=== PATIENT | male | born 1945 | race Caucasian/White ===

== ENCOUNTER 2023-07-04 12:08 | Day surgery (SDC) | payer MEDICARE, SELFPAY ==
[2023-06-28 14:44] LABS: Anion Gap 1 (5-15); BUN 14 mg/dL (7-18); BUN/Creat Ratio 18.5 RATIO (10-20); Calcium,Total 8.9 mg/dL (8.5-10.1); Chloride 105 mmol/L (98-107); Creatinine, Serum 0.76 mg/dL (0.70-1.30); EST Glomerular Filtration Rate 107 mL/min (>60); Est Glom Filt Rate - Afr Amer 129 mL/min (>60); Glucose 122 mg/dL (74-106); Sodium Level 138 mmol/L (136-145)
[2023-07-04 12:43] VITALS: BP 150/70; PULSE 69; RESP 16; TEMP 36.1; O2SAT 95
--- NOTE | 2023-07-04 12:43 | HP.PCM_ITS ---
[facility] - General General Date of Service: 07/04/23 Chief Complaint: Bladder tumor HPI Narrative BRANDYN MCMULLEN, is a 77 M who presents resection of a bladder tumor [facility] Medical History (Updated 07/04/23 @ 12:[address] Tanmay Moon MD) Ambulates with cane Arthritis Former smoker High cholesterol History of edema History of irregular heartbeat Hypertension Injury of head and neck Kidney stones Syncope Wears contact lenses Wears glasses Home Medications amlodipine 10 mg tablet 10 mg PO DAILY 06/25/23 [History Last Taken 07/04/23] ascorbic acid 1,000 mg-bioflavonoids 100 mg tablet, extended release 1 tab PO BID 06/25/23 [History Last Taken Unknown] atorvastatin 20 mg tablet 20 mg PO QHS 06/25/23 [History Last Taken Unknown] diphenhydramine HCl 25 mg capsule (Aler-Cap) 25 mg PO QHS 06/25/23 [History Last Taken Unknown] hydrochlorothiazide 12.5 mg capsule 12.5 mg PO DAILY 06/25/23 [History Last Taken Unknown] latanoprost 0.005 % eye drops 1 drp ophthalmic (eye) QHS 06/25/23 [History Last Taken Unknown] omega 7-cih-kmv-fish oil 60 mg-90 mg-500 mg capsule (Fish Oil) 1 cap PO DAILY 06/25/23 [History Last Taken Unknown] timolol maleate 0.5 % eye drops 1 drp ophthalmic (eye) .QAM 06/25/23 [History Last Taken Unknown] Allergy/AdvReac Type Severity Reaction Status Date / Time No Known Allergies Allergy Verified 07/04/23 12:41 Surgical History (Updated 06/25/23 @ 15:31 by Lisa Winchester) History of dental surgery History of tonsillectomy and adenoidectomy Hx of surgical procedure Hx of surgical procedure Social History Smoking Status: Former smoker Physical Exam Const alert and oriented x3 General Appearance: cooperative HEENT normocephalic, head/scalp atraumatic, EAC's normal and TM's normal bilaterally Eyes PERRL and EOMs intact bilaterally Pupil: sluggish Neck no lymphadenopathy, supple and no JVD General: trachea midline Lymph Lymphatic: no lymphadenopathy noted, lymphedema and lymphadenopathy Resp normal respiratory effort, normal air movement and clear to auscultation bilaterally Cardio regular rate, regular rhythm and peripheral pulses 2+ throughout GI soft to palpation, non-tender and non-distended Extremity normal capillary refill and no clubbing, cyanosis or edema General Extremity: no tenderness to palpation of joints or extremities Skin no rashes or lesions noted General Skin Exam: turgor normal Lesions: no lesions Rashes: no rashes Neuro CN's II-XII intact bilaterally Speech: speech normal Motor Exam: strength 5/5 throughout; Negative for general weakness Psych thought process normal, cooperative and affect normal Appearance: appropriate Results Lab / Micro Data 06/28/23 13:36 Assessment & Plan Assessment/Plan (1) Bladder tumor: PLAN: Plan to proceed with resection of bladder tumor and Mitomycin-C
[2023-07-04] MEDS: Lactated Ringers 1,000 ML 15 ML IV ×2 (12:46→14:51)
[2023-07-04] MEDS: Cefazolin 2 GM in 0.9% Normal Saline (100mL Bag) 100 ML IV (13:11)
--- NOTE | 2023-07-04 13:12 | DCINST_ITS ---
Discharge Instructions Diet Discharge Diet: No restrictions Activity Discharge Activity: Return to Normal Activity and May Not Drive (while taking narcotic pain medications.) Dressing / Incision Call your doctor if you observe: Fever of 101 or Higher Follow Up Care Please Follow Up With: Tanmay Moon MD When: Call [phone] for an appointment Test Results: Test results from this visit will be discussed in further detail at your follow- up appointment, if applicable. Discharge Plan Admission Primary Reason for Your Visit: bladder tumor Attending Provider: Tanmay Moon Primary Care Provider: Shira Mora Discharge Orders/Prescriptions Prescriptions: New oxycodone 5 mg tablet 5 mg PO Q6H PRN (Reason: pain) 7 Days Qty: 14 0RF ciprofloxacin HCl 500 mg tablet 500 mg PO BID Qty: 10 0RF Continued latanoprost 0.005 % drops 1 drp ophthalmic (eye) QHS Patient Comments: INSTILL ONE DROP IN EACH EYE AT BEDTIME timolol maleate 0.5 % drops 1 drp ophthalmic (eye) .QAM Patient Comments: INSTILL ONE DROP IN EACH EYE ONCE DAILY amlodipine 10 mg tablet 10 mg PO DAILY Patient Comments: TAKE 1 TABLET BY MOUTH EVERY DAY hydrochlorothiazide 12.5 mg capsule 12.5 mg PO DAILY Patient Comments: TAKE ONE CAPSULE BY MOUTH EVERY DAY atorvastatin 20 mg tablet 20 mg PO QHS Patient Comments: TAKE ONE TABLET BY MOUTH EVERY DAY AT BEDTIME diphenhydramine HCl [Aler-Cap] 25 mg capsule 25 mg PO QHS ascorbic acid-bioflavonoids 1,000-100 mg tablet extended release 1 tab PO BID omega 3-bez-rjv-fish oil [Fish Oil] 60-90-500 mg capsule 1 cap PO DAILY Referrals / Follow Up: Tanmay Moon MD [Med Staff - Active Staff] - Shira Mora MD [Primary Care Provider] - Disposition Disposition (needs filled in before D/C Order can be placed): Home, Self Care
[2023-07-04] MEDS: MitoMYcin 40 MG in Syringe 1 EACH 2400 MG INSTILLAT (13:49)
--- NOTE | 2023-07-04 13:50 | PCM.OPRPT ---
Report of Operation Date of Procedure: 07/04/23 Pre-Operative Diagnosis: Bladder tumor Post-Operative Diagnosis: Transurethral resection of bladder tumor, the tumor measured 4 cm x 4 cm x 2 cm Surgery/Procedure Performed:: Transurethral action of bladder tumor and instillation of Idamycin C and placement of a right stent Description of Surgical Findings:: Patient presented to the hospital for treatment of a tumor that was found in the bladder with a very large bladder tumor. Patient understands is possible it may not be able to resect the entire tumor. Patient also understands is possible that the patient may need multiple procedures or more invasive procedures to cure him of this cancer. Patient was taken back to the operating room after smooth induction of anesthesia the patient was placed supine on the table. The patient was placed in dorsolithotomy position. The urethra and genitals prepped and draped in usual sterile fashion. I went into the bladder with a 30 degree lens and a cystoscope was performed and identified the tumor the tumors which was about 4 cm x 4 cm x 2 cm in size and occupying mostly the right trigone area of the bladder. I then switched over to the 70 degree lens and inspected the rest of the bladder with a 70 degree lens to make sure there is no other tumors in the bladder and to identify all the tumor locations. The right and left ureteral orifice were identified. The tumor was involved in the Right ureteral orifice. I then placed the Olympus bipolar resectoscope with a large loop into the bladder. I then started resected the tumor and started superficially shaving small little pieces working my way to the base of the tumor. As I went along I then cauterize any bleeders that were encountered during the resection. The tumor pieces were then flushed out of the bladder and continued resecting the tumor until finally I got down to the base of the tumor and the muscle of the bladder was then identified a small little bit of muscle was taken with the resection. The Ellik was used then to evacuate all the tumor pieces out of the bladder. I then cauterized extensively the tumor base and also circumferentially around where the tumor was. Again we made sure to evacuate all the pieces out the bladder. I made sure there was no more bleeding from the base of the bladder and then over the tumor pieces were then evacuated out and sent off as a specimen. I then place a sent on the right side because in order to resect the tumor completely at the resected ureteral orifice so stent was placed on the right side to make sure this orifice healed up properly. All the tissue was sent off for specimen. Matthews catheter was placed. After the resection of the entire tumor was completed then treatment with Mitomycin-C was performed. We then placed the catheter in the bladder and the patient was taken back to the PACU in stable condition. Surgeon: Tanmay Moon Type of Anesthesia: General Specimen's removed: bladder tumor Estimated Blood Loss (mL): 25 Admit VTE Documentation VTE Present on Admission: No VTE Mechan Device Prophylaxis: SCD's VTE Pharm Prophylaxis ordered?: No
[2023-07-04 14:06] VITALS: BP 129/68; BP 150/70; PULSE 65; RESP 16; TEMP 36.4; O2SAT 99
--- NOTE | 2023-07-04 14:10 | BLB_PTH ---
PATHOLOGY RESULTS PATIENT: BRANDYN MCMULLEN LOC: [facility] U#:[id number] AGE/SX: 77/M ROOM: RE07/04/[address]: Dr. Tanmay Moon MD : [id number] BED: DIS: 07/04/2023 SPEC #: [id number] RECD: 07/04/23 14:47 STATUS: GIANNI GALO #: [id number] AUDREY: 07/04/23 14:[address]: Tanmay Moon DEPT: SURGICAL PATHOLOGY RECD BY: Windy England ENTERED: 07/05/23 10:45 SP TYPE: TURB OTHR DR: Dr. Shira Mora MD Tissues: Urinary bladder, NOS Procedures: Surgery Specimen Level V HEADER OPERATION: Transurethral resection of bladder tumor PRE-OP DIAGNOSIS: Bladder tumor TISSUE SUBMITTED: Bladder tumor MICROSCOPIC DIAGNOSIS Bladder tumor, transurethral resection: Papillary urothelial carcinoma, noninvasive. See cancer summary in the comment section. FERNANDA:rg 07/06/2023 COMMENT BLADDER CANCER (TUR) SUMMARY Procedure: Transurethral resection of bladder tumor (TURBT) Tumor site: Not specified Histologic type: Papillary urothelial carcinoma, noninvasive Associated epithelial lesions: None identified Histologic grade: Low grade 1/3 Tumor configuration: Papillary with extensive endophytic pattern Muscularis propria presence: Muscularis propria (detrusor muscle) is present and free of tumor. Lymphvascular invasion: Not identified Tumor extension: Noninvasive papillary carcinoma. Additional pathologic findings: Chronic inflammation. The above summary is in compliance with [employer] (CAP) Cancer Protocols Checklist and [employer] Joint Committee on Cancer (AJCC), Staging Manual, 8th Ed. Case has been reviewed in consultation with Dr. Yung who concurs with the above diagnosis. IDC:AM MICROSCOPIC DESCRIPTION Slides are reviewed. GROSS DESCRIPTION Received in fixative is one container labeled with the patient's name and designated bladder tumor. The specimen consists of multiple irregular fragments of brownish soft tissue that in aggregate measure 4.0 x 2.0 x 0.3 cm. The specimen is totally submitted in two cassettes. / Jennifer 07/05/2023 TC:0 CPT: 26617
[2023-07-04 14:15] VITALS: BP 128/70; BP 150/70; PULSE 63; RESP 16; O2SAT 98
[2023-07-04 14:30] VITALS: BP 124/61; BP 150/70; PULSE 65; RESP 16; O2SAT 97
[2023-07-04 14:45] VITALS: BP 133/74; BP 150/70; PULSE 65; RESP 16; TEMP 36.4; O2SAT 96
--- NOTE | 2023-07-04 14:45 | SUR.PHASEI ---
MITOMYCIN DRAINED FROM BLADDER AND CATHETER REMOVED.
[2023-07-04 15:50] VITALS: BP 121/69; BP 150/70; PULSE 68; RESP 16; TEMP 35.8; O2SAT 92
--- OUTSIDE RECORDS SUMMARY | 2023-07-05 03:39 | XMS RPT_ITS ---
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 Name Role Phone MERRITT POST MD Attending Unavailable MERRITT POST MD Admitting Unavailable MERRITT POST MD Primary Care Unavailable TERESA DOWNEY Consulting Unavailable PROVIDER, UNKNOWN Consulting Unavailable PROVIDER, UNKNOWN Consulting Unavailable PROVIDER, UNKNOWN Consulting Unavailable MERRITT POST MD Primary Care Unavailable MERRITT POST MD Attending Unavailable MERRITT POST MD Admitting Unavailable TERESA DOWNEY Consulting Unavailable PROVIDER, UNKNOWN Consulting Unavailable PROVIDER, UNKNOWN Consulting Unavailable PROVIDER, UNKNOWN Consulting Unavailable MERRITT POST MD Primary Care Unavailable MERRITT POST MD Attending Unavailable MERRITT POST MD Admitting Unavailable TERESA DOWNEY Consulting Unavailable PROVIDER, UNKNOWN Consulting Unavailable PROVIDER, UNKNOWN Consulting Unavailable PROVIDER, UNKNOWN Consulting Unavailable MERRITT POST MD Attending Unavailable MERRITT POST MD Admitting Unavailable MERRITT POST MD Primary Care Unavailable MERRITT POST MD Primary Care Unavailable MERRITT POST MD Attending Unavailable MERRITT POST MD Admitting Unavailable TERESA DOWNEY Consulting Unavailable PROVIDER, UNKNOWN Consulting Unavailable PROVIDER, UNKNOWN Consulting Unavailable PROVIDER, UNKNOWN Consulting Unavailable PROBLEMS DATE TYPE CONDITION / CODE ATTENDING STATUS [facility] 04/11/2023 Principle Diagnosis Gross hematuria / R310(ICD-10) MERRITT POST MD Active [facility] 04/11/2023 Secondary Diagnosis Elevated prostate specific antigen [PSA] / R9720(ICD-10) MERRITT POST MD Active [facility] 04/11/2023 Principle Diagnosis Elevated prostate specific antigen [PSA] / R9720(ICD-10) MERRITT POST MD Active [facility] 01/15/2023 Admitting Diagnosis Essential (primary) hypertension / I10(ICD-10) MERRITT POST MD Active [facility] 01/15/2023 Principle Diagnosis Essential (primary) hypertension / I10(ICD-10) MERRITT POST MD Active [facility] 01/15/2023 Secondary Diagnosis Hyperlipidemia, unspecified / E785(ICD-10) MERRITT POST MD Active [facility] 01/15/2023 Secondary Diagnosis Encounter for screening for malignant neoplasm of prostate / Z125(ICD-10) MERRITT POST MD Active [facility] 07/19/2022 Principle Diagnosis Hyperlipidemia, unspecified / E785(ICD-10) MERRITT POST MD Active [facility] PROCEDURES No Procedure Records Found RESULTS CT ABDOMEN/PELVIS WO Observed: 3 2:12 PM Status: F Source: [place] [id number] Patient: BRANDYN MCMULLEN Phone#: : 1945 Age: 77 Gender: M Pt. Type: Out Account: [id number] Location: Ordering: MERRITT POST Exam Date: 04/19/2023/14:05 Family Phys: Charge Code: 658002 Physician: Rich Order #: [id number] Dose#: 12.0 mGy PROCEDURE: CT ABDOMEN/PELVIS WITHOUT CONTRAST COMPARISON: None. INDICATIONS: Gross hematuria. TECHNIQUE: CT images were created without intravenous contrast. All CT scans at this facility use dose modulation, iterative reconstruction, and/or weight based dosing when appropriate to reduce radiation dose to as low as reasonably achievable. IV CONTRAST: No IV contrast used,0ml TOTAL DOSE: 12.0 CTDIvol(mGy) FINDINGS: LIVER: Normal. No enlargement, atrophy, abnormal density, or significant focal lesion. BILIARY: Normal. No visible dilatation or calcification. PANCREAS: Normal. No lesion, fluid collection, ductal dilatation, or atrophy. SPLEEN: Normal. No enlargement or focal lesion. KIDNEYS: Bilateral renal cysts are present. The largest on the left is 9.5 centimeters. Bilateral nonobstructing renal calculi are present. ADRENALS: Normal. No mass or enlargement. AORTA/VASCULAR: Calcification is present. No aneurysm. RETROPERITONEUM: Normal. No mass or adenopathy. BOWEL/MESENTERY: Normal. No visible mass, obstruction, or bowel wall thickening. ABDOMINAL WALL: Normal. No mass or hernia. URINARY BLADDER: Normal. No visible focal wall thickening, lesion, or calculus. PELVIC NODES: Normal. No adenopathy. PELVIC ORGANS: The prostate impresses on the base of bladder and measures 4.9 x 5.7 x 4.9 centimeters. BONES: Degenerative changes of the spine are present. There is minimal anterolisthesis at the L4-5 level. L4-5 and L5-S1 interspaces are narrowed. LUNG BASES: Normal. No visible pulmonary or pleural disease. OTHER: Negative. Continued Report - Page 2 of 2 Patient: BRANDYN MCMULLEN Phone#: : 1945 Age: 77 Gender: M Pt. Type: Out Account: [id number] Location: Ordering: MERRITT BRANDEE Exam Date: 04/19/2023/14:05 Family Phys: Charge Code: [id number] Physician: Rich Order #: [id number] Dose#: 12.0 mGy CONCLUSION: 1. Bilateral renal cysts are present. 2. Bilateral nonobstructing renal calculi are present. 3. There is no evidence of ureteral calculus. Dictated by: Tiny Urban MD on 04/19/2023 at 15:46 Approved by: Tiny Urban MD on 04/19/2023 at 15:54 CBC + DIFF Collected: 3 3:05 PM Status: F Source: [facility] REPOSITORY TYPE CODE TESTS RESULT OUT OF RANGE REFERENCE UNITS LAB CBC + DIFF(LOINC) CBC + DIFF Result Comment: CBC-COMPLETE BLOOD COUNT LAB WBC(LOINC) WBC 5.9 4.5 - 10.8 x 10EE3/UL LAB RBC(LOINC) RBC 5.15 4.50 - 6.00 x 10EE6/UL LAB HEMOGLOBIN(JENNIFER NC) HEMOGLOBIN 15.8 13.0 - 17.5 g/dl LAB HEMATOCRIT(JENNIFER NC) HEMATOCRIT 48.0 40.0 - 52.0 % LAB MCV(LOINC) MCV 93 81 - 98 fl LAB MCH(LOINC) MCH 31 27 - 33 pg LAB MCHC(LOINC) MCHC 33 32 - 36 X10 3 LAB RDW/CV(LOINC) RDW/CV 14.5 12.0 - 15.6 % LAB PLATELET(LOINC ) PLATELET 250 150 - 450 x10EE3/U L LAB MPV(LOINC) MPV 8.2 6.4 - 10.5 fl Result Comment: AUTOMATED DI FFERENTIAL LAB NEUT %(LOINC) NEUT % 65.2 46.0 - 76.0 % LAB LYMPH %(LOINC) LYMPH % 22.0 20.0 - 45.0 % LAB MONOS %(LOINC) MONOS % 8.3 0.0 - 10.0 % LAB EO %(LOINC) EO % 3.9 0.0 - 7.0 % LAB BASO %(LOINC) BASO % 0.6 0.0 - 2.0 % LAB Lymph #(LOINC) Lymph # 1.30 0.80 - 2.80 x10EE 3/U L LAB Neut #(LOINC) Neut # 3.80 1.50 - 7.10 x10EE3 /U L LAB [place]ter[place] #(LOINC) Otero # 0.50 0.20 - 1.00 x10EE3 /U L LAB EO #(LOINC) EO # 0.20 0.00 - 0.50 x10EE3/U L LAB Baso #(LOINC) Baso # 0.00 0.00 - 0.10 x10EE3 /U L LAB MANUAL DIFF(LOINC) MANUAL DIFF N/A LAB MORPHOLOGY(JENNIFER NC) MORPHOLOGY N/A Performed By: #### [id number] ## ## [facility],[address] [place], [place] [id number] BMP WITH EGFR Collected: 3 3:05 PM Status: F Source: [facility] REPOSITORY TYPE CODE TESTS RESULT OUT OF RANGE REFERENCE UNITS LAB BMP with eGFR(LOINC) BMP with eGFR Result Comment: BASIC METABO LIC PANEL LAB SODIUM(LOINC) SODIUM 142 136 - 145 mmol/l LAB POTASSIUM(LOIN C) POTASSIUM 3.8 3.5 - 5.1 mmol/L LAB CHLORIDE(LOINC ) CHLORIDE 105 98 - 107 mmol/L LAB CO2(LOINC) CO2 25.9 21.0 - 32.0 mmol/L LAB GLUCOSE(LOINC) GLUCOSE 109 High 74 - 106 mg/dl LAB BUN(LOINC) BUN 14 7 - 18 mg/dl LAB CREATININE(JENNIFER NC) CREATININE 0.80 0.70 - 1.30 mg/dl LAB CALCIUM(LOINC) CALCIUM 8.7 8.5 - 10.1 mg/dl LAB ANION GAP(LOINC) ANION GAP 15 10 - 20 mmol/L LAB AGE(LOINC) AGE 77 years LAB eGFR(LOINC) eGFR >60 60 - 999 ML/MINUTE LAB eGFR(AA)(LOINC ) eGFR(AA) >60 60 - 999 ML/MINUTE Result Comment: ACCORDING TO THE NATIONAL KIDNEY DISEASE EDUCATION PROGRAM(NKDE), A NORMAL eGFR IS A VALUE GREATER THAN OR EQUAL TO 60 ML/MIN/1.73 SQ METERS. CHRONIC KIDNEY DISEASE: <60mL/MIN/1.73 SQ METERS KIDNEY FAILURE: <15mL/MIN/1.73 SQ METERS THIS TEST SHOULD ONLY BE USED FOR PATIENTS 18 YEARS OF AGE AND OLDER. Performed By: #### [id number] ## ## [place] [id number] PSA CANCER SCREENING (G0103) Collected: 04/11/2023 3:05 PM Status: F Source: [facility] REPOSITORY TYPE CODE TESTS RESULT OUT OF RANGE REFERENCE UNITS LAB PSA(INC) PSA 4.69 High 0.00 - 4.00 ng/ml Performed By: #### [id number] ## ## [place] [id number] URINALYSIS Collected: 3:05 PM Status: F Source: [facility] REPOSITORY TYPE CODE TESTS RESULT OUT OF RANGE REFERENCE UNITS LAB URINALYSIS(JENNIFER NC) URINALYSIS Result Comment: URINALYSIS LAB Specimen Type(LOINC) Specimen Type R LAB Color(LOINC) Color red NORMAL: YELLOW LAB Clarity(LOINC) Clarity bloody IVAN L: CLEAR LAB ph(LOINC) ph 6.5 NORMAL: 5.0-8.0 LAB Protein(LOINC) Protein 100 Abnormal IVAN L: NEGATIVE LAB Glucose(LOINC) Glucose NORM IVAN L: NORMAL LAB Ketone(LOINC) Ketone 5 Abnormal NORMAL : NEGATIVE LAB Bilirubin(LOIN C) Bilirubin NEG NORMAL: NEGATIVE LAB Blood(LOINC) Blood 250 Abnormal NORMAL: NEGATIVE LAB Urobilinog(JENNIFER NC) Urobilinog NORM NORMAL: NORMAL LAB Sp [place](LOINC) Sp [place] 1.010 NORMAL: 1.010-1.030 LAB Nitrite(LOINC) Nitrite NEG IVAN L: NEGATIVE LAB Leukocytes(JENNIFER NC) Leukocytes 25 Abnormal NORMAL: NEGATIVE LAB Microscopic(LO INC) Microscopic SEE BELOW Result Comment: MICROSCOPIC LAB Wbc(LOINC) Wbc 1-5 0-5/hpf LAB Rbc(LOINC) Rbc TNTC 0-3/hpf LAB Casts(LOINC) Casts NONE LAB Crystals(LOINC ) Crystals NONE LAB Amorphous(LOIN C) Amorphous NONE LAB Bacteria(LOINC ) Bacteria NONE LAB Epi Cells(LOINC) Epi Cells OCC LAB Mucous(LOINC) Mucous NONE LAB Yeast(LOINC) Yeast NONE Performed By: #### [id number] ## ## [place] [id number] PSA CANCER SCREENING ([id number]) Collected: 01/15/2023 11:18 AM Status: F Source: [facility] REPOSITORY TYPE CODE TESTS RESULT OUT OF RANGE REFERENCE UNITS LAB PSA(LOINC) PSA 4.41 High 0.00 - 4.00 ng/ml Performed By: #### [id number] ## ## [facility],[address] [place] [address] LIPID PROFILE Collected: 11:18 AM Status: F Source: [facility] REPOSITORY TYPE CODE TESTS RESULT OUT OF RANGE REFERENCE UNITS LAB LIPID PROFILE(LOINC) LIPID PROFILE Result Comment: LIPID PROFIL E LAB TRIGLYCERIDE(LO INC) TRIGLYCERIDE 66 0 - 150 mg/dl LAB CHOLESTEROL(JENNIFER NC) CHOLESTEROL 133 0 - 240 mg/dl LAB HDL(LOINC) HDL 58 40 - 60 mg/dl LAB CHOL/HDL(LOINC) CHOL/HDL 2.3 0.0 - 5.0 LAB LDL(LOINC) LDL 62 0 - 129 mg/dl Performed By: #### [id number] ## ## [facility],[address] [place] [address] CMP WITH EGFR Collected: 3 11:18 AM Status: F Source: [facility] REPOSITORY TYPE CODE TESTS RESULT OUT OF RANGE REFERENCE UNITS LAB CMP with eGFR(LOINC) CMP with eGFR Result Comment: COMPREHENSIV E METABOLIC PANEL LAB SODIUM(LOINC) SODIUM 142 136 - 145 mmol/l LAB POTASSIUM(LOIN C) POTASSIUM 3.6 3.5 - 5.1 mmol/L LAB CHLORIDE(LOINC ) CHLORIDE 103 98 - 107 mmol/L LAB CO2(LOINC) CO2 28.9 21.0 - 32.0 mmol/L LAB GLUCOSE(LOINC) GLUCOSE 98 74 - 106 mg/dl LAB BUN(LOINC) BUN 11 7 - 18 mg/dl LAB CREATININE(JENNIFER NC) CREATININE 0.78 0.70 - 1.30 mg/dl LAB AST/SGOT(LOINC ) AST/SGOT 18 15 - 37 U/L LAB ALK PHOS(LOINC) ALK PHOS 94 46 - 116 U/L LAB CALCIUM(LOINC) CALCIUM 9.0 8.5 - 10.1 mg/dl LAB TOTAL PROTEIN(LOINC) TOTAL PROTEIN 6.9 6.4 - 8.2 g/dl LAB ALBUMIN(LOINC) ALBUMIN 3.7 3.4 - 5.0 g/dL LAB GLOBULIN(LOINC ) GLOBULIN 3.2 1.5 - 3.8 G/DL LAB A/G RATIO(LOINC) A/G RATIO 1.2 0.9 - 1.6 LAB TOTAL BILI(LOINC) TOTAL BILI 0.7 0.2 - 1.0 mg/dl LAB B/C RATIO(LOINC) B/C RATIO 14 0 - 30 ratio LAB ALT/SGPT(LOINC ) ALT/SGPT 25 16 - 63 U/L LAB ANION GAP(LOINC) ANION GAP 14 10 - 20 mmol/L LAB AGE(LOINC) AGE 77 years LAB eGFR(LOINC) eGFR >60 60 - 999 ML/MINUT E LAB eGFR(AA)(LOINC ) eGFR(AA) >60 60 - 999 ML/MINUT E Result Comment: ACCORDING TO THE NATIONAL KIDNEY DISEASE EDUCATION PROGRAM(NKDE), A NORMAL eGFR IS A VALUE GREATER THAN OR EQUAL TO 60 ML/MIN/1.73 SQ METERS. CHRONIC KIDNEY DISEASE: <60mL/MIN/1.73 SQ METERS KIDNEY FAILURE: <15mL/MIN/1.73 SQ METERS THIS TEST SHOULD ONLY BE USED FOR PATIENTS 18 YEARS OF AGE AND OLDER. Performed By: #### [id number] ## ## [facility],[address] [place] [address] CBC + DIFF Collected: 3 11:18 AM Status: F Source: [facility] REPOSITORY TYPE CODE TESTS RESULT OUT OF RANGE REFERENCE UNITS LAB CBC + DIFF(LOINC) CBC + DIFF Result Comment: CBC-COMPLETE BLOOD COUNT LAB WBC(LOINC) WBC 7.0 4.5 - 10.8 x 10EE3/UL LAB RBC(LOINC) RBC 5.33 4.50 - 6.00 x 10EE6/UL LAB HEMOGLOBIN(JENNIFER NC) HEMOGLOBIN 16.5 13.0 - 17.5 g/dl LAB HEMATOCRIT(JENNIFER NC) HEMATOCRIT 48.3 40.0 - 52.0 % LAB MCV(LOINC) MCV 91 81 - 98 fl LAB MCH(LOINC) MCH 31 27 - 33 pg LAB MCHC(LOINC) MCHC 34 32 - 36 X10 3 LAB RDW/CV(LOINC) RDW/CV 14.0 12.0 - 15.6 % LAB PLATELET(LOINC ) PLATELET 227 150 - 450 x10EE3/U L LAB MPV(LOINC) MPV 8.4 6.4 - 10.5 fl Result Comment: AUTOMATED DI FFERENTIAL LAB NEUT %(LOINC) NEUT % 57.2 46.0 - 76.0 % LAB LYMPH %(LOINC) LYMPH % 26.9 20.0 - 45.0 % LAB MONOS %(LOINC) MONOS % 8.5 0.0 - 10.0 % LAB EO %(LOINC) EO % 7.2 High 0.0 - 7.0 % LAB BASO %(LOINC) BASO % 0.2 0.0 - 2.0 % LAB Lymph #(LOINC) Lymph # 1.90 0.80 - 2.80 x10EE 3/U L LAB Neut #(LOINC) Neut # 4.00 1.50 - 7.10 x10EE3 /U L LAB Otero #(LOINC) Otero # 0.60 0.20 - 1.00 x10EE3 /U L LAB EO #(LOINC) EO # 0.50 0.00 - 0.50 x10EE3/U L LAB Baso #(LOINC) Baso # 0.00 0.00 - 0.10 x10EE3 /U L LAB MANUAL DIFF(LOINC) MANUAL DIFF SEE BELOW LAB SEGS(LOINC) SEGS 57 50 - 70 % LAB LYMPH(LOINC) LYMPH 28 20 - 40 % LAB MONOS(LOINC) MONOS 8 0 - 8 % LAB EO(LOINC) EO 6.0 High 0.0 - 4.0 % LAB BASO(LOINC) BASO 1.0 0.0 - 2.0 % LAB CELL COUNT(LOINC) CELL COUNT 100 LAB MORPHOLOGY(JENNIFER NC) MORPHOLOGY REVIEWED Performed By: #### [id number] ## ## [place] [id number] LIPID PROFILE Collected: 07/19/2022 1:33 PM Status: F Source: [facility] REPOSITORY TYPE CODE TESTS RESULT OUT OF RANGE REFERENCE UNITS LAB LIPID PROFILE(LOINC) LIPID PROFILE Result Comment: LIPID PROFIL E LAB TRIGLYCERIDE(LO INC) TRIGLYCERIDE 79 0 - 150 mg/dl LAB CHOLESTEROL(JENNIFER NC) CHOLESTEROL 138 0 - 240 mg/dl LAB HDL(LOINC) HDL 57 40 - 60 mg/dl LAB CHOL/HDL(LOINC) CHOL/HDL 2.4 0.0 - 5.0 LAB LDL(LOINC) LDL 65 0 - 129 mg/dl Performed By: #### [id number] ## ## [place] [id number] HEPATIC FUNCTION PANEL Collected: 07/19/2022 1:33 PM Status: F Source: [facility] REPOSITORY TYPE CODE TESTS RESULT OUT OF RANGE REFERENCE UNITS LAB HEPATIC FUNCTION PANEL(LOINC) HEPATIC FUNCTION PANEL Result Comment: HEPATIC FUNC TION PROFILE LAB ALBUMIN(LOINC) ALBUMIN 3.5 3.4 - 5.0 g/dL LAB ALK PHOS(LOINC) ALK PHOS 110 46 - 116 U/L LAB AST/SGOT(LOINC) AST/SGOT 16 15 - 37 U/L LAB ALT/SGPT(LOINC) ALT/SGPT 22 16 - 63 U/L LAB TOTAL BILI(LOINC) TOTAL BILI 0.6 0.2 - 1.0 mg/dl LAB DIRECT BILI(LOINC) DIRECT BILI 0.1 0.0 - 0.2 mg/dl LAB TOTAL PROTEIN(LOINC) TOTAL PROTEIN 7.0 6.4 - 8.2 g/dl Performed By: #### [id number] ## ## [facility],[address] [place] [address] ALLERGIES No Allergies Records Found ENCOUNTERS ADMIT/DISCHARGE ACCOUNT NUMBER ADMITTING ENCOUNTER CLASS LOCATION SOURCE 04/19/2023/ 3 [id number] MERRITT POST MD Ambulatory Building:[facility] 04/11/2023/ 3 [id number] MERRITT POST MD Ambulatory Building:[facility] 04/11/2023 [id number] MERRITT POST MD Ambulatory Building:[facility] 01/15/2023/ 3 [id number] MERRITT POST MD Ambulatory Building:[facility] 07/19/2022/ 2 [id number] MERRITT POST MD Ambulatory Building:[facility] PAYERS ENCOUNTER GUARANTOR PAYER SUBSCRIBER SOURCE 04/19/2023 BRANDYN Saenz [place]: [id number] [address] [address]Wsc: () Primary Insurance:[employer] MEDICARE ADVANTAGE OUTPATIENTPolicy Number: [id number] Date:Plan Name: BRANDYN Saenz [place]: [id number] [address] [address] [facility] 04/19/2023 Secondary Insurance:MEDICAREPolicy Number: [id number] Date: BRANDYN Saenz [place]: [id number] [address] [address] [facility] 04/11/2023 BRANDYN MCMULLENDOB: [address] [address]Azq: (HP) Primary Insurance:HUMANAPolicy Number: [id number] Date:Plan Name:NAVI MCMULLENDOB: [id number] [address] [address] [facility] 04/11/2023 Secondary Insurance:MEDICAREPolicy Number: [id number] Date:Plan Name:NAVI MCMULLENDOB: [id number] [address] [address] [facility] 04/11/2023 BRANDYN MCMULLENDOB: [id number] [address] [address]Htz: (HP) Primary Insurance:HUMANAPolicy Number: [id number] Date:Plan Name:NAVI MCMULLENDOB: [id number] [address] [address] [facility] 04/11/2023 Secondary Insurance:MEDICAREPolicy Number: [id number] Date: BRANDYN ORDOÑEZB: [id number] [address] [address] [facility] 01/15/2023 BRANDYN MCMULLENDOB: [address] [address]Qzs: (HP) Primary Insurance:HUMA[employer] MEDICARE ADVANTAGE OUTPATIENTPolicy Number: [id number] Date:Plan Name:OBIE ORDOÑEZB: [id number] [address] [address] [facility] 07/19/2022 BRANDYN MCMULLENDOB: [id number] [address] [address]Jad: (HP) [facility] Insurance:[facility]icy Number: [id number] Date:Plan Name:NAVI HEATON: [id number] [address] [address] [facility] 07/19/2022 Secondary Insurance:MEDICAREPolicy Number: [id number] Date:Plan Name:MALATHI HEATON: [id number] [address] [address] [facility]
== END 2023-07-04 15:59 | disposition home or self-care (01) ==
LOC: SDC 12:09 → AC 12:09
PROVIDERS: Anesthesiology; PCP Student in an Organized Health Care Education/Training Program; Referring Provider Urology; Visit Provider Urology
PROC: 0TBB8ZZ Excision of Bladder, Via Natural or Artificial Opening Endoscopic (ICD-10-PCS; CPT 52235; principal; 2023-07-04 14:00)
DX: C67.9 Malignant neoplasm of bladder, unspecified (principal); I10 Essential (primary) hypertension; E78.00 Pure hypercholesterolemia, unspecified; Z87.891 Personal history of nicotine dependence; Z79.899 Other long term (current) drug therapy
CPT/HCPCS: 52235; 00912; 36415; 80048; 88307; 93005; J7120; J9280; C1769; C2617; J2405

== ENCOUNTER 2024-05-16 09:26 | Day surgery (SDC) | payer MEDICARE, SELFPAY ==
[2024-05-16] VITALS (9 sets, daily range): BP systolic 90–140; BP diastolic 56–82; PULSE 55–70; RESP 16; TEMP 36.1–36.3; O2SAT 92–100; BMI 25.4
--- NOTE | 2024-05-16 | URE_PTH ---
PATIENT: BRANDYN MCMULLEN [place] [facility] [place][id number] AGE/SX: 78/M ROOM: RE05/16/[address]: Dr. Tanmay Moon MD : 1945 BED: DIS: 05/16/2024 SPEC #: [id number] RECD: 05/16/24 11:07 STATUS: GIANNI GALO #: [id number] AUDREY: 05/16/24 00:[address]: Tanmay Moon DEPT: SURGICAL PATHOLOGY RECD BY: Windy England ENTERED: 05/16/24 13:21 SP TYPE: URETER BX OTHR DR: Dr. Shira Mora MD Tissues: A - Ureter, NOS B - Ureter, NOS Procedures: Surgery Specimen Level IV HEADER OPERATION: Transurethral resection bladder, right ureteroscopy PRE-OP DIAGNOSIS: Malignant neoplasm of trigone of bladder, hydromephrosis with ureteral stricture TISSUE SUBMITTED: A- Biopsy of ureteral mass #1, B- Biopsy of ureteral mass #2 MICROSCOPIC DIAGNOSIS A. Ureteral mass #1, biopsy: Fragments of stone. See comment. B. Ureteral mass #2, biopsy: A fragment of urothelial mucosa with minimal chronic inflammation and foreign body giant cell reaction. Negative for malignancy. FERNANDA/ 05/19/2024 COMMENT A. No urothelial tissue is identified in the specimen. Correlation with clinical, cystoscopy findings and appropriate follow up are necessary. MICROSCOPIC DESCRIPTION Slides are reviewed. GROSS DESCRIPTION A. Received in fixative is one container labeled with the patient's name and designated Biopsy of ureteral mass #1. The specimen consists of three fragments of burris-brown indurate tissue/?stones measuring in aggregate 0.4 x 0.1 x 0.1cm. The entire specimen is submitted in one cassette. B. Received in fixative is one container labeled with the patient's name and designated Biopsy of ureteral mass #2. The specimen consists of one irregular fragment of light burris soft tissue that measures 0.2 x 0.2 x 0.1 cm. The specimen is totally submitted in one cassette. FERNANDA/ 05/16/2024 TC:3 CPT:[id number]
[2024-05-16] MEDS: Lactated Ringers 1,000 ML 15 ML IV (10:05)
--- NOTE | 2024-05-16 10:15 | PCM.PRE.AN2 ---
ASA Classification* ASA Classification ASA Classification: 2 Assessment & Plan Anesthesia* Anesthesia Assessment Anesthesia Assessment: Discussed sedation and/or anesthesia options, risks, benefits, and alternatives with patient/parents/legal guardian/POA. Questions invited. The patient/parents/legal guardian/POA seems to understand and agrees to proceed with anesthesia plan. Reviewed the physical assessment, medical history, allergy history and patient home medications list prior to surgery/procedure/anesthetic and documented any changes. Performed airway and anesthesia risk assessments. Anesthesia Type Anesthesia Type: General Anesthesia Focused Assessment* Temperature: 97.2 F Pulse Rate: 70 Blood Pressure: 140/82 Respiratory Rate: 16 Pulse Ox: 95 Airway Assessment Mouth opens: >3 cm Mallampati Score: II Focused Labs Anesthesia Preop lab: CBC CHEMISTRY Potassium 4.0 mmol/L (3.5-5.1) 06/28/23 13:36 Sodium 138 mmol/L (136-145) 06/28/23 13:36 BUN 14 mg/dL (7-18) 06/28/23 13:36 Creatinine 0.76 mg/dL (0.70-1.30) 06/28/23 13:36 Glucose 122 mg/dL (74-106) H 06/28/23 13:36 COAG Pre-Assessment Diagnosis/Proposed Procedure Planned Operative Procedure(s): RIGHT TUR OF URETERAL ORIFICE AND RIGHT URETEROSCOPY LASER STONE RIGHT STENT Anesthesia History 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 When Was Last Pacemaker Check QUESTION #4 FULL TEXT: You/Your Family Experience fever (hyperthermia) with Anesthesia Last Oral Intake Last Oral intake: Last Oral Intake NPO since 07:00 05/16/24 10:00 Meds taken in AM with sips of Yes 05/16/24 10:00 water? Meds patient instructed to amlodipine 05/16/24 10:00 take am of surgery PONV PONV - electrician journeyman wireman: PONV - electrician journeyman wireman Female Yes 05/14/24 13:08 HX of Motion Sickness No 05/14/24 13:08 HX of N/V After Surgery No 05/14/24 13:08 Non-Smoker No 05/14/24 13:08 Duration of Surgery greater Yes 05/14/24 13:08 than 60 minutes Number of Risk Factors 2 05/14/24 13:08 PONV Score Moderate Risk 05/14/24 13:08 Height & Weight Height & Weight: Anesthesia: Height & Weight Height 6 ft 1 in 05/16/24 10:00 Weight: 87.6 kg 05/16/24 10:00 Body Mass Index (BMI) 25.4 05/16/24 10:00 Respiratory Assessment Respiratory Assessment - electrician journeyman wireman: Respiratory Tract Infection Hx - electrician journeyman wireman Hx Respiratory Tract Infection No 05/14/24 13:08 STOP Sleep Apnea STOP Sleep Apnea - electrician journeyman wireman: STOP Sleep Apnea - electrician journeyman wireman Hx Hypertension Yes: CONTROLLED WITH MED 05/14/24 13:08 Hx Sleep Apnea No 05/14/24 13:08 CPAP BIPAP Do you snore loudly (louder No 05/14/24 13:08 than talking or can be heard Do you often feel tired/ No 05/14/24 13:08 fatigued/ sleepy during daytime? Has anyone observed you stop No 05/14/24 13:08 breathing during sleep? STOP Results Negative 05/14/24 13:08 QUESTION #5 FULL TEXT : Do you snore loudly (louder than talking or can be heard through closed doors)? 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 Specify any problems Hx of Preganancy in last 3 N/A 05/14/24 13:08 Months Nurse Filling Out Transfusion DSCHRIBER 05/14/24 13:08 & Questions: Date: 05/14/24 05/14/24 13:08 Time: 13:10 05/14/24 13:08 Patient unable to answer at this time (ie. confused, unrespo /Reproduction History /Reproductive History - electrician journeyman wireman: /Reproductive Hx- electrician journeyman wireman Hx Now No 05/14/24 13:08 Gestational Age (in weeks): EDC: Hx Hx Para Hx Section SAB Active Medications Active Medications: Current Medications Generic Name Dose Route Start Last Admin Trade Name Freq PRN Reason Stop Dose Admin Cefazolin Sodium 2 gm/ Sodium 110 mls @ 150 mls/hr 05/16/24 11:50 Chloride IV 05/16/24 12:33 PREOP ONE Lactated Ringer's 1,000 mls @ 15 mls/hr 05/16/24 09:45 05/16/24 10:05 IV 15 mls/hr .Q48H CASI Administration PFSH Medical History Loss of hearing Cancer Shortness of breath on exertion Smoker Wears glasses Wears contact lenses Ambulates with cane Arthritis High cholesterol Injury of head and neck Syncope History of edema Hypertension History of irregular heartbeat Home Medications ?Medication ?Instructions ?Recorded ?Last Taken ?Type amlodipine 10 mg tablet 10 mg PO DAILY 06/25/23 05/16/24 History atorvastatin 20 mg tablet 20 mg PO QHS 06/25/23 Unknown History hydrochlorothiazide 12.5 mg capsule 12.5 mg PO DAILY 06/25/23 Unknown History latanoprost 0.005 % eye drops 1 drp ophthalmic (eye) QHS 06/25/23 Unknown History timolol maleate 0.5 % eye drops 1 drp ophthalmic (eye) .QAM 06/25/23 Unknown History Allergy/AdvReac Type Severity Reaction Status Date / Time No Known Allergies Allergy Verified 05/16/24 09:55 Surgical History History of transurethral resection of bladder tumor (TURBT) History of dental surgery Hx of surgical procedure Hx of surgical procedure History of tonsillectomy and adenoidectomy Social History Smoking Status: Current every day smoker tobacco type: cigarettes Review of Systems (Anesthesia) ROS Narrative System reviewed and no additional complaints, except as documented.
[2024-05-16] MEDS: Cefazolin 2 GM in 0.9% Normal Saline (100mL Bag) 100 ML IV (10:29)
--- NOTE | 2024-05-16 12:17 | PCM.HP.STD ---
HPI - General General Date of Service: 05/16/24 Chief Complaint: Obstructed right ureter history of bladder cancer and also kidney stones HPI Narrative BRANDYN MCMULLEN, is a 78 M who presents to resect open the right ureter lasered some stones placed a stent on the right side has a history of bladder cancer PFSH Medical History Loss of hearing Cancer Shortness of breath on exertion Smoker Wears glasses Wears contact lenses Ambulates with cane Arthritis High cholesterol Injury of head and neck Syncope History of edema Hypertension History of irregular heartbeat Home Medications ?Medication ?Instructions ?Recorded ?Last Taken ?Type amlodipine 10 mg tablet 10 mg PO DAILY 06/25/23 05/16/24 History atorvastatin 20 mg tablet 20 mg PO QHS 06/25/23 Unknown History hydrochlorothiazide 12.5 mg capsule 12.5 mg PO DAILY 06/25/23 Unknown History latanoprost 0.005 % eye drops 1 drp ophthalmic (eye) QHS 06/25/23 Unknown History timolol maleate 0.5 % eye drops 1 drp ophthalmic (eye) .QAM 06/25/23 Unknown History ibuprofen 600 mg tablet 600 mg PO Q6H PRN fever or pain 3 05/16/24 Unknown Rx days #20 tabs Allergy/AdvReac Type Severity Reaction Status Date / Time No Known Allergies Allergy Verified 05/16/24 09:55 Surgical History History of transurethral resection of bladder tumor (TURBT) History of dental surgery Hx of surgical procedure Hx of surgical procedure History of tonsillectomy and adenoidectomy Social History Smoking Status: Current every day smoker tobacco type: cigarettes Vital Signs Vital Signs Vital Signs: 05/16/24 10:00 05/16/24 10:00 05/16/24 10:15 Temperature 97.2 F L 97.2 F L Temperature Source Temporal Pulse Rate 70 70 Respiratory Rate 16 16 Respiratory Pattern Normal Blood Pressure 140/82 H 140/82 H Blood Pressure Mean 101 Blood Pressure Source Monitor Blood Pressure Position Sitting Blood Pressure Location Right Arm Pulse Ox 95 95 Oxygen Delivery Method Room Air Weight Weight: 87.6 kg Body Mass Index (BMI) 25.4
--- NOTE | 2024-05-16 12:18 | OP.PCM_ITS ---
Report of Operation Date of Procedure: 05/16/24 Pre-Operative Diagnosis: History of bladder cancer, right ureteral stones, kidn ey stones, ureteral tumor Post-Operative Diagnosis: Ureteral tumor Surgery/Procedure Performed:: Cystoscopy and transurethral resection of the right ureteral orifice, right ureteroscopy laser lithotripsy of stones and basket of fragments, right ureteroscopy biopsy of ureteral mass and fulguration of mass with laser, right ureteroscopy laser lithotripsy of multiple large fragments in the right kidney and stent placement Description of Surgical Findings:: The gentleman that I been following for bladder cancer on cystoscopy is found to have obstructed ureteral orifice on the right side and severe hydronephrosis by ultrasound has a history of known kidney stones in the right side so today and taken the surgery to unblock the right kidney go up with the ureteroscope and inspect the right kidney Patient was taken back to the operating room after smooth induction of anesthesia he was placed in dorsolithotomy position. 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 The scope was able to get to the stricture was quite tight and the urethra. I then used the resectoscope and resected the right side of the bladder and resected the right ureteral orifice and then I could see the ureteral orifice open. I then put a wire up the right ureteral orifice and left the wire in place. I then went up the ureter with a semirigid ureteroscope and immediately encountered a stone in the distal ureter. I used a 265 ?m laser fiber laser the stone little tiny pieces and the basket the fragments out with a tipless nitinol basket. I then went up the ureter further with the ureteroscope and encountered what appeared to be a ureteral tumor or polyp. A biopsy of this was done with the basket and then I used the laser to laser and ablate the tumor in the mid ureter with the laser once the tumor was completely ablated then I backed out from the ureter I went back in the ureter with the flexible ureteroscope and the stone I worked my way into the ureter on fluoroscopy I could identify that there was a large stone in the mid ureter I first wire was given a hard time getting past the stone and then I was able to manipulate the wire past the stone and then put a second wire past the stone and I went over the second wire with the flexible ureteroscope and was able to get into the kidney then on fluoroscopy identified that there was 2 very large stone fragments midpole and lower pole the kidney I then proceeded with laser lithotripsy of both the stone fragments took a really long time and had to increase the power on the thulium laser up to 0.4, and then 0.6 J and 100 Hz and was set at 60 W and I lasered both the stones until tiny little pieces after successfully lasering lasering these huge stones in the midpole in the lower pole the kidney is quite difficult to reach both the stones but at the end I was satisfied and I lasered both the stones completely. Then we left the safety wire in place I worked on way down the ureter I did not see any other tumors in the kidney or in the long the ureter only the one tumor was identified this was biopsied and fulgurated as described above. I then backed out of the ureter and then we went back in and backloaded over the safety wire with the cystoscope and then we placed a stent on the right side. I will see the patient for checkup in 2 weeks to review the biopsy results will leave the stent in for a total of 6 weeks to let the ureter heal up and lateral of fragments passed that were lasered from the right kidney. Patient anesthetic was reversed and is taken back to the PACU in good condition surgery time was quite long since we have the do multiple procedures. Surgeon: Tanmay Moon Type of Anesthesia: General Drains: stent Estimated Blood Loss (mL): 0 Admit VTE Documentation VTE Present on Admission: No VTE Mechan Device Prophylaxis: SCD's VTE Pharm Prophylaxis ordered?: No
--- NOTE | 2024-05-16 12:18 | PCM.DC ---
Discharge Instructions Diet Discharge Diet: No restrictions Activity Discharge Activity: Return to Normal Activity and May Not Drive (while taking narcotic pain medications.) Dressing / Incision Call your doctor if you observe: Fever of 101 or Higher Follow Up Care Please Follow Up With: Tanmay Moon MD When: Call [phone] for an appointment Test Results: Test results from this visit will be discussed in further detail at your follow-up appointment, if applicable. Discharge Plan Admission Primary Reason for Your Visit: laser stone and stent Attending Provider: Tanmay Moon Primary Care Provider: Shira Mora Instructions Patient Instructions: Kidney Stone (Urine), Having a Ureteral Stent, Kidney Stone Ureteroscopy Print Language: Armenian Discharge Orders/Prescriptions Prescriptions: New ibuprofen 600 mg tablet 600 mg PO Q6H PRN (Reason: fever or pain) 3 Days Qty: 20 0RF Continued latanoprost 0.005 % drops 1 drp ophthalmic (eye) QHS Patient Comments: INSTILL ONE DROP IN EACH EYE AT BEDTIME timolol maleate 0.5 % drops 1 drp ophthalmic (eye) .QAM Patient Comments: INSTILL ONE DROP IN EACH EYE ONCE DAILY amlodipine 10 mg tablet 10 mg PO DAILY Patient Comments: TAKE 1 TABLET BY MOUTH EVERY DAY hydrochlorothiazide 12.5 mg capsule 12.5 mg PO DAILY Patient Comments: TAKE ONE CAPSULE BY MOUTH EVERY DAY atorvastatin 20 mg tablet 20 mg PO QHS Patient Comments: TAKE ONE TABLET BY MOUTH EVERY DAY AT BEDTIME Referrals / Follow Up: Tanmay Moon MD [Med Staff - Active Staff] - Shira Mora MD [Primary Care Provider] - Disposition Disposition (needs filled in before D/C Order can be placed): Home, Self Care
--- NOTE | 2024-05-16 13:16 | PCM.POST.ANE ---
Anesthesia: Postop Eval I Current Vital Signs Temperature: 97 F Pulse Rate: 64 Blood Pressure: 123/66 Respiratory Rate: 16 Pulse Ox: 100 Oxygen Delivery Method: Room Air Assessment Airway patent: Yes Spontaneous unlabored respirations: Yes Mental status: Awake and Calm nausea: No Vomiting: No Anesthesia Complication: No Fluid Hydration Crystalloid volume administer (ml): 1,000 Total IV fluid infused: 1,000 Progress Note Anesthesia document: Postop Eval 1 completed: Yes
--- NOTE | 2024-05-16 13:47 | POSTOPAN2_ITS ---
Anesthesia Postop Eval I Sum Postop Eval Completion status Anesthesia document: Postop Eval 1 completed: Yes Anesthesia Postop Eval I Summary Anesthesia Postop Eval I Summary: Anesthesia Postop Eval I: Assessment Summary Airway patent Yes 05/16/24 13:17 TRANSFER MACHINE OPERATOR.MDOT Spontaneous unlabored Yes 05/16/24 13:17 TRANSFER MACHINE OPERATOR.MDOT respirations Mental status Awake,Calm 05/16/24 13:17 TRANSFER MACHINE OPERATOR.MDOT nausea No 05/16/24 13:17 TRANSFER MACHINE OPERATOR.MDOT Vomiting No 05/16/24 13:17 TRANSFER MACHINE OPERATOR.MDOT Anesthesia Postop Eval I: Fluid Summary Crystalloid volume administer 1,000 05/16/24 13:17 TRANSFER MACHINE OPERATOR.MDOT (ml) Colloids volume administered ( ml) Blood Product volume administered (ml) Total IV fluid infused 1,000 05/16/24 13:17 TRANSFER MACHINE OPERATOR.MDOT Anesthesia Postop Eval I: Summary Notes Anesthesia Complication No 05/16/24 13:17 TRANSFER MACHINE OPERATOR.MDOT Anesthesia Complication Comment: Post-operative progress note Anesthesia: Postop Eval II Evaluation Mental status: Awake Pain Level: 0 nausea: No Vomiting: No
--- NOTE | 2024-05-16 13:47 | PCM.POSTANE2 ---
Anesthesia Postop Eval I Sum Postop Eval Completion status Anesthesia document: Postop Eval 1 completed: Yes Anesthesia Postop Eval I Summary Anesthesia Postop Eval I Summary: Anesthesia Postop Eval I: Assessment Summary Airway patent Yes 05/16/24 13:17 DIELECTRIC TESTING MACHINE OPERATOR.MDOT Spontaneous unlabored Yes 05/16/24 13:17 DIELECTRIC TESTING MACHINE OPERATOR.MDOT respirations Mental status Awake,Calm 05/16/24 13:17 DIELECTRIC TESTING MACHINE OPERATOR.MDOT nausea No 05/16/24 13:17 DIELECTRIC TESTING MACHINE OPERATOR.MDOT Vomiting No 05/16/24 13:17 DIELECTRIC TESTING MACHINE OPERATOR.MDOT Anesthesia Postop Eval I: Fluid Summary Crystalloid volume administer 1,000 05/16/24 13:17 DIELECTRIC TESTING MACHINE OPERATOR.MDOT (ml) Colloids volume administered ( ml) Blood Product volume administered (ml) Total IV fluid infused 1,000 05/16/24 13:17 DIELECTRIC TESTING MACHINE OPERATOR.MDOT Anesthesia Postop Eval I: Summary Notes Anesthesia Complication No 05/16/24 13:17 DIELECTRIC TESTING MACHINE OPERATOR.MDOT Anesthesia Complication Comment: Post-operative progress note Anesthesia: Postop Eval II Evaluation Mental status: Awake Pain Level: 0 nausea: No Vomiting: No
== END 2024-05-16 14:51 | disposition home or self-care (01) ==
LOC: SDC 09:33 → AC 09:34
PROVIDERS: PCP Student in an Organized Health Care Education/Training Program; Referring Provider Urology; Visit Provider Urology
PROC: 0TBB8ZZ Excision of Bladder, Via Natural or Artificial Opening Endoscopic (ICD-10-PCS; CPT 52356; principal; 2024-05-16 11:40)
DX: N13.2 Hydronephrosis with renal and ureteral calculous obstruction (principal); C67.0 Malignant neoplasm of trigone of bladder; N13.1 Hydronephrosis with ureteral stricture, not elsewhere classified; D30.21 Benign neoplasm of right ureter; I10 Essential (primary) hypertension; E78.00 Pure hypercholesterolemia, unspecified; F17.210 Nicotine dependence, cigarettes, uncomplicated; Z79.899 Other long term (current) drug therapy
CPT/HCPCS: 52356; 52353; 52354; 52344; 00918; 76000; 82360; 88305; J7120; C1769; C2617; J2405

== ENCOUNTER 2024-08-29 15:31 | Inpatient (IN) | payer MEDICARE, SELFPAY ==
--- NOTE | 2024-08-19 13:14 | EKG12_ITS ---
Test Reason : PRE OP Blood Pressure : */* mmHG Vent. Rate : 71 BPM Atrial Rate : 71 BPM P-R Int : 190 ms QRS Dur : 80 ms QT Int : 392 ms P-R-T Axes : 71 -68 74 degrees QTcB Int : 425 ms Normal sinus rhythm Left axis deviation Septal infarct , age undetermined Abnormal ECG Confirmed by JOSHUA PORTILLO, ABBY ([id number]), editor sound LENI CAAL ([id number]) on 08/20/2024 8:24:42 AM Referred By: Tanmay Moon Confirmed By: ABBY LEWIS MD
[2024-08-19 13:34] LABS: Hematocrit 46.8 % (40-54); Hemoglobin 14.8 g/dL (13.0-16.5); Mean Corp Hgb Conc 31.6 g/dL (32-36); Mean Corpuscular Hgb 28.6 pg (27.0-32.0); Mean Corpuscular Volume 90.5 fL (80-94); Mean Platelet Vol. 9.1 fl (6.2-12.0); Platelet Count 245 K/mm3 (150-450); RBC Distribution Width CV 14.1 % (11.6-14.6); Red Blood Count 5.17 M/mm3 (4.6-6.2); White Blood Count 8.3 K/mm3 (4.4-11.0)
[2024-08-19 13:58] LABS: Anion Gap 3 (5-15); BUN 19 mg/dL (7-18); BUN/Creat Ratio 14.4 RATIO (10-20); Calcium,Total 9.1 mg/dL (8.5-10.1); Chloride 105 mmol/L (98-107); Creatinine, Serum 1.32 mg/dL (0.70-1.30); EST Glomerular Filtration Rate 56 mL/min (>60); Est Glom Filt Rate - Afr Amer 68 mL/min (>60); Glucose 111 mg/dL (74-106); Sodium Level 140 mmol/L (136-145)
[2024-08-29] VITALS (17 sets, daily range): BP systolic 93–145; BP diastolic 41–71; PULSE 58–87; RESP 14–18; TEMP 36.1–37; O2SAT 89–99; BMI 26.2
--- NOTE | 2024-08-29 10:17 | PRE.ANES_ITS ---
ASA Classification* ASA Classification ASA Classification: 2 Assessment & Plan Anesthesia* Anesthesia Assessment Anesthesia Assessment: Discussed sedation and/or anesthesia options, risks, benefits, and alternatives with patient/parents/legal guardian/POA. Questions invited. The patient/parents/legal guardian/POA seems to understand and agrees to proceed with anesthesia plan. Reviewed the physical assessment, medical history, allergy history and patient home medications list prior to surgery/procedure/anesthetic and documented any changes. Performed airway and anesthesia risk assessments. Anesthesia Type Anesthesia Type: General Anesthesia Focused Assessment* Temperature: 98.6 F Pulse Rate: 87 Blood Pressure: 145/71 Respiratory Rate: 17 Pulse Ox: 95 Airway Assessment Mouth opens: >3 cm Mallampati Score: II Focused Labs Anesthesia Preop lab: CBC WBC 8.3 K/mm3 (4.4-11.0) 08/19/24 13:07 RBC 5.17 M/mm3 (4.6-6.2) 08/19/24 13:07 Hgb 14.8 g/dL (13.0-16.5) 08/19/24 13:07 Hct 46.8 % (40-54) 08/19/24 13:07 Plt Count 245 K/mm3 (150-450) 08/19/24 13:07 CHEMISTRY Potassium 4.0 mmol/L (3.5-5.1) 08/19/24 13:07 Sodium 140 mmol/L (136-145) 08/19/24 13:07 BUN 19 mg/dL (7-18) H 08/19/24 13:07 Creatinine 1.32 mg/dL (0.70-1.30) H 08/19/24 13:07 Glucose 111 mg/dL (74-106) H 08/19/24 13:07 COAG Pre-Assessment Diagnosis/Proposed Procedure Planned Operative Procedure(s): LAP ROBOTIC URETERAL IMPLANTATION RIGHT Anesthesia History 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 When Was Last Pacemaker Check QUESTION #4 FULL TEXT: You/Your Family Experience fever (hyperthermia) with Anesthesia Last Oral Intake Last Oral intake: Last Oral Intake NPO since 06:30 08/29/24 10:07 Meds taken in AM with sips of Yes 08/29/24 10:07 water? Meds patient instructed to AMLODIPINE 08/29/24 10:07 take am of surgery PONV PONV - coke crane operator: PONV - coke crane operator Female No 08/15/24 09:02 HX of Motion Sickness Yes 08/15/24 09:02 HX of N/V After Surgery No 08/15/24 09:02 Non-Smoker No 08/15/24 09:02 Duration of Surgery greater Yes 08/15/24 09:02 than 60 minutes Number of Risk Factors 2 08/15/24 09:02 PONV Score Moderate Risk 08/15/24 09:02 Height & Weight Height & Weight: Anesthesia: Height & Weight Height 6 ft 1 in 08/29/24 10:07 Weight: 90 kg 08/29/24 10:07 Body Mass Index (BMI) 26.2 08/29/24 10:07 Respiratory Assessment Respiratory Assessment - coke crane operator: Respiratory Tract Infection Hx - coke crane operator Hx Respiratory Tract Infection No 08/15/24 09:02 STOP Sleep Apnea STOP Sleep Apnea - coke crane operator: STOP Sleep Apnea - coke crane operator Hx Hypertension Yes: CONTROLLED WITH MED 08/15/24 09:02 Hx Sleep Apnea No 08/15/24 09:02 CPAP BIPAP Do you snore loudly (louder No 08/15/24 09:02 than talking or can be heard Do you often feel tired/ No 08/15/24 09:02 fatigued/ sleepy during daytime? Has anyone observed you stop No 08/15/24 09:02 breathing during sleep? STOP Results Negative 08/15/24 09:02 QUESTION #5 FULL TEXT : Do you snore loudly (louder than talking or can be heard through closed doors)? 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 Specify any problems Hx of Preganancy in last 3 N/A 08/15/24 09:02 Months Nurse Filling Out Transfusion DSCHRIBER 08/15/24 09:02 & Questions: Date: 08/15/24 08/15/24 09:02 Time: 09:03 08/15/24 09:02 Patient unable to answer at this time (ie. confused, unrespo /Reproduction History /Reproductive History - coke crane operator: /Reproductive Hx- coke crane operator Hx Now No 08/15/24 09:02 Gestational Age (in weeks): EDC: Hx Hx Para Hx Section SAB No 08/15/24 09:02 Active Medications Active Medications: Current Medications Generic Name Dose Route Start Last Admin Trade Name Freq PRN Reason Stop Dose Admin Cefazolin Sodium 2 gm/ N/A 20 mls @ 400 mls/hr 08/29/24 10:45 IV 08/29/24 10:47 PREOP ONE Lactated Ringer's 1,000 mls @ 15 mls/hr 08/29/24 10:00 IV 09/03/24 23:19 .Q48H CASI Protocol Sodium Chloride 500 mls @ 15 mls/hr 08/29/24 10:15 IV 08/30/24 19:34 .[id number] CASI KVO PFSH Medical History Loss of hearing Cancer Shortness of breath on exertion Smoker Wears glasses Wears contact lenses Ambulates with cane Arthritis High cholesterol Injury of head and neck Syncope History of edema Hypertension History of irregular heartbeat Home Medications ?Medication ?Instructions ?Recorded ?Last Taken ?Type amlodipine 10 mg tablet 10 mg PO DAILY bp 06/25/23 08/29/24 History atorvastatin 20 mg tablet 20 mg PO QHS cholesterol 06/25/23 08/28/24 History hydrochlorothiazide 12.5 mg capsule 12.5 mg PO DAILY edema 06/25/23 08/28/24 History latanoprost 0.005 % eye drops 1 drp ophthalmic (eye) QHS glaucoma 06/25/23 08/29/24 History timolol maleate 0.5 % eye drops 1 drp ophthalmic (eye) .QAM 06/25/23 08/29/24 History glaucoma ibuprofen 600 mg tablet 600 mg PO Q6H PRN fever or pain 3 05/16/24 Unknown Rx days #20 tabs Allergy/AdvReac Type Severity Reaction Status Date / Time No Known Allergies Allergy Verified 08/29/24 10:05 Surgical History Hx of cystoscopy History of transurethral resection of bladder tumor (TURBT) History of dental surgery Hx of surgical procedure Hx of surgical procedure History of tonsillectomy and adenoidectomy Social History Smoking Status: Current every day smoker tobacco type: cigarettes Review of Systems (Anesthesia) ROS Narrative System reviewed and no additional complaints, except as documented.
[2024-08-29] MEDS: Lactated Ringers 1,000 ML 15 ML IV ×2 (10:30→14:30)
--- NOTE | 2024-08-29 10:45 | URE_PTH ---
PATIENT: BRANDYN MCMULLEN LOC: ICU U#:[id number] AGE/SX: 79/M ROOM: [place] [address] RE08/30/[address]: Dr. Tanmay Moon MD : 1945 BED: 1 DIS: 09/05/2024 SPEC #: [id number] RECD: 08/29/24 16:30 STATUS: GIANNI GALO #: [id number] AUDREY: 08/29/24 10:[address]: Tanmay Moon DEPT: SURGICAL PATHOLOGY RECD BY: Windy England ENTERED: 09/01/24 06:58 SP TYPE: URETER BX OTHR DR: Dr. Shira Mora MD Tissues: Ureter, NOS Procedures: Surgery Specimen Level IV HEADER OPERATION: Laparoscopic robotic ureteral implantation PRE-OP DIAGNOSIS: Right ureteral stricture TISSUE SUBMITTED: Right distal ureter MICROSCOPIC DIAGNOSIS Right distal ureter, biopsy: Minimal chronic inflammation. Ureter wall with polarizable material and associated foreign-body giant cells/histiocytes. No evidence of malignancy. AM. 09/02/2024 MICROSCOPIC DESCRIPTION Slides are reviewed. GROSS DESCRIPTION Received in fixative is one container labeled with the patient's name and designated Right distal ureter. The specimen consists of an elongated fragment of burris tissue measuring 1.5cm in length and 0.8cm in diameter. The specimen is inked, serially sectioned and totally submitted in one cassette. AM. 09/01/2024 TC:3 CPT:22089
--- NOTE | 2024-08-29 12:37 | PCM.HP.STD ---
HPI - General General Date of Admission: 08/29/24 Date of Service: 08/29/24 Chief Complaint: Ureteral stricture HPI Narrative BRANDYN MCMULLEN, is a 79 M who presents for a robotic right reimplantation of the ureter he had prior resection of a large tumor overlying the ureteral orifice after this happened then the ureter scarred down so I balloon dilated found the stone in the distal ureter. Then on cystoscopy is found to have stricture again closed off complete ureter could not get into the ureter so we will plan to do a resection of the entire ureter and then reimplantation of the right ureter into the bladder and a stent. [facility] Medical History Loss of hearing Cancer Shortness of breath on exertion Smoker Wears glasses Wears contact lenses Ambulates with cane Arthritis High cholesterol Injury of head and neck Syncope History of edema Hypertension History of irregular heartbeat Home Medications ?Medication ?Instructions ?Recorded ?Last Taken ?Type amlodipine 10 mg tablet 10 mg PO DAILY bp 06/25/23 08/29/24 History atorvastatin 20 mg tablet 20 mg PO QHS cholesterol 06/25/23 08/28/24 History hydrochlorothiazide 12.5 mg capsule 12.5 mg PO DAILY edema 06/25/23 08/28/24 History latanoprost 0.005 % eye drops 1 drp ophthalmic (eye) QHS glaucoma 06/25/23 08/29/24 History timolol maleate 0.5 % eye drops 1 drp ophthalmic (eye) .QAM 06/25/23 08/29/24 History glaucoma ibuprofen 600 mg tablet 600 mg PO Q6H PRN fever or pain 3 05/16/24 Unknown Rx days #20 tabs Allergy/AdvReac Type Severity Reaction Status Date / Time No Known Allergies Allergy Verified 08/29/24 10:05 Surgical History Hx of cystoscopy History of transurethral resection of bladder tumor (TURBT) History of dental surgery Hx of surgical procedure Hx of surgical procedure History of tonsillectomy and adenoidectomy Social History Smoking Status: Current every day smoker tobacco type: cigarettes Vital Signs Vital Signs Vital Signs: 08/29/24 10:07 08/29/24 10:07 08/29/24 10:17 Temperature 98.6 F 98.6 F Temperature Source Temporal Pulse Rate 87 87 Respiratory Rate 17 17 Respiratory Pattern Normal Blood Pressure 145/71 H 145/71 H Blood Pressure Mean 95 Blood Pressure Source Monitor Blood Pressure Position Semi-Fowlers Blood Pressure Location Left Arm Pulse Ox 95 95 Oxygen Delivery Method Room Air Weight Weight: 90 kg Body Mass Index (BMI) 26.2 Results Lab / Micro Data 08/19/24 13:07 08/19/24 13:07
[2024-08-29] MEDS: Cefazolin 2 GM in Syringe IV (13:15)
[2024-08-29] MEDS: Bupivacaine Mpf 0.5% 30 ML VIAL (15:00)
--- NOTE | 2024-08-29 15:33 | DCINST_ITS ---
Discharge Instructions Diet Discharge Diet: No restrictions DC O2, CPAP, BIPAP needs Additional Home O2 Discharge instructions: No Dressing / Incision Discharge Activity: Return to Normal Activity and May Not Drive (while taking narcotic pain medications.) May shower in (days): 1 Dressing / Incision Call your doctor if you observe: Fever of 101 or Higher Catheter: Matthews to leg bag and Mattehws to large bag Drain: [place] Follow Up Care Please Follow Up With: Tanmay Moon MD When: Call [phone] for an appointment Test Results: Test results from this visit will be discussed in further detail at your follow- up appointment, if applicable. Discharge Plan Admission Admit Date/Time: 08/29/24 09:53 Primary Reason for Your Visit: reimplant right ureter. Attending Provider: Tanmay Moon Primary Care Provider: Shira Mora Discharge Orders/Prescriptions Prescriptions: New oxycodone 5 mg tablet 5 mg PO Q6H PRN (Reason: pain) 3 Days Qty: 14 0RF ciprofloxacin HCl 500 mg tablet 500 mg PO BID Qty: 14 0RF docusate sodium [Colace] 100 mg capsule 100 mg PO BID Qty: 20 0RF Continued latanoprost 0.005 % drops 1 drp ophthalmic (eye) QHS Patient Comments: INSTILL ONE DROP IN EACH EYE AT BEDTIME timolol maleate 0.5 % drops 1 drp ophthalmic (eye) .QAM Patient Comments: INSTILL ONE DROP IN EACH EYE ONCE DAILY amlodipine 10 mg tablet 10 mg PO DAILY Patient Comments: TAKE 1 TABLET BY MOUTH EVERY DAY hydrochlorothiazide 12.5 mg capsule 12.5 mg PO DAILY Patient Comments: TAKE ONE CAPSULE BY MOUTH EVERY DAY atorvastatin 20 mg tablet 20 mg PO QHS Patient Comments: TAKE ONE TABLET BY MOUTH EVERY DAY AT BEDTIME ibuprofen 600 mg tablet 600 mg PO Q6H PRN (Reason: fever or pain) 3 Days Qty: 20 0RF Referrals / Follow Up: Tanmay Moon MD [Med Staff - Active Staff] - Shira Mora MD [Primary Care Provider] - Disposition Disposition (needs filled in before D/C Order can be placed): Home, Self Care
--- NOTE | 2024-08-29 15:34 | PCM.OPRPT ---
Operative Report (Standard) Operative Information Surgery/Procedure Performed: Robotic right ureteral neocystostomy, right ureter implant into the bladder Surgeon: Tanmay Moon Date of Procedure: 08/29/24 Procedure Start Time: 13:32 Procedure Stop Time: 15:34 Pre-Operative Diagnosis: Distal right ureteral stricture status post resection for bladder cancer Post-Operative Diagnosis: The same Select all DRAINS/GRAFTS/IMPLANTS that apply: Drains Drain details: 6 Finnish by 26 right stent, Matthews catheter Type of Anesthesia: General Estimated Blood Loss: 10 cc Specimen collected: Yes Description of specimen(s) removed: Distal right ureter Description of surgery: This is a 79-year-old male was found to have a large bladder tumor over the right ureteral orifice he underwent resection of this tumor was quite a deep tumor at the resected orifice but a stent in left the stent in for about a month remove the stent afterwards and follow-up was found to have a stricture forming the distal ureter I then took the surgery dilated the ureter lasered out a stone that was in the ureter left the stent in for 6 weeks pulled the stent out but then after this I looked back in and a restructure down the ureter so at this point I did not feel like another balloon dilation and restenting would be useful so I recommended we do a reimplantation of the ureter and cut out the diseased segment. Of note the tumor look like it was right over the right ureteral orifice originally resected last cystoscopy showed no tumors and the bladder was clear. Taken back to the operating room after smooth induction of anesthesia he was placed in dorsolithotomy position the urethra penis and scrotum and abdomen was shaved prepped and draped in usual fashion, I then made an incision in the above the umbilicus put a trocar into the abdomen insufflated the apnea with CO2 gas and then docked put on my trocars air seal port and then we docked the robot patient was put in steep Trendelenburg I then reflected the colon off the lateral wall and then I was able to retract the colon and the small intestine out of the pelvis. I then identified the ureter below the peritoneum on the right side opened up the peritoneum of the ureter and then traced the ureter all the way to the bladder it was a dilated ureter when I got to the to the bladder and ureter junction we could see that the ureter narrow down I then cut above the ureter opening up into the bladder and then cut the ureter off the bladder and then he had open Inside to the bladder I put a stay stitch on the top of the bladder and held this with retraction of maintain the opening into the bladder so I could see it I then cut out the distal part of the ureter that was diseased and scarred down we sent this off for tissue I then spatulated the end of the ureter. I then placed 2 stay stitches between the spatulated end of the ureter and the bladder. And then once that was in then put a wire through the ureter and then over the wire put a stent it was a 6 Finnish by 26 cm stent and then pulled the wire and the stent coiled and then I put the coil into the end of the bladder I then went around and anastomosed the edges of the ureter to the bladder circumferentially using 4-0 V-Loc stitch to complete the reimplantation of the ureter into the bladder basically ureter reimplanted the ureter right next to the original orifice of the bladder. Once this was done then I closed the peritoneum over the ureter and then we left a drain and underneath the peritoneum to make sure there is no urine leak. We then removed undocked the robot we used 08 mm trocar send no fascia need to be closed desufflated the abdomen but the drain to suction flushed the catheter the catheter was draining well patient's anesthetic was reversed and we can successfully reimplanted the right ureter into the bladder with a stent in place he will go home with a Matthews catheter he will stay in the hospital overnight for observation and then tomorrow go home with a catheter for 2 weeks to let the new anastomosis heal then to have the catheter removed and then 6 weeks later to have the stent removed. Surgical Findings: Atretic segment of distal right ureter cut open resected and new ureter implanted into the bladder base Card Seller grinder needle tip: Yes Endband Sizer: Hugo Byrd Tasks completed by customer assistance representative: Opening, Closing, Opening & closing, Harvesting grafts, Dissecting tissue, Removing tissue, Implanting device, Altering tissue, Insert Trochanter, Hemostasis: Clamp, Hemostasis: Tie, Hemostasis: Electrocautery, Trocar, Retracting and Other Complications Complications: No Admit VTE Documentation VTE Present on Admission: Yes VTE Mechan Device Prophylaxis: SCD's
--- NOTE | 2024-08-29 16:06 | PCM.POST.ANE ---
Anesthesia: Postop Eval I Current Vital Signs Temperature: 97 F Pulse Rate: 65 Blood Pressure: 113/57 Respiratory Rate: 16 Pulse Ox: 89 Oxygen Delivery Method: Room Air Assessment Airway patent: Yes Spontaneous unlabored respirations: Yes Mental status: Awake and Apprehensive nausea: No Vomiting: No Anesthesia Complication: No Fluid Hydration Crystalloid volume administer (ml): 1,000 Total IV fluid infused: 1,000 Progress Note Anesthesia document: Postop Eval 1 completed: Yes
--- NOTE | 2024-08-29 16:08 | PCM.POSTANE2 ---
Anesthesia Postop Eval I Sum Postop Eval Completion status Anesthesia document: Postop Eval 1 completed: Yes Anesthesia Postop Eval I Summary Anesthesia Postop Eval I Summary: Anesthesia Postop Eval I: Assessment Summary Airway patent Yes 08/29/24 16:08 Spontaneous unlabored Yes 08/29/24 16:08 respirations Mental status Awake,Apprehensive 08/29/24 16:08 nausea No 08/29/24 16:08 Vomiting No 08/29/24 16:08 Anesthesia Postop Eval I: Fluid Summary Crystalloid volume administer 1,000 08/29/24 16:08 (ml) Colloids volume administered ( ml) Blood Product volume administered (ml) Total IV fluid infused 1,000 08/29/24 16:08 Anesthesia Postop Eval I: Summary Notes Anesthesia Complication No 08/29/24 16:08 Anesthesia Complication Comment: Post-operative progress note Anesthesia: Postop Eval II Evaluation Mental status: Awake and Apprehensive Pain Level: 3 nausea: No Vomiting: No
[2024-08-29] MEDS: Ibuprofen 600 MG Tablet PO (18:21)
[2024-08-29] MEDS: Atorvastatin Calcium 20 MG Tablet PO (20:29)
[2024-08-29] MEDS: Latanoprost 0.005% 1 Bottle 1 DRP OPHTHALMIC (20:29)
[2024-08-29] MEDS: Ciprofloxacin 500 MG Tablet PO (20:29)
[2024-08-30] MEDS: Ibuprofen 600 MG Tablet PO (00:49)
[2024-08-30 01:02] VITALS: BP 121/66; PULSE 62; RESP 15; TEMP 36.6; O2SAT 94
[2024-08-30 05:15] VITALS: BP 115/65; PULSE 60; RESP 14; TEMP 36.6; O2SAT 93
[2024-08-30 08:07] VITALS: O2SAT 94
--- NOTE | 2024-08-30 08:30 | PCM.PN.GU ---
Subjective Subjective s/p robotic reimplantation of right ureter joycelyn out minimal doing well probably home tomorrow with pinto likely will dc JOYCELYN before discharge Objective Data Objective Data Vital Signs: Vital Signs Temp Pulse Resp BP Pulse Ox O2 Del Method O2 Flow Rate 97.8 F 60 14 115/65 94 Nasal Cannula 2 08/30/24 05:15 08/30/24 05:15 08/30/24 05:15 08/30/24 05:15 08/30/24 08:07 08/30/24 08:07 08/30/24 08:07 Oxygen Flow Rate (L/min) 2 Oxygen Delivery Method Nasal Cannula Weight: 90 kg Body Mass Index (BMI) 26.2 Intake & Output: Intake and Output for Last 24 Hours 08/28/24 08/29/24 08/30/24 23:59 23:59 23:59 Intake Total 1020 / 1020 100 / 100 Output Total 350 / 350 200 / 200 Balance 670 / 670 -100 / -100 Lab / Micro Data 08/19/24 13:07 08/19/24 13:07
[2024-08-30 08:59] VITALS: BP 121/55; PULSE 61; RESP 16; RESP 18; TEMP 37.2; O2SAT 92
[2024-08-30] MEDS: Timolol 0.5% 5ML OPTH.BTL 1 DRP EACH EYE (09:14)
[2024-08-30] MEDS: amLODIPine 10 MG Tablet PO (09:16)
[2024-08-30] MEDS: hydroCHLOROthiazide 12.5mg 12.5 MG PO (09:16)
[2024-08-30] MEDS: Ciprofloxacin 500 MG Tablet PO ×2 (09:16→21:09)
--- NOTE | 2024-08-30 09:48 | CASEMGMT ---
SHANTELLE CM to pt room at this time to discuss DC planning. Pt states that he lives with his and that he is independent. Pt states that he uses a cane to assist ambulation. Pt states that he wishes to return home with his at time of DC and refuses the need for HH or OP Tx. Pt plans to go home with a Matthews and f/u with urology x2 weeks for removal. Pt reassured that nursing will provide education on how to care for this at home prior to DC. Pt is also requiring additional oxygen and may qualify for home oxygen. A verbal list of local in-network DME companies provided to the pt at this time. Prefers [employer]. Pt denies further needs at this time.
--- NOTE | 2024-08-30 11:49 | CASEMGMT ---
Met with pt to complete SIFUENTES form. SIFUENTES form explained to pt at this time who voiced understanding and signed form. Original form placed in pt?s chart and copy provided to the pt. Herson Delatorre RN CM
[2024-08-30 14:58] VITALS: BP 105/55; PULSE 58; RESP 18; TEMP 37.2; O2SAT 92
[2024-08-30 20:52] VITALS: BP 136/59; PULSE 65; RESP 18; TEMP 36.5; O2SAT 92
[2024-08-31 03:16] VITALS: BP 125/68; PULSE 61; RESP 18; TEMP 36.5; O2SAT 92
[2024-08-31] MEDS: Ondansetron 4 MG/2 ML Vial IV (03:26)
[2024-08-31] MEDS: 0.9% Saline Lock 10 ML Syringe IV (03:26)
[2024-08-31 08:00] VITALS: O2SAT 92
[2024-08-31 08:44] VITALS: BP 124/68; PULSE 79; RESP 18; TEMP 37.4; O2SAT 92
[2024-08-31] MEDS: Timolol 0.5% 5ML OPTH.BTL 1 DRP EACH EYE (08:57)
[2024-08-31] MEDS: hydroCHLOROthiazide 12.5mg 12.5 MG PO (08:58)
[2024-08-31] MEDS: amLODIPine 10 MG Tablet PO (08:58)
[2024-08-31] MEDS: Ciprofloxacin 500 MG Tablet PO (08:58)
--- NOTE | 2024-08-31 09:42 | PCM.PN.GU ---
Subjective Subjective Postop day #2 status post robotic reimplantation of ureter to the bladder, Still not ready to go home yet abdomen is more distended has not had any gas or bowel movements will give him a Dulcolax suppository to stimulate the bowels, he needs to be out of bed need to try to ambulate. Will get a chest x-ray to rule out pneumonia he has a low-grade fever of 99.3, will check a CBC and a BMP. YOHAN output has increased this may or may not be a leak we will check a urine creatinine on the YOHAN output. Diet as tolerated ambulate as tolerated switch Cipro to Levaquin chest x-ray today. Objective Data Objective Data Vital Signs: Vital Signs Temp Pulse Resp BP Pulse Ox O2 Del Method O2 Flow Rate 99.3 F H 79 18 124/68 H 92 Nasal Cannula 3 08/31/24 08:44 08/31/24 08:44 08/31/24 08:44 08/31/24 08:44 08/31/24 08:44 08/31/24 08:44 08/31/24 08:44 Oxygen Flow Rate (L/min) 3 Oxygen Delivery Method Nasal Cannula Weight: 90 kg Body Mass Index (BMI) 26.2 Intake & Output: Intake and Output for Last 24 Hours 08/29/24 08/30/24 08/31/24 23:59 23:59 23:59 Intake Total 1020 / 1020 300 / 300 1083.25 / 1083.25 Output Total 350 / 350 565 / 565 755 / 755 Balance 670 / 670 -265 / -265 328.25 / 328.25 Lab / Micro Data 08/19/24 13:07 08/19/24 13:07
--- NOTE | 2024-08-31 09:50 | RAD_ITS ---
EXAM: XR CHEST, 2 VIEWS CLINICAL INDICATION: cough on O2 TECHNIQUE: Frontal and lateral views of the chest. COMPARISON: No relevant prior studies available. FINDINGS: LUNGS AND PLEURAL SPACES: Small left pleural effusion with pneumonia or atelectasis of the left lower lobe. No pneumothorax. HEART: Normal heart size. MEDIASTINUM: No mediastinal or hilar mass. BONES/JOINTS: No acute abnormality. RAD/Chest PA and Lateral IMPRESSION: Small left pleural effusion with pneumonia or atelectasis of the left lower lobe. Electronically Signed: Kris Castillo MD at 10:58 EST ,
[2024-08-31 10:24] LABS: Hematocrit 46.1 % (40-54); Hemoglobin 15.3 g/dL (13.0-16.5); Mean Corp Hgb Conc 33.2 g/dL (32-36); Mean Corpuscular Hgb 29.7 pg (27.0-32.0); Mean Corpuscular Volume 89.3 fL (80-94); Mean Platelet Vol. 9.2 fl (6.2-12.0); Platelet Count 269 K/mm3 (150-450); RBC Distribution Width CV 14.4 % (11.6-14.6); RBC Distribution Width SD 46.8 fl (35.1-43.9); Red Blood Count 5.16 M/mm3 (4.6-6.2); White Blood Count 11.5 K/mm3 (4.4-11.0)
[2024-08-31 10:31] LABS: Anion Gap 8 (5-15); BUN 31 mg/dL (7-18); BUN/Creat Ratio 17.5 RATIO (10-20); Calcium,Total 8.9 mg/dL (8.5-10.1); Chloride 105 mmol/L (98-107); Creatinine, Serum 1.77 mg/dL (0.70-1.30); EST Glomerular Filtration Rate 40 mL/min (>60); Est Glom Filt Rate - Afr Amer 48 mL/min (>60); Glucose 141 mg/dL (74-106); Potassium 3.6 mmol/L (3.5-5.1); Sodium Level 138 mmol/L (136-145)
[2024-08-31] MEDS: Bisacodyl 10 MG Suppository RC (11:09)
[2024-08-31] MEDS: levoFLOXacin 500 MG Tablet PO (11:09)
[2024-08-31 11:56] LABS: Creatinine, Urine (random) < 13.00 mg/dL (NO RANGE EST.)
[2024-08-31 14:00] VITALS: BP 124/65; PULSE 69; RESP 18; TEMP 37.2; O2SAT 92
[2024-08-31 20:00] VITALS: BP 137/108; PULSE 67; RESP 18; TEMP 36.6; O2SAT 93
[2024-08-31] MEDS: Latanoprost 0.005% 1 Bottle 1 DRP OPHTHALMIC (21:24)
[2024-08-31] MEDS: Atorvastatin Calcium 20 MG Tablet PO (21:24)
[2024-09-01 03:23] VITALS: BP 131/58; PULSE 73; RESP 18; TEMP 36.6; O2SAT 92
[2024-09-01] MEDS: levoFLOXacin 500 MG Tablet PO (05:26)
[2024-09-01 07:41] VITALS: O2SAT 93
--- NOTE | 2024-09-01 07:46 | PCM.PN.GU ---
Subjective Subjective 79-year-old male status post reimplantation of the right ureter postop course was about a little bit britni he has a slight ileus starting to pass gas and have bowel movement this morning will give another Dulcolax suppository. He has required oxygen on x-ray it looks like he is getting a pneumonia in the left lower lung base he needs to do incentive spirometer be out of bed and ambulate. Will continue with Levaquin for the pneumonia. YOHAN output is high but it is just peritoneal fluid it was negative for urine creatinine was low. So he does not have a urine leak. Matthews catheter is in place good urine output. Not ready for discharge yet Objective Data Objective Data Vital Signs: Vital Signs Temp Pulse Resp BP Pulse Ox O2 Del Method O2 Flow Rate 97.9 F 73 18 131/58 H 93 Nasal Cannula 3 09/01/24 03:23 09/01/24 03:23 09/01/24 03:23 09/01/24 03:23 09/01/24 07:41 09/01/24 07:41 09/01/24 07:41 Oxygen Flow Rate (L/min) 3 Oxygen Delivery Method Nasal Cannula Weight: 90 kg Body Mass Index (BMI) 26.2 Intake & Output: Intake and Output for Last 24 Hours 08/30/24 08/31/24 09/01/24 23:59 23:59 23:59 Intake Total 300 / 300 1283.25 / 1283.25 600 / 600 Output Total 565 / 565 1530 / 1530 1030 / 1030 Balance -265 / -265 -246.75 / -246.75 -430 / -430 Lab / Micro Data 08/31/24 10:05 08/31/24 10:05 Labs: Laboratory Results - last 24 hr 08/31/24 09:45: Urine Creatinine < 13.00 08/31/24 10:05: WBC 11.5 H, RBC 5.16, Hgb 15.3, Hct 46.1, MCV 89.3, MCH 29.7, MCHC 33.2, RDW Std Deviation 46.8 H, RDW Coeff of [place] 14.4, Plt Count 269, MPV 9.2, Sodium 138, Potassium 3.6, Chloride 105, Carbon Dioxide 24.0, Anion Gap 8, BUN 31 H, Creatinine 1.77 H, Estim Creat Clear Calc 39.50, Est GFR (MDRD) Af Amer 48 L, Est GFR (MDRD) Non-Af 40 L, BUN/Creatinine Ratio 17.5, Glucose 141 H, Calcium 8.9 Radiography Diagnostic Testing: Radiology Impression Chest X-Ray 08/31/24 09:50 IMPRESSION: Small left pleural effusion with pneumonia or atelectasis of the left lower lobe. Electronically Signed: Kris Castillo MD at 10:58 EST ,
[2024-09-01 07:50] VITALS: BP 138/68; PULSE 72; RESP 18; TEMP 36.8; O2SAT 92
[2024-09-01] MEDS: hydroCHLOROthiazide 12.5mg 12.5 MG PO (07:55)
[2024-09-01] MEDS: amLODIPine 10 MG Tablet PO (07:55)
[2024-09-01] MEDS: Timolol 0.5% 5ML OPTH.BTL 1 DRP EACH EYE (07:55)
[2024-09-01] MEDS: Bisacodyl 10 MG Suppository RC (13:13)
[2024-09-01 14:40] VITALS: BP 146/74; PULSE 65; RESP 18; TEMP 36.9; O2SAT 93
[2024-09-01 22:01] VITALS: BP 139/82; PULSE 65; RESP 18; TEMP 36.5; O2SAT 96
[2024-09-01] MEDS: Latanoprost 0.005% 1 Bottle 1 DRP OPHTHALMIC (22:11)
[2024-09-01] MEDS: Atorvastatin Calcium 20 MG Tablet PO (22:12)
[2024-09-02] VITALS (10 sets, daily range): BP systolic 105–134; BP diastolic 54–68; PULSE 70–83; RESP 18–22; TEMP 36.6–36.9; O2SAT 87–95
[2024-09-02] MEDS: levoFLOXacin 500 MG Tablet PO (05:32)
--- NOTE | 2024-09-02 07:41 | PCM.PN.GU ---
Subjective Subjective s/p reimplant still need 02 to keep sats up can't discharge yet. will consult hospitalist for pneumonia Objective Data Objective Data Vital Signs: Vital Signs Temp Pulse Resp BP Pulse Ox O2 Del Method O2 Flow Rate 98 F 83 18 133/66 H 92 Nasal Cannula 3 09/02/24 05:25 09/02/24 05:25 09/02/24 05:25 09/02/24 05:25 09/02/24 05:25 09/02/24 05:30 09/02/24 05:30 Oxygen Flow Rate (L/min) 3 Oxygen Delivery Method Nasal Cannula Weight: 90 kg Body Mass Index (BMI) 26.2 Intake & Output: Intake and Output for Last 24 Hours 08/31/24 09/01/24 09/02/24 23:59 23:59 23:59 Intake Total 1283.25 / 1283.25 1000 / 1000 300 / 300 Output Total 1530 / 1530 1900 / 1900 380 / 380 Balance -246.75 / -246.75 -900 / -900 -80 / -80 Lab / Micro Data 08/31/24 10:05 08/31/24 10:05
[2024-09-02] MEDS: amLODIPine 10 MG Tablet PO (07:44)
[2024-09-02] MEDS: Timolol 0.5% 5ML OPTH.BTL 1 DRP EACH EYE (07:44)
[2024-09-02] MEDS: hydroCHLOROthiazide 12.5mg 12.5 MG PO (07:44)
--- NOTE | 2024-09-02 09:33 | RAD_ITS ---
EXAM: XR CHEST, 2 VIEWS CLINICAL INDICATION: atelectasis vs pneumonia TECHNIQUE: Frontal and lateral views of the chest. COMPARISON: XR Chest dated 08/31/2024 FINDINGS: LUNGS AND PLEURAL SPACES: Improving bibasilar atelectasis. Persistent small bilateral pleural effusions. HEART: Normal heart size. MEDIASTINUM: No mediastinal or hilar mass. BONES/JOINTS: No acute abnormality. RAD/Chest PA and Lateral IMPRESSION: 1. Improving bibasilar atelectasis. 2. Persistent small bilateral pleural effusions. Electronically Signed: Kris Castillo MD at 10:30 EST ,
[2024-09-02 10:29] LABS: Absolute Lymphocyte Count 1.29 X10^3/uL (0.83-4.51); Absolute Neutrophil Count 7.1 X10^3/uL (2.0-7.7); Basophil# 0.01 X10^3/uL; Basophil% 0.1 % (0-1); Eosinophil# 0.02 X10^3/uL; Eosinophils% 0.2 % (0-5); Hematocrit 48.1 % (40-54); Hemoglobin 15.7 g/dL (13.0-16.5); Lymphocyte # 1.29 X10^3/ul (0.83-4.51); Lymphocyte % 14.3 % (19-41); Mean Corp Hgb Conc 32.6 g/dL (32-36); Mean Corpuscular Hgb 28.6 pg (27.0-32.0); Mean Corpuscular Volume 87.8 fL (80-94); Mean Platelet Vol. 9.3 fl (6.2-12.0); Monocyte# 0.59 X10^3/uL; Monocyte% 6.5 % (0-10); NRBC Flagged by Analyzer 0 % (0-5); Neutrophil # 7.08 X10^3/uL (2.7-7.7); Neutrophil % 78.6 % (47-70); Platelet Count 278 K/mm3 (150-450); RBC Distribution Width CV 14.4 % (11.6-14.6); RBC Distribution Width SD 46.5 fl (35.1-43.9); Red Blood Count 5.48 M/mm3 (4.6-6.2)
[2024-09-02 10:30] LABS: Anion Gap 8 (5-15); BUN 40 mg/dL (7-18); BUN/Creat Ratio 23.5 RATIO (10-20); Calcium,Total 8.9 mg/dL (8.5-10.1); Chloride 103 mmol/L (98-107); EST Glomerular Filtration Rate 42 mL/min (>60); Est Glom Filt Rate - Afr Amer 51 mL/min (>60); Estimated Creatinine Clearance 41.13 ml/min; Glucose 131 mg/dL (74-106); Potassium 3.4 mmol/L (3.5-5.1); Sodium Level 137 mmol/L (136-145)
--- NOTE | 2024-09-02 11:43 | CASEMGMT ---
SHANTELLE CM into pt room, pt lying in bed with oxygen on in no distress. Pt states he has been using his IS and pickle, encouraged to continue to do so. Pt states he is planning to ambulate in the halls and be up in the chair for meals. Discussed dc plan after hospitalization, pt states he can't make any decisions at this time. Will cont to follow pt for HHC or other needs. Hospitalist c/s. Pt denies further needs.
--- NOTE | 2024-09-02 13:50 | CASEMGMT ---
Social Work SW spoke w/pt, he confirmed his is healthcare POA. SW asked pt as able to bring in the documents. Pt states understanding. STEVE Camara
[2024-09-02] MEDS: Ipratropium/Albuterol Sulfate 3 ML AMPUL.NEB INHALATION ×2 (14:18→19:09)
--- NOTE | 2024-09-02 16:01 | PN.HOSP_ITS ---
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 Patient has a long history of smoking, he has not been diagnosed with any pulmonary issues such as asthma or COPD according to the patient. Patient stated that before his surgery as an outpatient, he had a cough with some green sputum production, this has since resolved. Patient is currently on 4 L of oxygen with a pulse ox of 95%. On examination, patient does not appear to be in any respiratory distress at rest, auscultation of the lungs reveals diffuse scattered expiratory wheezes bilaterally-more so at the right lung base. Patient had a previous chest x-ray which was read out as showing a possible pneumonia, this was done on 08/31/2024. I had the chest x-ray repeated today and it showed resolving atelectasis and persistent small bilateral pleural effusions but no evidence of pneumonia. Patient denies any chills or fever. Patient states that he has been vaccinated for RSV, influenza, and COVID this year. Objective Data Objective Data Vital Signs: Vital Signs Temp Pulse Resp BP Pulse Ox O2 Del Method O2 Flow Rate 98.4 F 72 18 105/61 95 Nasal Cannula 4 09/02/24 14:35 09/02/24 14:35 09/02/24 14:35 09/02/24 14:35 09/02/24 14:35 09/02/24 14:35 09/02/24 14:35 Oxygen Flow Rate (L/min) 4 Oxygen Delivery Method Nasal Cannula Weight: 90 kg Body Mass Index (BMI) 26.2 Intake & Output: Intake and Output for Last 24 Hours 08/31/24 09/01/24 09/02/24 23:59 23:59 23:59 Intake Total 1283.25 / 1283.25 1000 / 1000 300 / 300 Output Total 1530 / 1530 1900 / 1900 740 / 740 Balance -246.75 / -246.75 -900 / -900 -440 / -440 Lab / Micro Data 09/02/24 10:00 09/02/24 10:00 Labs: Laboratory Results - last 24 hr 09/02/24 10:00: WBC 9.0, RBC 5.48, Hgb 15.7, Hct 48.1, MCV 87.8, MCH 28.6, MCHC 32.6, RDW Std Deviation 46.5 H, RDW Coeff of [place] 14.4, Plt Count 278, MPV 9.3, Immature Gran % (Auto) 0.300, Neut % (Auto) 78.6 H, Lymph % (Auto) 14.3 L, [place] % (Auto) 6.5, Eos % (Auto) 0.2, Baso % (Auto) 0.1, Absolute Neuts (auto) 7.1, Absolute Lymphs (auto) 1.29, Nucleated RBC % 0, Sodium 137, Potassium 3.4 L, Chloride 103, Carbon Dioxide 26.0, Anion Gap 8, BUN 40 H, Creatinine 1.70 H, Estim Creat Clear Calc 41.13, Est GFR (MDRD) Af Amer 51 L, Est GFR (MDRD) Non-Af 42 L, BUN/Creatinine Ratio 23.5 H, Glucose 131 H, Calcium 8.9 Radiography Diagnostic Testing: Radiology Impression Chest X-Ray 09/02/24 09:33 IMPRESSION: 1. Improving bibasilar atelectasis. 2. Persistent small bilateral pleural effusions. Electronically Signed: Kris Castillo MD at 10:30 EST Reading Location ID and State: [address] [place] [address] Tel , Service support , Physical Exam Const alert, oriented x3, no apparent distress and average body habitus General Appearance: cooperative, well kempt and well developed Orientation / Consciousness: awake, oriented to person, oriented to place and oriented to time HEENT normocephalic, head/scalp atraumatic and moist oral mucous membranes Eyes PERRL, EOMs intact bilaterally and conjunctivae normal Neck supple, no JVD, thyroid normal and no carotid bruits General: trachea midline Resp normal respiratory effort Auscultation: wheezes expiratory wheezes and throughout; Negative for rales or rhonchi Cardio regular rate, regular rhythm, S1 normal heart sound, S2 normal heart sound, no murmurs, no rub and no gallops GI normal to inspection, nondistended, normoactive bowel sounds, soft to palpation, non-tender and non-distended Extremity no clubbing, cyanosis or edema Skin no rashes or lesions noted General Skin Exam: no breakdown Neuro oriented x3, CN's II-XII intact bilaterally, moves all extremities, no focal motor deficits and no sensory deficits noted Sensorium / Orientation: awake and alert Speech: speech normal Psych affect normal Assessment & Plan Assessment/Plan (1) Bladder tumor: PLAN: Plan 1.Hypoxia-likely secondary to atelectasis and bronchospasm, patient was placed on DuoNeb aerosol treatments, a respiratory panel was ordered which has not resulted at the time of this dictation. Patient most likely has an element of chronic obstructive pulmonary disease due to his long smoking history, he may need to go home with supplemental oxygen for short period of time. Patient is on Levaquin currently. I do not feel the patient has pneumonia. It would not be improper to recommend a short course of oral antibiotics such as Levaquin for bronchitis-5 to 7 days. #2 essential hypertension-patient is on hydrochlorothiazide and amlodipine #3 hyperlipidemia-patient is on atorvastatin Total clinical time spent by myself addressing the patient's medical issues, reviewing his data, and collaborating with patient's care team: 35 minutes Charges/Coding Visit Charges Inpatient E&M: 25030 Subs Hosp L2
[2024-09-02] MEDS: Atorvastatin Calcium 20 MG Tablet PO (21:27)
[2024-09-02] MEDS: Latanoprost 0.005% 1 Bottle 1 DRP OPHTHALMIC (21:28)
[2024-09-03] VITALS (12 sets, daily range): BP systolic 93–159; BP diastolic 57–85; PULSE 71–101; RESP 16–19; TEMP 36.6–36.9; O2SAT 84–93
--- NOTE | 2024-09-03 07:24 | DS.PCM_ITS ---
Providers Date of Admission: 08/30/24 Date of Discharge: 09/03/24 Primary Care Physician: Dr. Shira Mora MD Consultations 09/02/24 07:42 Consult: Hospitalist Routine Consulting Provider: Yakov Koo Reason for Consult: pnuemonia EMERGENT Consult: No MD Notified: Yes Date Notified: 09/02/24 Time Notified: 08:20 Method of Notification: Verbal Reason For Visit: REIMPLANT RIGHT URETER Diagnosis Discharge Diagnosis (1) Bladder tumor: Status: Acute Code(s): D49.4 - Neoplasm of unspecified behavior of bladder Medications at Discharge Home Medications amlodipine 10 mg tablet 10 mg PO DAILY bp 06/25/23 atorvastatin 20 mg tablet 20 mg PO QHS cholesterol 06/25/23 hydrochlorothiazide 12.5 mg capsule 12.5 mg PO DAILY edema 06/25/23 latanoprost 0.005 % eye drops 1 drp ophthalmic (eye) QHS glaucoma 06/25/23 timolol maleate 0.5 % eye drops 1 drp ophthalmic (eye) .QAM glaucoma 06/25/23 ibuprofen 600 mg tablet 600 mg PO Q6H PRN fever or pain 3 days #20 tabs 05/16/24 ciprofloxacin HCl 500 mg tablet 500 mg PO BID #14 tabs 08/29/24 docusate sodium 100 mg capsule (Colace) 100 mg PO BID #20 caps 08/29/24 oxycodone 5 mg tablet 5 mg PO Q6H PRN pain 3 days #14 tabs 08/29/24 Hospital Course Operations None (Robotic right ureteral reimplantation) Summary of Care Provided Minutes Spent on Discharge: 35 Hospital Course: 79-year-old male with a history of bladder cancer had a resection of the tumor over the right ureteral orifice the right ureter was scarred down and I did a balloon dilation and stent placement this was removed and then on follow-up again the ureteral orifice scarred down again so today he was taken to surgery for a right robotic reimplantation. Postop course was extended because he required oxygen chest x-ray was done there is question of pneumonia after proper treatment he still did not wean off oxygen so I consulted medical service they think he has an underlying COPD that is causing his oxygen dependence so he will go home with oxygen today. Follow-up in 10 days to remove the pinto Physical Exam Const alert and oriented x3 General Appearance: cooperative HEENT normocephalic and head/scalp atraumatic Eyes PERRL and EOMs intact bilaterally Neck supple, no JVD and no carotid bruits Resp normal respiratory effort, normal air movement and clear to auscultation bilaterally Cardio regular rate and no murmurs GI normal to inspection, nondistended, normoactive bowel sounds and soft to palpation Extremity normal capillary refill General Extremity: no tenderness to palpation of joints or extremities; Negative for edema Skin no rashes or lesions noted and no wounds General Skin Exam: no breakdown Neuro CN's II-XII intact bilaterally Psych affect normal Appearance: appropriate Weight / BMI Weight Weight: 90 kg Body Mass Index (BMI) 26.2 ABG / Lab / Microbiology Data 09/02/24 10:00 09/02/24 10:00 Laboratory: Laboratory Results - last 24 hr 09/02/24 10:00: WBC 9.0, RBC 5.48, Hgb 15.7, Hct 48.1, MCV 87.8, MCH 28.6, MCHC 32.6, RDW Std Deviation 46.5 H, RDW Coeff of [place] 14.4, Plt Count 278, MPV 9.3, Immature Gran % (Auto) 0.300, Neut % (Auto) 78.6 H, Lymph % (Auto) 14.3 L, [place] % (Auto) 6.5, Eos % (Auto) 0.2, Baso % (Auto) 0.1, Absolute Neuts (auto) 7.1, Absolute Lymphs (auto) 1.29, Nucleated RBC % 0, Sodium 137, Potassium 3.4 L, Chloride 103, Carbon Dioxide 26.0, Anion Gap 8, BUN 40 H, Creatinine 1.70 H, Estim Creat Clear Calc 41.13, Est GFR (MDRD) Af Amer 51 L, Est GFR (MDRD) Non-Af 42 L, BUN/Creatinine Ratio 23.5 H, Glucose 131 H, Calcium 8.9 Microbiology: Microbiology 09/02/24 13:52 Mucosa - Nose Respiratory Panel (PCR) - Final Radiography Diagnostic Testing: Radiology Impression Chest X-Ray 09/02/24 09:33 IMPRESSION: 1. Improving bibasilar atelectasis. 2. Persistent small bilateral pleural effusions. Electronically Signed: Kris Castillo MD at 10:30 EST , D/C Instructions Discharge Diet: No restrictions May shower in (days): 1 Call your doctor if you observe: Fever of 101 or Higher Catheter: Pinto to leg bag and [place] to large bag Drain: [place] DC O2, CPAP, BIPAP Needs Additional Home O2 Discharge instructions: Yes Type of respiratory needs?: Oxygen Oxygen frequency: Continuous Continuous oxygen liters per minute: 2 DC home with Oxygen: Yes Home O2 MD Review: I have reviewed the oxygen testing, and the patient qualifies for home oxygen equipment and portability. The patient is mobile in the home and the community. Please Follow Up With: Tanmay Moon MD When: Call [phone] for an appointment Meaningful Use Info Meaningful Use Meaningful Use Diagnoses (Choose all that apply): None applicable Ischemic Stroke Statin Dosing Therapy Reference: STATIN DOSE THERAPY REFERENCE: * Patients > 75 years receive moderate or high dose statin therapy. * Patients 75 years or YOUNGER should receive HIGH intensity statin dose unless contraindicated. You will be required to document reason for non-treatment if statin daily dose does not meet guidelines. HIGH DOSE STATIN THERAPY DAILY Atorvastatin > than or = to 40 mg Rosuvastatin > than or = to 20 mg Amlodipine + Atorvastatin > than or = to 2.5/40 mg Ezetimibe + Simvastatin 10/80 mg Simvastatin 80mg Discharge Plan Admission Admit Date/Time: 08/30/24 11:39 Primary Reason for Your Visit: reimplant right ureter. Attending Provider: Tanmay Moon Primary Care Provider: Shira Mora Consulting Providers: Yakov Koo Discharge Orders/Prescriptions Prescriptions: New oxycodone 5 mg tablet 5 mg PO Q6H PRN (Reason: pain) 3 Days Qty: 14 0RF ciprofloxacin HCl 500 mg tablet 500 mg PO BID Qty: 14 0RF docusate sodium [Colace] 100 mg capsule 100 mg PO BID Qty: 20 0RF Continued latanoprost 0.005 % drops 1 drp ophthalmic (eye) QHS Patient Comments: INSTILL ONE DROP IN EACH EYE AT BEDTIME timolol maleate 0.5 % drops 1 drp ophthalmic (eye) .QAM Patient Comments: INSTILL ONE DROP IN EACH EYE ONCE DAILY amlodipine 10 mg tablet 10 mg PO DAILY Patient Comments: TAKE 1 TABLET BY MOUTH EVERY DAY hydrochlorothiazide 12.5 mg capsule 12.5 mg PO DAILY Patient Comments: TAKE ONE CAPSULE BY MOUTH EVERY DAY atorvastatin 20 mg tablet 20 mg PO QHS Patient Comments: TAKE ONE TABLET BY MOUTH EVERY DAY AT BEDTIME ibuprofen 600 mg tablet 600 mg PO Q6H PRN (Reason: fever or pain) 3 Days Qty: 20 0RF Referrals / Follow Up: Tanmay Moon MD [Med Staff - Active Staff] - Shira Mora MD [Primary Care Provider] -
--- NOTE | 2024-09-03 07:26 | DCINST_ITS ---
Discharge Instructions Diet Discharge Diet: No restrictions DC O2, CPAP, BIPAP needs MD Home O2 Instructions: Home O2 discharge Instructions Type of respiratory needs? Oxygen 09/03/24 07:26 DC Oxygen Instruction Oxygen frequency Continuous 09/03/24 07:26 Continuous oxygen liters per 2 09/03/24 07:26 minute Additional Home O2 Discharge instructions: Yes Type of respiratory needs?: Oxygen Oxygen frequency: Continuous Continuous oxygen liters per minute: 2 Dressing / Incision May shower in (days): 1 Dressing / Incision Call your doctor if you observe: Fever of 101 or Higher Catheter: Matthews to leg bag and Matthews to large bag Drain: Post Follow Up Care Please Follow Up With: Tanmay Moon MD Test Results: Test results from this visit will be discussed in further detail at your follow- up appointment, if applicable. Discharge Plan Admission Admit Date/Time: 08/30/24 11:39 Primary Reason for Your Visit: reimplant right ureter. Attending Provider: Tanmay Moon Primary Care Provider: Shira Mora Consulting Providers: Yakov Koo Discharge Orders/Prescriptions Prescriptions: New oxycodone 5 mg tablet 5 mg PO Q6H PRN (Reason: pain) 3 Days Qty: 14 0RF ciprofloxacin HCl 500 mg tablet 500 mg PO BID Qty: 14 0RF docusate sodium [Colace] 100 mg capsule 100 mg PO BID Qty: 20 0RF Continued latanoprost 0.005 % drops 1 drp ophthalmic (eye) QHS Patient Comments: INSTILL ONE DROP IN EACH EYE AT BEDTIME timolol maleate 0.5 % drops 1 drp ophthalmic (eye) .QAM Patient Comments: INSTILL ONE DROP IN EACH EYE ONCE DAILY amlodipine 10 mg tablet 10 mg PO DAILY Patient Comments: TAKE 1 TABLET BY MOUTH EVERY DAY hydrochlorothiazide 12.5 mg capsule 12.5 mg PO DAILY Patient Comments: TAKE ONE CAPSULE BY MOUTH EVERY DAY atorvastatin 20 mg tablet 20 mg PO QHS Patient Comments: TAKE ONE TABLET BY MOUTH EVERY DAY AT BEDTIME ibuprofen 600 mg tablet 600 mg PO Q6H PRN (Reason: fever or pain) 3 Days Qty: 20 0RF Referrals / Follow Up: Tanmay Moon MD [Med Staff - Active Staff] - Shira Mora MD [Primary Care Provider] - Disposition Discharge Orders: Discharge Patient (Routine); Ordered 09/03/24 Ordered By: Dr. Tanmay Moon
[2024-09-03] MEDS: levoFLOXacin 250 MG Tablet PO (07:35)
[2024-09-03] MEDS: Ipratropium/Albuterol Sulfate 3 ML AMPUL.NEB INHALATION ×2 (07:43→13:25)
[2024-09-03] MEDS: Ondansetron 4 MG/2 ML Vial IV (08:12)
[2024-09-03] MEDS: hydroCHLOROthiazide 12.5mg 12.5 MG PO (08:15)
[2024-09-03] MEDS: amLODIPine 10 MG Tablet PO (08:15)
[2024-09-03] MEDS: Ibuprofen 600 MG Tablet PO (08:15)
[2024-09-03] MEDS: Timolol 0.5% 5ML OPTH.BTL 1 DRP EACH EYE (08:16)
[2024-09-03 08:34] LABS: Hematocrit 48.5 % (40-54); Hemoglobin 16.3 g/dL (13.0-16.5); Lymphocyte % 13.7 % (19-41); Mean Corp Hgb Conc 33.6 g/dL (32-36); Mean Corpuscular Hgb 29.1 pg (27.0-32.0); Mean Corpuscular Volume 86.5 fL (80-94); Monocyte% 8.3 % (0-10); Neutrophil % 77.3 % (47-70); Platelet Count 269 K/mm3 (150-450); RBC Distribution Width CV 14.2 % (11.6-14.6); Red Blood Count 5.61 M/mm3 (4.6-6.2); White Blood Count 11.5 K/mm3 (4.4-11.0)
[2024-09-03 08:35] LABS: Absolute Lymphocyte Count 1.58 X10^3/uL (0.83-4.51); Absolute Neutrophil Count 8.9 X10^3/uL (2.0-7.7); Basophil# 0.02 X10^3/uL; Basophil% 0.2 % (0-1); Eosinophil# 0.03 X10^3/uL; Eosinophils% 0.3 % (0-5); Lymphocyte # 1.58 X10^3/ul (0.83-4.51); Monocyte# 0.96 X10^3/uL; NRBC Flagged by Analyzer 0 % (0-5); Neutrophil # 8.92 X10^3/uL (2.7-7.7)
[2024-09-03 09:13] LABS: Anion Gap 8 (5-15); BUN 40 mg/dL (7-18); BUN/Creat Ratio 22.7 RATIO (10-20); Calcium,Total 9.2 mg/dL (8.5-10.1); Chloride 101 mmol/L (98-107); Creatinine, Serum 1.76 mg/dL (0.70-1.30); EST Glomerular Filtration Rate 40 mL/min (>60); Est Glom Filt Rate - Afr Amer 49 mL/min (>60); Estimated Creatinine Clearance 39.72 ml/min; Glucose 145 mg/dL (74-106); Sodium Level 136 mmol/L (136-145)
--- NOTE | 2024-09-03 11:06 | CT_ITS ---
STUDY: CTA CHEST REASON FOR EXAM: Male, 79 years old. hypoxia RADIATION DOSAGE (If Supplied By Facility): CTDIvol = ( 11.59 ) mGy, DLP = ( 305.07 ) mGycm TECHNIQUE: The examination was performed with the intravenous administration of IV 100mL Isovue-370. Post-processing of the angiographic images was performed, with multiplanar reformation and 3D reconstruction. Individualized dose optimization techniques were used for this CT. COMPARISON: Chest x-ray dated August 31, 2024. FINDINGS: Hyperinflated lungs with moderate cystic emphysematous changes. Small bilateral pleural effusions are also present. Moderate discoid atelectasis is present in the left lung base. Mild atelectasis is also present in the right lung base. No visualized pneumonic consolidation. No nodules or masses are present. No pneumothorax. The trachea and bilateral mainstem bronchi are are normal. Normal enhancement of the main pulmonary artery and right and left pulmonary arteries. Normal enhancement of the bilateral peripheral pulmonary arteries. There is no demonstrated pulmonary embolism. There is atherosclerotic calcification of the aortic arch with tortuosity. There is no demonstrated aortic dissection. Normal heart and pericardium. Normal mediastinum. Normal hilar regions. Normal visualized trachea and bronchi. Normal chest wall structures. There are degenerative changes of thoracic spine. Included upper abdomen: Moderate gaseous distention of the stomach and food contents. A large cyst is seen in the superior pole of the left kidney measuring 8.96 cm without enhancement or suspicious features. A moderate size simple cyst is present upper pole of the right kidney measuring 5.90 cm. The cysts do not require any additional workup. Small hiatal hernia noted. CT/CTA Chest W/WO Contrast IMPRESSION: 1. No demonstrated pulmonary embolism or arterial dissection. 2. Hyperinflated lungs with moderate cystic emphysematous changes. 3. Small bilateral pleural effusions are also present. Moderate discoid atelectasis is present in the left lung base. Mild atelectasis is also present in the right lung base. No visualized pneumonic consolidation. No nodules or masses are present. No pneumothorax. Electronically Signed: Michael Nuñez MD at 12:33 EST ,
--- NOTE | 2024-09-03 14:37 | CASEMGMT ---
Addendum entered by Jud Celaya 09/03/24 14:51: Dr Moon made aware home O2 testing has been completed and pt does not qualify for any home O2. He states okay to discharge pt home w/out oxygen and states he will do addendum to pt's discharge summary re: same. Dr Koo also made aware pt does not qualify for any home O2. He states from his standpoint, pt can be discharged. Original Note: SHANTELLE CAVANAUGH NOTE: Pt being discharged. Home amb O2 testing has been completed. Pt does not qualify for home O2. SHANTELLE CAVANAUGH to room. Pt is aware he does not need home O2. He states he feels comfortable discharging home w/ the F/C, but states he not been educated on F/C care yet. RNAisha, made aware and states will provide education on this. Pt denies the need for any HHC or OP therapy. He plans to call and schedule f/u appt w/Dr Moon in 10 days. He denies needing assistance w/scheduling this appt. Pt uses a cane @ home, but has been using a walker while in the hospital. He wishes to just use his cane @ home, as previously and denies the need of a walker. He states if he would decide later that he wishes to use a walker, he states he thinks they have one @ home, as his had prior knee surgery. SHANTELLE CAVANAUGH informed him to ask for CM if he changes his mind prior to discharge. He voices understanding/appreciation. He denies having other discharge needs/concerns. Ramon BARNES RN, CM
--- NOTE | 2024-09-03 15:00 | PCM.DC ---
Discharge Instructions Diet Discharge Diet: No restrictions DC O2, CPAP, BIPAP needs RN Home O2 Qualification: Home O2 Qualification: Is the patient on home oxygen No 09/03/24 12:33 Home O2 Qualification: AT REST 1- Pulse Ox at rest 93 09/03/24 12:33 Home O2 Qualification: WITH AMBULATION 1- Pulse Ox with ambulation 89 09/03/24 12:33 1- Oxygen Flow Rate with 0 09/03/24 12:33 ambulation MD Home O2 Instructions: Home O2 discharge Instructions Type of respiratory needs? Oxygen 09/03/24 07:27 DC Oxygen Instruction Oxygen frequency Continuous 09/03/24 07:27 Continuous oxygen liters per 2 09/03/24 07:27 minute Additional Home O2 Discharge instructions: No Dressing / Incision Discharge Activity: Return to Normal Activity and May Not Drive (while taking narcotic pain medications.) May shower in (days): 1 Dressing / Incision Call your doctor if you observe: Fever of 101 or Higher Catheter: Matthews to leg bag and Matthews to large bag Drain: [place] Follow Up Care Please Follow Up With: Tanmay Moon MD When: Call [phone] for an appointment Test Results: Test results from this visit will be discussed in further detail at your follow-up appointment, if applicable. Discharge Plan Admission Admit Date/Time: 08/30/24 11:39 Primary Reason for Your Visit: reimplant right ureter. Attending Provider: Tanmay Moon Primary Care Provider: Shira Mora Consulting Providers: Yakov Koo Discharge Orders/Prescriptions Prescriptions: New oxycodone 5 mg tablet 5 mg PO Q6H PRN (Reason: pain) 3 Days Qty: 14 0RF ciprofloxacin HCl 500 mg tablet 500 mg PO BID Qty: 14 0RF docusate sodium [Colace] 100 mg capsule 100 mg PO BID Qty: 20 0RF Continued latanoprost 0.005 % drops 1 drp ophthalmic (eye) QHS Patient Comments: INSTILL ONE DROP IN EACH EYE AT BEDTIME timolol maleate 0.5 % drops 1 drp ophthalmic (eye) .QAM Patient Comments: INSTILL ONE DROP IN EACH EYE ONCE DAILY amlodipine 10 mg tablet 10 mg PO DAILY Patient Comments: TAKE 1 TABLET BY MOUTH EVERY DAY hydrochlorothiazide 12.5 mg capsule 12.5 mg PO DAILY Patient Comments: TAKE ONE CAPSULE BY MOUTH EVERY DAY atorvastatin 20 mg tablet 20 mg PO QHS Patient Comments: TAKE ONE TABLET BY MOUTH EVERY DAY AT BEDTIME ibuprofen 600 mg tablet 600 mg PO Q6H PRN (Reason: fever or pain) 3 Days Qty: 20 0RF Referrals / Follow Up: Tanmay Moon MD [Med Staff - Active Staff] - Shira Mora MD [Primary Care Provider] - Disposition Disposition (needs filled in before D/C Order can be placed): Home, Self Care
--- NOTE | 2024-09-03 15:35 | PN.HOSP_ITS ---
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 Later this afternoon, patient was able to be weaned off oxygen and did not require oxygen as an outpatient. I talked briefly with Dr. Moon about this. Objective Data Objective Data Vital Signs: Vital Signs Temp Pulse Resp BP Pulse Ox O2 Del Method O2 Flow Rate 98.4 F 71 18 122/59 H 89 Room Air 4 09/03/24 10:41 09/03/24 13:10 09/03/24 13:10 09/03/24 10:41 09/03/24 14:10 09/03/24 10:41 09/03/24 08:35 Oxygen Flow Rate (L/min) 4 Oxygen Delivery Method Room Air Weight: 90 kg Body Mass Index (BMI) 26.2 Intake & Output: Intake and Output for Last 24 Hours 09/01/24 09/02/24 09/03/24 23:59 23:59 23:59 Intake Total 1000 / 1000 300 / 300 1734 / 1734 Output Total 1900 / 1900 915 / 915 1000 / 1000 Balance -900 / -900 -615 / -615 734 / 734 Lab / Micro Data 09/03/24 08:27 09/03/24 08:27 Labs: Laboratory Results - last 24 hr 09/03/24 08:27: WBC 11.5 H, RBC 5.61, Hgb 16.3, Hct 48.5, MCV 86.5, MCH 29.1, MCHC 33.6, RDW Std Deviation 45.0 H, RDW Coeff of [place] 14.2, Plt Count 269, MPV 9.0, Immature Gran % (Auto) 0.200, Neut % (Auto) 77.3 H, Lymph % (Auto) 13.7 L, [place] % (Auto) 8.3, Eos % (Auto) 0.3, Baso % (Auto) 0.2, Absolute Neuts (auto) 8.9 H, Absolute Lymphs (auto) 1.58, Nucleated RBC % 0, Sodium 136, Potassium 3.0 L, Chloride 101, Carbon Dioxide 27.0, Anion Gap 8, BUN 40 H, Creatinine 1.76 H, Estim Creat Clear Calc 39.72, Est GFR (MDRD) Af Amer 49 L, Est GFR (MDRD) Non-Af 40 L, BUN/Creatinine Ratio 22.7 H, Glucose 145 H, Calcium 9.2 Micro: Microbiology 09/02/24 13:52 Mucosa - Nose Respiratory Panel (PCR) - Final Radiography Diagnostic Testing: Radiology Impression Chest CTA 09/03/24 11:06 IMPRESSION: 1. No demonstrated pulmonary embolism or arterial dissection. 2. Hyperinflated lungs with moderate cystic emphysematous changes. 3. Small bilateral pleural effusions are also present. Moderate discoid atelectasis is present in the left lung base. Mild atelectasis is also present in the right lung base. No visualized pneumonic consolidation. No nodules or masses are present. No pneumothorax. Electronically Signed: Michael Nuñez MD at 12:33 EST Reading Location ID and State: [address] [place] [address] , Service support , Physical Exam Const alert, oriented x3, no apparent distress, average body habitus and healthy appearing General Appearance: cooperative, well kempt and well developed Orientation / Consciousness: awake, oriented to person, oriented to place and oriented to time HEENT normocephalic and moist oral mucous membranes Eyes PERRL, EOMs intact bilaterally and conjunctivae normal Neck supple, no JVD, thyroid normal and no carotid bruits General: trachea midline Resp normal respiratory effort, no retractions, no use of accessory muscles and clear to auscultation bilaterally Auscultation: Negative for rales, rhonchi or wheezes Cardio regular rate, regular rhythm, S1 normal heart sound, S2 normal heart sound, no murmurs, no rub and no gallops GI normal to inspection, nondistended, normoactive bowel sounds, soft to palpation, non-tender and non-distended Extremity no clubbing, cyanosis or edema Skin no rashes or lesions noted General Skin Exam: no breakdown Neuro oriented x3, CN's II-XII intact bilaterally, moves all extremities, no focal motor deficits and no sensory deficits noted Sensorium / Orientation: awake and alert Speech: speech normal Psych affect normal Assessment & Plan Assessment/Plan (1) Hypoxemia: (2) Bladder tumor: PLAN: Plan 1.Hypoxia-resolved at this time-most likely secondary to atelectasis on a backdrop of emphysema. Patient does not require oxygen at home at this time. Patient appears medically stable for discharge. #2 essential hypertension-patient is on hydrochlorothiazide and amlodipine #3 hyperlipidemia-patient is on atorvastatin Total clinical time spent by myself addressing the patient's medical issues, reviewing his data, and collaborating with patient's care team: 35 minutes Charges/Coding Visit Charges Inpatient E&M: 07009 Subs Hosp L2
--- NOTE | 2024-09-03 20:58 | PN.URO_ITS ---
Subjective Subjective Original plan was to discharge the patient home today however the family was upset because his belly is still distended mostly has gas I think he still has to pass more gas. He has been tolerating regular diet he has been having bowel movements and has been passing gas but he does have some soft distention of the abdomen I will keep in the hospital longer until this resolves per patient wishes and family wishes. Objective Data Objective Data Vital Signs: Vital Signs Temp Pulse Resp BP Pulse Ox O2 Del Method O2 Flow Rate 98.2 F 94 18 110/64 91 Room Air 4 09/03/24 17:22 09/03/24 17:22 09/03/24 17:22 09/03/24 17:22 09/03/24 17:22 09/03/24 17:22 09/03/24 08:35 Oxygen Flow Rate (L/min) 4 Oxygen Delivery Method Room Air Weight: 90 kg Body Mass Index (BMI) 26.2 Intake & Output: Intake and Output for Last 24 Hours 09/01/24 09/02/24 09/03/24 23:59 23:59 23:59 Intake Total 1000 / 1000 300 / 300 1734 / 1734 Output Total 1900 / 1900 915 / 915 1000 / 1000 Balance -900 / -900 -615 / -615 734 / 734 Lab / Micro Data 09/03/24 08:27 09/03/24 08:27 Labs: Laboratory Results - last 24 hr 09/03/24 08:27: WBC 11.5 H, RBC 5.61, Hgb 16.3, Hct 48.5, MCV 86.5, MCH 29.1, MCHC 33.6, RDW Std Deviation 45.0 H, RDW Coeff of [place] 14.2, Plt Count 269, MPV 9.0, Immature Gran % (Auto) 0.200, Neut % (Auto) 77.3 H, Lymph % (Auto) 13.7 L, [place] % (Auto) 8.3, Eos % (Auto) 0.3, Baso % (Auto) 0.2, Absolute Neuts (auto) 8.9 H, Absolute Lymphs (auto) 1.58, Nucleated RBC % 0, Sodium 136, Potassium 3.0 L, Chloride 101, Carbon Dioxide 27.0, Anion Gap 8, BUN 40 H, Creatinine 1.76 H, Estim Creat Clear Calc 39.72, Est GFR (MDRD) Af Amer 49 L, Est GFR (MDRD) Non-Af 40 L, BUN/Creatinine Ratio 22.7 H, Glucose 145 H, Calcium 9.2 Micro: Microbiology 09/02/24 13:52 Mucosa - Nose Respiratory Panel (PCR) - Final Radiography Diagnostic Testing: Radiology Impression Chest CTA 09/03/24 11:06 IMPRESSION: 1. No demonstrated pulmonary embolism or arterial dissection. 2. Hyperinflated lungs with moderate cystic emphysematous changes. 3. Small bilateral pleural effusions are also present. Moderate discoid atelectasis is present in the left lung base. Mild atelectasis is also present in the right lung base. No visualized pneumonic consolidation. No nodules or masses are present. No pneumothorax. Electronically Signed: Michael Nuñez MD at 12:33 EST Reading Location ID and State: [facility] / [place] , Service support ,
--- NOTE | 2024-09-03 22:04 | NURSING ---
ptnotedto have respirations of 18 and sp02 was 84% on room air, 02 at 2l/m was placed on with pt sp02 coming up to 89% and 02 was increased to 3l/m with no changes in sp02. pt abd is noted to have bowel sounds but is rounded and tender to the touch. pt is also burping and passing small amts flatus. rn made aware and placed a call to the hospitalist
[2024-09-03] MEDS: Atorvastatin Calcium 20 MG Tablet PO (22:14)
[2024-09-03] MEDS: Latanoprost 0.005% 1 Bottle 1 DRP OPHTHALMIC (22:14)
[2024-09-04] VITALS (33 sets, daily range): BP systolic 65–117; BP diastolic 38–102; PULSE 42–122; RESP 17–33; TEMP 36.2–37; O2SAT 84–96
--- NOTE | 2024-09-04 02:52 | NURSING ---
had rn come to room to check vs and sp02 both were running low. pt had just returned from the bathroom and was noted to be mildly sob. sp02 was 86/89 on 3l/m bp running low at 85/55 . pt was repositioned higher in the bed and 02 was increased to 4l/m, when using the IS sp02 increases to 89-91%, bp rechecked with different machine and bp was 105/58 sfl. pt then stated that when he is at home his sp02 usually runs 89-90% on ra pt continue to state that is having some mild nausea and a moderate liquid stool that was green-brown
[2024-09-04] MEDS: levoFLOXacin 250 MG Tablet PO (07:00)
[2024-09-04] MEDS: 0.9% Normal Saline (1000mL) 1,000 ML 999 ML IV ×2 (07:08→15:06)
--- NOTE | 2024-09-04 07:14 | PN.URO_ITS ---
Subjective Subjective Patient was progressing but this morning he is becoming a little bit more distended still soft and distended in the abdomen reports he is passing gas but also is not tolerating food or liquids much just liquids does not want to eat so we will put him on some IV fluids and I can order a CAT scan of the abdomen and pelvis with oral contrast and IV contrast. Today we will check a CBC and a BMP Objective Data Objective Data Vital Signs: Vital Signs Temp Pulse Resp BP Pulse Ox O2 Del Method O2 Flow Rate 97.6 F L 108 H 17 108/86 H 93 Nasal Cannula 3 09/04/24 04:00 09/04/24 04:00 09/04/24 04:00 09/04/24 04:00 09/04/24 04:00 09/04/24 04:00 09/04/24 04:00 Oxygen Flow Rate (L/min) 3 Oxygen Delivery Method Nasal Cannula Weight: 90 kg Body Mass Index (BMI) 26.2 Intake & Output: Intake and Output for Last 24 Hours 09/02/24 09/03/24 09/04/24 23:59 23:59 23:59 Intake Total 300 / 300 1794 / 1794 330 / 330 Output Total 915 / 915 1000 / 1000 Balance -615 / -615 794 / 794 330 / 330 Lab / Micro Data 09/03/24 08:27 09/03/24 08:27 Labs: Laboratory Results - last 24 hr 09/03/24 08:27: WBC 11.5 H, RBC 5.61, Hgb 16.3, Hct 48.5, MCV 86.5, MCH 29.1, MCHC 33.6, RDW Std Deviation 45.0 H, RDW Coeff of [place] 14.2, Plt Count 269, MPV 9.0, Immature Gran % (Auto) 0.200, Neut % (Auto) 77.3 H, Lymph % (Auto) 13.7 L, [place] % (Auto) 8.3, Eos % (Auto) 0.3, Baso % (Auto) 0.2, Absolute Neuts (auto) 8.9 H, Absolute Lymphs (auto) 1.58, Nucleated RBC % 0, Sodium 136, Potassium 3.0 L, Chloride 101, Carbon Dioxide 27.0, Anion Gap 8, BUN 40 H, Creatinine 1.76 H, Estim Creat Clear Calc 39.72, Est GFR (MDRD) Af Amer 49 L, Est GFR (MDRD) Non-Af 40 L, BUN/Creatinine Ratio 22.7 H, Glucose 145 H, Calcium 9.2 Micro: Microbiology 09/02/24 13:52 Mucosa - Nose Respiratory Panel (PCR) - Final Radiography Diagnostic Testing: Radiology Impression Chest CTA 09/03/24 11:06 IMPRESSION: 1. No demonstrated pulmonary embolism or arterial dissection. 2. Hyperinflated lungs with moderate cystic emphysematous changes. 3. Small bilateral pleural effusions are also present. Moderate discoid atelectasis is present in the left lung base. Mild atelectasis is also present in the right lung base. No visualized pneumonic consolidation. No nodules or masses are present. No pneumothorax. Electronically Signed: Michael Nuñez MD at 12:33 EST Reading Location ID and State: [facility] / [place] , Service support ,
--- NOTE | 2024-09-04 07:15 | CT_ITS ---
HISTORY: Abdominal distention. TECHNIQUE: Helically acquired images were obtained of the abdomen and pelvis after the intravenous administration of 100 mL Isovue-300. Oral Gastrografin also administered. A radiation dose optimization technique was used for this scan. 434 images. COMPARISON: XR same day. FINDINGS: LOWER CHEST: Mild bilateral pleural effusions with mild lower lobe atelectasis. BOWEL: Mild distal esophageal wall thickening with mild fluid distention. Nasogastric tube tip in the proximal gastric body. Mildly dilated fluid-filled stomach. Multiple mildly dilated air fluid levels in the small bowel with right lower quadrant transition zone. Appendix not visualized. Mild fluid distention of the colon, partially decompressed mid to distally. Colonic diverticulosis without focal pericolonic inflammation. PERITONEUM: No significant ascites. LIVER: No enhancing mass. GALLBLADDER/BILIARY TREE: Faint dependent density in the gallbladder. SPLEEN/PANCREAS: Homogeneous and nonenlarged. ADRENAL GLANDS: 1.2 cm left adrenal nodule. KIDNEYS: Mild right renal cortical thinning. 7 mm right interpolar calculus. Multiple simple bilateral cortical cysts measuring up to 3.7 cm on the right and 8.8 cm on the left; follow-up not indicated. Fullness of the right renal collecting system with limited evaluation for lower pole calculi due to residual contrast in the renal collecting systems from prior CTA. No hydroureter. Trace air in the right proximal ureter. Right ureteral stent looped in the mid ureter with the tip deflected inferiorly in the mid ureter. 6 mm left lower pole calculus without hydronephrosis. VESSELS: Mild ectatic infrarenal abdominal aorta without aneurysm. Moderate mural thrombus, ulcerated plaque, and calcified plaque at the abdominal aorta. Moderate atherosclerosis of the abdominal aorta and its major branches. PELVIC ORGANS: Matthews catheter, distal end of right ureteral stent, residual contrast from prior CTA chest, and mild air in the partially decompressed urinary bladder. BONES: Degenerative change and mild scoliosis. CT/Abdomen/Pelvis WITH Contrast IMPRESSION: Small bowel obstruction with multiple dilated small bowel loops and right lower quadrant transition zone. Mild distal esophageal wall thickening, likely esophagitis. Nasogastric tube tip in the stomach. Diffuse fluid distention of bowel suggesting a component of enteritis. Colonic diverticulosis without acute diverticulitis. Malpositioned right ureteral stent, looped in the mid ureter with tip deflected inferiorly. Fullness of the right renal collecting system which may represent a combination of hydronephrosis with renal sinus cysts. Bilateral nonobstructing renal calculi. Bilateral renal cysts. Mild bilateral pleural effusions with lower lobe atelectasis. 1.2 cm left adrenal nodule. If there is no history of malignancy consider a follow-up low dose, non-contrast adrenal CT or chemical-shift adrenal MRI in 12 months. If there is a history of malignancy recommend a low dose, non-emergent, non-contrast adrenal CT or chemical-shift adrenal MRI follow-up study. Mild biliary sludge or artifact from vicarious excretion of contrast in the gallbladder. Electronically Signed: Pretty Crockett MD at 11:09 EST ,
[2024-09-04] MEDS: 0.9% Normal Saline (1000mL) 1,000 ML 75 ML IV (08:14)
[2024-09-04] MEDS: Timolol 0.5% 5ML OPTH.BTL 1 DRP EACH EYE (08:37)
[2024-09-04] MEDS: Potassium Chloride 10mEq/100mL 10 MEQ/100 ML IV.SOLN. 100 MEQ IV BOLUS ×3 (08:37→11:21)
[2024-09-04] MEDS: 0.9% Saline Lock 10 ML Syringe IV (08:41)
[2024-09-04] MEDS: Ondansetron 4 MG/2 ML Vial IV (08:41)
[2024-09-04 08:42] LABS: Absolute Lymphocyte Count 0.69 X10^3/uL (0.83-4.51); Absolute Neutrophil Count 3.3 X10^3/uL (2.0-7.7); Basophil# 0.03 X10^3/uL; Basophil% 0.6 % (0-1); Hematocrit 54.3 % (40-54); Hemoglobin 17.7 g/dL (13.0-16.5); Lymphocyte # 0.69 X10^3/ul (0.83-4.51); Lymphocyte % 14.1 % (19-41); Mean Corp Hgb Conc 32.6 g/dL (32-36); Mean Corpuscular Hgb 28.4 pg (27.0-32.0); Mean Corpuscular Volume 87.2 fL (80-94); Mean Platelet Vol. 9.5 fl (6.2-12.0); Monocyte# 0.77 X10^3/uL; Monocyte% 15.7 % (0-10); NRBC Flagged by Analyzer 0 % (0-5); Neutrophil # 3.33 X10^3/uL (2.7-7.7); Neutrophil % 68.2 % (47-70); POSITIVE MORPHOLOGY YES; Platelet Count 317 K/mm3 (150-450); RBC Distribution Width CV 14.7 % (11.6-14.6); RBC Distribution Width SD 46.9 fl (35.1-43.9); Red Blood Count 6.23 M/mm3 (4.6-6.2); White Blood Count 4.9 K/mm3 (4.4-11.0)
[2024-09-04 08:57] LABS: Anion Gap 12 (5-15); BUN 58 mg/dL (7-18); Calcium,Total 8.4 mg/dL (8.5-10.1); Chloride 105 mmol/L (98-107); Creatinine, Serum 3.05 mg/dL (0.70-1.30); EST Glomerular Filtration Rate 21 mL/min (>60); Est Glom Filt Rate - Afr Amer 26 mL/min (>60); Estimated Creatinine Clearance 22.92 ml/min; Glucose 186 mg/dL (74-106); Potassium 3.5 mmol/L (3.5-5.1); Sodium Level 136 mmol/L (136-145)
--- NOTE | 2024-09-04 08:57 | NURSING ---
paged dr. Moon and dr. Jessica as called to room by gavino PEPPER. pt dizzy 74/38, hr 79- 90% on 6l [ End ]
--- NOTE | 2024-09-04 09:02 | NURSING ---
updated Dr. Moon, informed awaiting response from Dr. Koo. orders given. primary RN bedside updated on orders. 902- talked with Dr. Koo updated on patient's condition (primary RN and respiratory therapist bedside) discussed. order for PICC obtained.
--- NOTE | 2024-09-04 09:06 | NURSING ---
talked with data warehouse manager, updated on patient and order to transfer to ICU.
[2024-09-04 09:15] LABS: Differential Indicated SCAN CRITERIA MET
--- NOTE | 2024-09-04 09:15 | NURSING ---
Dynamic Access piccline request placed viap portal.
--- NOTE | 2024-09-04 09:30 | RAD_ITS ---
HISTORY: NG placement, nurse will call when placed -- KUB with both diaphragms for NG/OG Verification. TECHNIQUE: XR Abdomen 1 View. COMPARISON: CTA chest prior day. FINDINGS: BOWEL GAS PATTERN: Nasogastric tube tip in the left upper quadrant. Dilated air fluid level in the stomach. Multiple dilated air fluid levels in the small bowel. FREE AIR: Limited evaluation due to gaseous distention of bowel. CALCIFICATIONS: Small right upper quadrant calcification observed. BONES: Degenerative change and mild scoliosis. SOFT TISSUES: Mild atelectasis in the lung bases. RAD/Abdomen Single View (Portable) IMPRESSION: Nasogastric tube tip in the region of the stomach. Multiple dilated air fluid levels in the small bowel concerning for bowel obstruction. Electronically Signed: Pretty Crockett MD at 9:46 EST ,
--- NOTE | 2024-09-04 09:33 | NURSING ---
ng placed w/light green return. pt tolerated well. abd xray obtained for placement. dr kim and nurse supervisor pipe finishing was in to see pt. 2nd bolus infusing.
--- NOTE | 2024-09-04 10:53 | NURSING ---
returned from ct of abd. pt hooked up to liws, [address] green [address]
[2024-09-04] MEDS: 0.9% Normal Saline (500mL Bag) 500 ML 75 ML IV (11:21)
--- NOTE | 2024-09-04 11:22 | NURSING ---
pt was to receive another 1L bolus, 500ml bolus was entered into computer. bolus was given w/previous hung 1l bag ns. dr ordonez reviewed ct and xray results. orders received.
--- NOTE | 2024-09-04 12:50 | NURSING ---
REPORT CALLED TO BR[place]NN IN ICU. PT WILL GO TO [id number]
--- NOTE | 2024-09-04 13:24 | EX.PCM.CON.S ---
Assessment & Plan Assessment/Plan (1) Small bowel obstruction: PLAN: The patient is a 79-year-old male status post a recent robotic right ureter reimplantation surgery performed about a week ago. Patient has not been eating much since surgery. He states that he has been passing flatus and passing some liquid stool but abdominal distention and nausea has increased within the last 24 hours. Imaging indicates small bowel obstruction. Certainly this can occur in the early postoperative period secondary to adhesions. Generalized ileus is also another possibility. Given the fact that he is passing gas and stool, this is reassuring. I certainly agree with nasogastric tube placement and continued low intermittent wall suction for decompression purposes. I would certainly maintain n.p.o. status. I have placed orders to repeat abdominal x-rays tomorrow morning. I encouraged ambulation if possible. At this point I would want to take a conservative approach to this bowel obstruction versus ileus to see if this improves with NG tube decompression and IV fluids. Review of his labs do indicate dehydration and so fluids certainly will be helpful. I did explain to him and his that if his symptoms fail to improve in an appropriate timeframe, then surgical intervention may be necessary. At this point I would recommend continued supportive measures and will continue to follow closely and advise accordingly. HPI Consult Data Date of Consult: 09/04/24 HPI Narrative Reason for Consultation: Postoperative small bowel obstruction HPI Narrative: BRANDYN MCMULLEN, is a 79 M who underwent surgery about a week ago to address a right ureter stricture. He underwent a robotic reimplantation of the right ureter into the bladder. Based on review of the operative note as well as a discussion with the surgeon, it sounds as though the surgery was pretty unremarkable. Patient has been hospitalized since surgery. The patient as well as his states that he really has not been able to eat much since the surgery. He states that he has been passing gas and has been also producing liquid stools including today. The patient developed increasing nausea as well as abdominal distention especially within the last [address] scan was performed earlier today and was read as consistent with a small bowel obstruction with a transition point in the right lower quadrant. There were numerous dilated loops of small bowel present. His stomach was significantly dilated with fluid. There appeared to be some air in liquid within the colon as well. Given the findings of a early postoperative small bowel obstruction, a general surgery consult was requested. I did speak directly with the surgeon. Nasogastric tube has recently been placed and was just advanced further and has produced almost a liter of fluid. In discussions with the nursing staff, it sounds as though his urine output has been suboptimal today, and his blood pressure has been on the low side as well. A PICC line was just recently placed and he has been transferred to the intensive care unit for further observation. He denies any significant abdominal pain per se. He does admit to quite a bit of abdominal distention. [facility] Medical History (Updated 09/04/24 @ 13:[address] Torsten Singh MD) Small bowel obstruction Loss of hearing Cancer Shortness of breath on exertion Smoker Wears glasses Wears contact lenses Ambulates with cane Arthritis High cholesterol Injury of head and neck Syncope History of edema Hypertension History of irregular heartbeat Home Medications ?Medication ?Instructions ?Recorded ?Last Taken ?Type amlodipine 10 mg tablet 10 mg PO DAILY bp 06/25/23 08/29/24 History atorvastatin 20 mg tablet 20 mg PO QHS cholesterol 06/25/23 08/28/24 History hydrochlorothiazide 12.5 mg capsule 12.5 mg PO DAILY edema 06/25/23 08/28/24 History latanoprost 0.005 % eye drops 1 drp ophthalmic (eye) QHS glaucoma 06/25/23 08/29/24 History timolol maleate 0.5 % eye drops 1 drp ophthalmic (eye) .QAM 06/25/23 08/29/24 History glaucoma ibuprofen 600 mg tablet 600 mg PO Q6H PRN fever or pain 3 05/16/24 Unknown Rx days #20 tabs ciprofloxacin HCl 500 mg tablet 500 mg PO BID #14 tabs 08/29/24 Unknown Rx docusate sodium 100 mg capsule 100 mg PO BID #20 caps 08/29/24 Unknown Rx (Colace) oxycodone 5 mg tablet 5 mg PO Q6H PRN pain 3 days #14 08/29/24 Unknown Rx tabs Allergy/AdvReac Type Severity Reaction Status Date / Time No Known Allergies Allergy Verified 08/29/24 10:05 Surgical History Hx of cystoscopy History of transurethral resection of bladder tumor (TURBT) History of dental surgery Hx of surgical procedure Hx of surgical procedure History of tonsillectomy and adenoidectomy Social History Smoking Status: Current every day smoker tobacco type: cigarettes Physical Exam Narrative He is alert and oriented x 3. He is in no acute distress. He is receiving oxygen via nasal cannula Nasogastric tube is in place and is producing a significant amount of output especially since being advanced. Abdomen is moderately distended but soft. Palpation of the abdomen does not elicit any significant tenderness or pain. Incisions seem to be free of any erythema or drainage. There is no rebound or guarding. No peritoneal signs to suggest an acute abdomen Overall his abdomen is relatively distended yet benign otherwise Lab / Micro Data 09/04/24 08:26 09/04/24 08:26 Labs: Laboratory Results - last 24 hr 09/04/24 08:26: WBC 4.9, RBC 6.23 H, Hgb 17.7 H, Hct 54.3 H, MCV 87.2, MCH 28.4, MCHC 32.6, RDW Std Deviation 46.9 H, RDW Coeff of [place] 14.7 H, Plt Count 317, MPV 9.5, Immature Gran % (Auto) 1.400 H, Neut % (Auto) 68.2, Lymph % (Auto) 14.1 L, [place] % (Auto) 15.7 H, Eos % (Auto) 0.0, Baso % (Auto) 0.6, Absolute Neuts (auto) 3.3, Absolute Lymphs (auto) 0.69 L, Nucleated RBC % 0, Sodium 136, Potassium 3.5, Chloride 105, Carbon Dioxide 19.0 L, Anion Gap 12, BUN 58 H, Creatinine 3.05 H, Estim Creat Clear Calc 22.92, Est GFR (MDRD) Af Amer 26 L, Est GFR (MDRD) Non-Af 21 L, BUN/Creatinine Ratio 19.0, Glucose 186 H, Calcium 8.4 L Imaging Radiology Impression Abdomen/Pelvis CT 09/04/24 07:15 IMPRESSION: Small bowel obstruction with multiple dilated small bowel loops and right lower quadrant transition zone. Mild distal esophageal wall thickening, likely esophagitis. Nasogastric tube tip in the stomach. Diffuse fluid distention of bowel suggesting a component of enteritis. Colonic diverticulosis without acute diverticulitis. Malpositioned right ureteral stent, looped in the mid ureter with tip deflected inferiorly. Fullness of the right renal collecting system which may represent a combination of hydronephrosis with renal sinus cysts. Bilateral nonobstructing renal calculi. Bilateral renal cysts. Mild bilateral pleural effusions with lower lobe atelectasis. 1.2 cm left adrenal nodule. If there is no history of malignancy consider a follow-up low dose, non-contrast adrenal CT or chemical-shift adrenal MRI in 12 months. If there is a history of malignancy recommend a low dose, non-emergent, non-contrast adrenal CT or chemical-shift adrenal MRI follow-up study. Mild biliary sludge or artifact from vicarious excretion of contrast in the gallbladder. Electronically Signed: Pretty Crockett MD at 11:09 EST , KUB X-Ray 09/04/24 09:30 IMPRESSION: Nasogastric tube tip in the region of the stomach. Multiple dilated air fluid levels in the small bowel concerning for bowel obstruction. Electronically Signed: Pretty Crockett MD at 9:46 EST , Charges/Coding Visit Charges Inpatient E&M: 49575 Init Hosp L3
--- NOTE | 2024-09-04 14:02 | CON.PCM.CC_ITS ---
Assessment & Plan Assessment/Plan (1) Small bowel obstruction: (2) Hypoxemia: (3) Hypotension: PLAN: Plan RECOMMENDATIONS: 1. Additional IV fluid resuscitation as ordered. 2. Initiate vasopressor support, if needed. 3. Obtain blood cultures and urine analysis. 4. Check procalcitonin and BNP. 5. Continue scheduled bronchodilators. 6. Wean supplemental oxygen to maintain saturations at or above 90%. 7. Encourage incentive spirometer use while in bed. 8. NG tube management per general surgery. Continue n.p.o. status. IMPRESSIONS: 1. Undifferentiated shock Suspect hypovolemic etiology. The patient did report decreased p.o. intake over the last several days. He does appear hemoconcentrated on labs. There is no discernible source of infection yet identified. However, we will plan to check a lactate and obtain a urine analysis and blood cultures. In the interim, I would proceed with aggressive volume resuscitation as tolerated. If the patient remains persistently hypotensive, vasopressor support will be initiated. 2. Small bowel obstruction General Surgery is following to assist with medical management. Plans at this time include conservative management with NG tube and bowel rest. 3. Hypoxemia Likely multifactorial with underlying undiagnosed obstructive lung disease and atelectasis contributing. Accordingly, the patient will be continued on supplemental oxygen to maintain saturations at or above 90%, along with scheduled bronchodilators. Aggressive incentive spirometer use has been encouraged. 4. History of bladder CA/hypertension/hyperlipidemia/chronic tobacco dependency Complicates care, management, recovery and prognosis. Continue supportive measures as noted above. This note was generated with [employer] dictation software. It may contain incorrect words, spelling, and punctuation that were not noted in checking the note before signing. HPI Consult Data Date of Consult: 09/04/24 HPI Narrative Reason for Consultation: Hypotension HPI Narrative: The patient is a 79-year-old male, with a history as outlined below, who presented initially on August 29 to undergo robotic right reimplantation of the ureter. The patient has a history of a distal right ureteral stricture status post resection for bladder cancer. His operative course was uncomplicated. Over the ensuing days, postprocedure, the patient was unable to be weaned from supplemental oxygen. The patient has been afebrile with borderline hemodynamics as of the morning of September 04. He was being maintained on supplemental oxygen between 3 and 5 L throughout most of the hospital stay. This morning, the patient has a normal white blood cell count with a hemoglobin of 17.7 g/dL. Chemistry profile was notable for a creatinine of 3.05. A CTA chest was completed on September 03 and demonstrated no evidence for pulmonary embolism. Bilateral emphysematous changes were noted along with small bilateral pleural effusions. Respiratory viral panel was unremarkable. On account of his borderline hemodynamic status, the patient received supplemental IV fluid hydration and a CT abdomen/pelvis was obtained due to worsening abdominal distention. That imaging study demonstrated small bowel obstruction with multiple dilated small bowel loops and a right lower quadrant transition zone. The patient was seen in consultation by general surgery with NG tube being placed with tentative plans for conservative management for the time being. The patient reported to me that he has an extensive tobacco abuse history and continues to smoke 1 pack of cigarettes per day. However, he is not normally on supplemental oxygen at his baseline. Nevertheless, he has never been evaluated by a fabricating machine operator, nor has he ever been formally diagnosed with COPD. [facility] Medical History (Updated 09/04/24 @ 14:[address] Harris Duke, DO) Small bowel obstruction Loss of hearing Cancer Shortness of breath on exertion Smoker Wears glasses Wears contact lenses Ambulates with cane Arthritis High cholesterol Injury of head and neck Syncope History of edema Hypertension History of irregular heartbeat Home Medications ?Medication ?Instructions ?Recorded ?Last Taken ?Type amlodipine 10 mg tablet 10 mg PO DAILY bp 06/25/23 08/29/24 History atorvastatin 20 mg tablet 20 mg PO QHS cholesterol 06/25/23 08/28/24 History hydrochlorothiazide 12.5 mg capsule 12.5 mg PO DAILY edema 06/25/23 08/28/24 History latanoprost 0.005 % eye drops 1 drp ophthalmic (eye) QHS glaucoma 06/25/23 08/29/24 History timolol maleate 0.5 % eye drops 1 drp ophthalmic (eye) .QAM 06/25/23 08/29/24 History glaucoma ibuprofen 600 mg tablet 600 mg PO Q6H PRN fever or pain 3 05/16/24 Unknown Rx days #20 tabs ciprofloxacin HCl 500 mg tablet 500 mg PO BID #14 tabs 08/29/24 Unknown Rx docusate sodium 100 mg capsule 100 mg PO BID #20 caps 08/29/24 Unknown Rx (Colace) oxycodone 5 mg tablet 5 mg PO Q6H PRN pain 3 days #14 08/29/24 Unknown Rx tabs Allergy/AdvReac Type Severity Reaction Status Date / Time No Known Allergies Allergy Verified 08/29/24 10:05 Surgical History Hx of cystoscopy History of transurethral resection of bladder tumor (TURBT) History of dental surgery Hx of surgical procedure Hx of surgical procedure History of tonsillectomy and adenoidectomy Social History Smoking Status: Current every day smoker tobacco type: cigarettes ROS ROS Narrative 10 systems were reviewed with pertinent positives as noted in the HPI above. Physical Exam Const alert and no apparent distress Constitutional Narrative: is present at the bedside. General Appearance: cooperative HEENT normocephalic and head/scalp atraumatic HEENT Narrative: Nasogastric tube in place Eyes PERRL, EOMs intact bilaterally and conjunctivae normal Neck supple General: trachea midline Chest inspection of chest normal Resp normal respiratory effort Auscultation: diminished lung sounds; Negative for rales, rhonchi or wheezes Cardio regular rate and regular rhythm GI non-tender Inspection: abdominal distention Extremity no clubbing, cyanosis or edema Skin no rashes or lesions noted Neuro CN's II-XII intact bilaterally, moves all extremities and no focal motor deficits Psych cooperative and affect normal Lab / Micro Data 09/04/24 08:26 09/04/24 08:26 Labs: Laboratory Results - last 24 hr 09/04/24 08:26: WBC 4.9, RBC 6.23 H, Hgb 17.7 H, Hct 54.3 H, MCV 87.2, MCH 28.4, MCHC 32.6, RDW Std Deviation 46.9 H, RDW Coeff of [place] 14.7 H, Plt Count 317, MPV 9.5, Immature Gran % (Auto) 1.400 H, Neut % (Auto) 68.2, Lymph % (Auto) 14.1 L, [place] % (Auto) 15.7 H, Eos % (Auto) 0.0, Baso % (Auto) 0.6, Absolute Neuts (auto) 3.3, Absolute Lymphs (auto) 0.69 L, Nucleated RBC % 0, Sodium 136, Potassium 3.5, Chloride 105, Carbon Dioxide 19.0 L, Anion Gap 12, BUN 58 H, Creatinine 3.05 H, Estim Creat Clear Calc 22.92, Est GFR (MDRD) Af Amer 26 L, Est GFR (MDRD) Non-Af 21 L, BUN/Creatinine Ratio 19.0, Glucose 186 H, Calcium 8.4 L Imaging Radiology Impression Abdomen/Pelvis CT 09/04/24 07:15 IMPRESSION: Small bowel obstruction with multiple dilated small bowel loops and right lower quadrant transition zone. Mild distal esophageal wall thickening, likely esophagitis. Nasogastric tube tip in the stomach. Diffuse fluid distention of bowel suggesting a component of enteritis. Colonic diverticulosis without acute diverticulitis. Malpositioned right ureteral stent, looped in the mid ureter with tip deflected inferiorly. Fullness of the right renal collecting system which may represent a combination of hydronephrosis with renal sinus cysts. Bilateral nonobstructing renal calculi. Bilateral renal cysts. Mild bilateral pleural effusions with lower lobe atelectasis. 1.2 cm left adrenal nodule. If there is no history of malignancy consider a follow-up low dose, non-contrast adrenal CT or chemical-shift adrenal MRI in 12 months. If there is a history of malignancy recommend a low dose, non-emergent, non-contrast adrenal CT or chemical-shift adrenal MRI follow-up study. Mild biliary sludge or artifact from vicarious excretion of contrast in the gallbladder. Electronically Signed: Pretty Crockett MD at 11:09 EST , KUB X-Ray 09/04/24 09:30 IMPRESSION: Nasogastric tube tip in the region of the stomach. Multiple dilated air fluid levels in the small bowel concerning for bowel obstruction. Electronically Signed: Pretty Crockett MD at 9:46 EST , Charges/Coding Visit Charges Inpatient E&M: 73892 Init Hosp L3
[2024-09-04] MEDS: 0.9% Normal Saline (1000mL) 1,000 ML 125 ML IV ×2 (14:06→22:28)
[2024-09-04] MEDS: Heparin Injection (Vial) 5,000 UNIT/ML VIAL 5000 UNIT SC ×2 (15:07→22:27)
[2024-09-04 15:21] LABS: Mucous, Urine 0 SEEN /hpf (<or=2+); Squamous Epithelial Cells - UA 0 SEEN /hpf (0-5)
[2024-09-04 15:25] LABS: Color, Urine Yellow (Yellow); Glucose, Dipstick Normal (Normal); Ketone-Dipstick Negative (Negative); Leukocyte Esterase-Dipstick 25 /ul (Negative); Nitrite-Dipstick Positive (Negative); Occult Blood-Urine 150 /ul (Negative); Protein-Dipstick 100 mg/dl (Negative); Specific Gravity, Urine 1.015 (1.002-1.030); Urine Bilirubin Dipstick 1 mg/dL (Negative); Urine Clarity Clear (Clear); Urine Urobilinogen Normal (Normal)
[2024-09-04 15:29] LABS: Procalcitonin 28.92 ng/mL (0.00-0.09)
[2024-09-04 15:31] LABS: Bacteria 2+ /hpf (None Seen); White Blood Cells 0-5 SEEN /hpf (0-5)
[2024-09-04 15:32] LABS: Red Blood Cells-Urine 0-5 SEEN /hpf (0-5)
[2024-09-04 15:38] LABS: BNP,B-Type NATRIURETIC PEPTIDE 108.7 pg/mL (0-100)
[2024-09-04] MEDS: Piperacil/Tazobactam 3.375 GM in 0.9% Normal Saline (50mL MB+) 50 ML IV ×2 (15:50→22:12)
[2024-09-04] MEDS: Norepinephrine 8 MG in 0.9% Normal Saline (250mL Bag) 242 ML 9.4 MG CONT INF (15:53)
--- NOTE | 2024-09-04 16:39 | PN.HOSP_ITS ---
Reason for Visit Reason for Visit: Diagnoses Neoplasm of unspecified behavior of bladder (08/30/24) Unspecified intestinal obstruction, unspecified as to partial versus complete obstruction (08/30/24) Hypoxemia (08/30/24) Encounter for other preprocedural examination (08/30/24) Subjective Subjective Patient was seen and examined today, he was not discharged yesterday due to concerns from the patient's that his abdomen has become distended and he was uncomfortable. Urology decided to keep the patient in the hospital and reexamined him today, today patient's abdominal distention had worsened and his blood pressure declined and he had to be placed on oxygen again. General surgery was called to see the patient in consultation and due to the patient's low blood pressure he was transferred to ICU, PICC line was inserted and he was seen in consultation by critical care. Patient was also placed on Zosyn and his Levaquin was stopped. Patient had a repeat CT today that showed evidence of a small bowel obstruction. Objective Data Objective Data Vital Signs: Vital Signs Temp Pulse Resp BP Pulse Ox O2 Del Method O2 Flow Rate 97.8 F 94 22 H 99/60 94 Nasal Cannula 6 09/04/24 12:19 09/04/24 16:00 09/04/24 16:00 09/04/24 16:00 09/04/24 16:00 09/04/24 16:00 09/04/24 16:00 Oxygen Flow Rate (L/min) 6 Oxygen Delivery Method Nasal Cannula Weight: 90 kg Body Mass Index (BMI) 26.2 Intake & Output: Intake and Output for Last 24 Hours 09/02/24 09/03/24 09/04/24 23:59 23:59 23:59 Intake Total 300 / 300 1794 / 1794 2447.77 / 2447.77 Output Total 915 / 915 1000 / 1000 Balance -615 / -615 794 / 794 2447.77 / 2447.77 Lab / Micro Data 09/04/24 08:26 09/04/24 08:26 Labs: Laboratory Results - last 24 hr 09/04/24 08:26: WBC 4.9, RBC 6.23 H, Hgb 17.7 H, Hct 54.3 H, MCV 87.2, MCH 28.4, MCHC 32.6, RDW Std Deviation 46.9 H, RDW Coeff of [place] 14.7 H, Plt Count 317, MPV 9.5, Immature Gran % (Auto) 1.400 H, Neut % (Auto) 68.2, Lymph % (Auto) 14.1 L, [place] % (Auto) 15.7 H, Eos % (Auto) 0.0, Baso % (Auto) 0.6, Absolute Neuts (auto) 3.3, Absolute Lymphs (auto) 0.69 L, Nucleated RBC % 0, Sodium 136, Potassium 3.5, Chloride 105, Carbon Dioxide 19.0 L, Anion Gap 12, BUN 58 H, Creatinine 3.05 H, Estim Creat Clear Calc 22.92, Est GFR (MDRD) Af Amer 26 L, Est GFR (MDRD) Non-Af 21 L, BUN/Creatinine Ratio 19.0, Glucose 186 H, Calcium 8.4 L 09/04/24 14:30: Lactic Acid 3.0 H*, B-Natriuretic Peptide 108.7 H, Procalcitonin 28.92 H 09/04/24 14:50: Urine Color Yellow, Urine Clarity Clear, Urine pH 5.0, Ur Specific [place] 1.015, Urine Protein 100 H, Urine Glucose (UA) Normal, Urine Ketones Negative, Urine Occult Blood 150 H, Urine Nitrite Positive H, Urine Bilirubin 1 H, Urine Urobilinogen Normal, Ur Leukocyte Esterase 25 H, Urine RBC 0-5 SEEN, Urine WBC 0-5 SEEN, Ur Squamous Epith Cells 0 SEEN, Urine Bacteria 2+, Urine Mucus 0 SEEN Micro: Microbiology 09/02/24 13:52 Mucosa - Nose Respiratory Panel (PCR) - Final Radiography Diagnostic Testing: Radiology Impression Abdomen/Pelvis CT 09/04/24 07:15 IMPRESSION: Small bowel obstruction with multiple dilated small bowel loops and right lower quadrant transition zone. Mild distal esophageal wall thickening, likely esophagitis. Nasogastric tube tip in the stomach. Diffuse fluid distention of bowel suggesting a component of enteritis. Colonic diverticulosis without acute diverticulitis. Malpositioned right ureteral stent, looped in the mid ureter with tip deflected inferiorly. Fullness of the right renal collecting system which may represent a combination of hydronephrosis with renal sinus cysts. Bilateral nonobstructing renal calculi. Bilateral renal cysts. Mild bilateral pleural effusions with lower lobe atelectasis. 1.2 cm left adrenal nodule. If there is no history of malignancy consider a follow-up low dose, non-contrast adrenal CT or chemical-shift adrenal MRI in 12 months. If there is a history of malignancy recommend a low dose, non-emergent, non-contrast adrenal CT or chemical-shift adrenal MRI follow-up study. Mild biliary sludge or artifact from vicarious excretion of contrast in the gallbladder. Electronically Signed: Pretty Crockett MD at 11:09 EST , KUB X-Ray 09/04/24 09:30 IMPRESSION: Nasogastric tube tip in the region of the stomach. Multiple dilated air fluid levels in the small bowel concerning for bowel obstruction. Electronically Signed: Pretty Crockett MD at 9:46 EST , Physical Exam Const alert, oriented x3, no apparent distress and average body habitus General Appearance: cooperative, well kempt and well developed Orientation / Consciousness: awake, oriented to person, oriented to place and oriented to time HEENT normocephalic and moist oral mucous membranes Eyes PERRL, EOMs intact bilaterally and conjunctivae normal Neck supple, no JVD, thyroid normal and no carotid bruits General: trachea midline Resp normal respiratory effort and clear to auscultation bilaterally Auscultation: Negative for rales, rhonchi or wheezes Cardio regular rate, regular rhythm, no murmurs, no rub and no gallops GI normal to inspection, nondistended, normoactive bowel sounds, soft to palpation and non-tender GI Narrative: Patient's abdomen is distended, bowel sounds are diminished in all 4 quadrants, there is generalized abdominal tenderness to palpation. No rebound abdominal tenderness was noted. Auscultation: hypoactive bowel sounds Extremity no clubbing, cyanosis or edema Skin no rashes or lesions noted General Skin Exam: no breakdown Neuro oriented x3, CN's II-XII intact bilaterally, moves all extremities, no focal motor deficits and no sensory deficits noted Sensorium / Orientation: awake and alert Speech: speech normal Psych affect normal Assessment & Plan Assessment/Plan (1) Hypotension: PLAN: Plan 1. Acute shock-type unknown, patient appears to be hypovolemic however, he will be given IV fluids and monitored in ICU, critical care is participating in his care #2 hypoxia-etiology unclear, patient will remain on aerosol treatments and supplemental oxygen, pulse ox will be monitored #3 small bowel obstruction-General Surgery is participating in his care, patient currently has an NG tube in place #4 essential hypertension-patient's blood pressure medications will be held due to his n.p.o. status #5 acute kidney injury-most likely in part secondary to contrast mediated reason, patient will continue to receive fluids and labs will be monitored, it may be necessary for nephrology to see the patient if his kidney functions continue to decline Total clinical time spent by myself addressing patient's medical issues, reviewing all of his data, and collaborating with patient's care team: 50 minutes Charges/Coding Visit Charges Inpatient E&M: 66216 Subs Hosp L3
--- NOTE | 2024-09-04 18:25 | NURSING ---
1315-DR DODGE IN TO SEE PT AND WAS ON SPEAKER PHONE. AFTERWARDS, THIS NURSE ADVANCED NG ADDITIONAL 5 INCHES, DRAINING AN ADDITIONAL 700MLS GREEN DRNG FROM ABD AND THEN TRANSFERRED TO [id number]
--- NOTE | 2024-09-04 18:35 | NURSING ---
11:45-DYNAMIC ACCESS HERE TO PLACE PICC
[2024-09-04 18:51] LABS: Reflex Lactate? Y
[2024-09-04] MEDS: Ipratropium/Albuterol Sulfate 3 ML AMPUL.NEB INHALATION (20:05)
[2024-09-04 21:29] LABS: Lactic Acid 3.8 mmol/L (0.4-1.9)
[2024-09-04] MEDS: Latanoprost 0.005% 1 Bottle 1 DRP OPHTHALMIC (22:27)
[2024-09-05] VITALS (10 sets, daily range): BP systolic 58–116; BP diastolic 12–97; PULSE 28–133; RESP 26–35; TEMP 36.7; O2SAT 94–99
--- NOTE | 2024-09-05 03:30 | NURSING ---
This RN notified Dr. Moreno of hemodynamic instability with high HR/low BP/inability to maintain O2 saturation. Moreno ordered STAT ABG; Trop; and BNP, as well as a stat Chest xray to check for fluids.
--- NOTE | 2024-09-05 03:33 | RAD_ITS ---
INDICATION: Check for Aspirate EXAMINATION/TECHNIQUE: X-RAY - XR Chest 1 View AP portable. 4:00 AM COMPARISON: Prior study dated: 09/02/2024 FINDINGS: LINES/DEVICES: Tip of the nasogastric tube is in the stomach. PICC from right brachial approach tip in the region of the SVC/right atrial junction. LUNGS: Patchy opacities in the lung bases increased compared to prior. No consolidation. No pneumothorax. MEDIASTINUM: Unremarkable. CARDIAC SILHOUETTE: Not enlarged. BONES AND SOFT TISSUES: No acute abnormalities. RAD/Chest 1 View (Portable) IMPRESSION: Increased bibasilar infiltrates or atelectasis, possible aspiration. Electronically Signed: Gladis Rivas MD at 5:45 EST ,
[2024-09-05 04:03] LABS: Hematocrit 67.9 % (40-54); Hemoglobin 20.9 g/dL (13.0-16.5); Mean Corp Hgb Conc 30.8 g/dL (32-36); Mean Corpuscular Hgb 28.6 pg (27.0-32.0); Mean Corpuscular Volume 92.9 fL (80-94); Mean Platelet Vol. 9.7 fl (6.2-12.0); POSITIVE COUNT YES; POSITIVE DIFFERENTIAL YES; POSITIVE MORPHOLOGY YES; Platelet Count 264 K/mm3 (150-450); RBC Distribution Width CV 17.1 % (11.6-14.6); RBC Distribution Width SD 51.7 fl (35.1-43.9); Red Blood Count 7.31 M/mm3 (4.6-6.2); White Blood Count 22.3 K/mm3 (4.4-11.0)
[2024-09-05 04:04] LABS: Differential Indicated MANUAL DIFF
--- NOTE | 2024-09-05 04:18 | CT_ITS ---
INDICATION: AMS EXAMINATION: CT BRAIN - CT Head or Brain W/O Contrast Injection TECHNIQUE: Multiple axial images were obtained of the head without intravenous contrast. The protocol utilizes one or more of the following dose reduction techniques: automated exposure control, adjustment of mA and/or kV according to patient size,and/or use of iterative reconstruction technique. IV Contrast dosage and agent: None. RADIATION DOSAGE (If Supplied By Facility): CTDIvol = ( 44.99 ) mGy, DLP = ( 981.71 ) mGycm COMPARISON: No relevant prior comparison study available FINDINGS: Significant image degradation from patient positioning, and extensive artifact related to dental hardware/fillings and tubes. BRAIN: Also appears to be residual IV contrast related to prior IV contrast administration. 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 No definite acute bleed. No edema. Valdes-white matter differentiation is maintained. VENTRICLES AND SULCI: Not dilated. EXTRA-AXIAL: No hemorrhage, fluid collection, or mass. CALVARIUM / SKULL BASE: Unremarkable. FACE/SINUSES: Left frontal sinus is partially opacified with fluid level. Mastoid air cells on the left are partially opacified. SOFT TISSUES: Unremarkable. CT/Brain/Head without Contrast IMPRESSION: Left frontal sinusitis possibly acute. No definite acute intracranial findings, within limitations. Left mastoid disease. MRI may be helpful for further evaluation as clinically indicated. Electronically Signed: Gladis Rivas MD at 4:58 EST ,
[2024-09-05 04:29] LABS: BNP,B-Type NATRIURETIC PEPTIDE 94.2 pg/mL (0-100)
[2024-09-05 04:32] LABS: Base Excess -25 mmol/L (-2 to +2); Bicarbonate 8.3 mmol/L (22-26); Blood Gas Specimen Type ART; Mode Not entered; O2 Delivery Device NRB; PO2 92 mmHG (75-100); SITE R Fem; SO2 89 % (95-99); Total Carbon Dioxide 10 mmol/L; pCO2 42.4 mmHg (35-45)
[2024-09-05 04:44] LABS: Bedside Glucose 74 mg/dL (74-106)
[2024-09-05 04:46] LABS: Troponin-I HS 76 pg/mL (3.0-78.0)
[2024-09-05] MEDS: Sodium Bicarbonate 8.4% 50 ML Syringe 50 MEQ IV (04:47)
[2024-09-05] MEDS: Etomidate 20 MG/10 ML Vial 10 MG IV (04:48)
--- NOTE | 2024-09-05 06:06 | PN.HOSP_ITS ---
Hospitalist Note Rapid response was called overhead at approximately 4:04 AM. I arrived at the bedside in the ICU patient having had a syncopal event after being set up for an x-ray. At first he was lethargic and unresponsive but then he started to have some spontaneous movement but never regained his full mental status. He was then emergently taken for noncontrast head CT which revealed no definite acute intracranial findings. He had an ABG drawn in the ICU just prior to us going to radiology with result called the patient had a pH of 6.9 with a PCO2 of 42.4 mmHg and a pO2 of 92 mmHg with a bicarbonate level of 8.3 mmol/L on a 100% NRB with patient then given 1 amp of sodium bicarbonate and emergently intubated after induction with 10 mg of etomidate with intubation on the second attempt with a glide scope. Immediate color change was noted on the CO2 detector with chest x-ray ordered to confirm ET tube in good position. Unfortunately, at appr oximately 4:58 AM the patient then developed SVT at ~150 bpm which was treated with 6 mg of adenosine x 1. Patient then developed PEA arrest and he was treated with a total of 9 doses of epinephrine in addition to 2 additional doses of sodium bicarbonate with a temporary period of improvement followed by another bout of SVT at ~150 bpm requiring 1 shock at 200 J. He was also treated with 2 g of magnesium sulfate, 2 amps of calcium gluconate and 125 mg Solu-Medrol followed by 3 more additional doses of epinephrine and atropine for ongoing PEA arrest. In spite of heroic measures this patient at 5:55 AM. UN DATE: 09/05/24 [facility], DEPARTMENT OF LABORATORIES PAGE 1 RUN TIME: 616 Specimen Inquiry [facility] [address], [place], [address] PATIENT: BRANDYN MCMULLEN LOC: ICU U #: [id number] : 1945 AGE/SX: 79/M FACILITY: [facility] ROOM: [place] [address] RE08/30/[address]: Dr. Tanmay Moon, STATUS:ADM IN ED: 1 DIS: ~ SPEC #: [id number] AUDREY: 09/05/24 STATUS: COMP REQ #: [id number] RECD: 09/05/24-[address]: Dr. Tanmay Moon MD ENTERED: 09/05/24-430 [facility] DR: MD Dr. Gonzalez Dubon MD Dr. Bruce Arthur, MD Dr. Derek Brown, DO Dr. David P Myers, MD Dr. Edward Matheis, MD Dr. Gautam Baskaran, MD Dr. Yordanos Habtegebriel, MD Dr. Hemant Dand, MD Dr. Jose Ochoa, MD Dr. Justin Wong, MD Dr. Kimber Foust, MD Dr. Lamia Aljundi, MD Dr. Mark Tereletsky, DO Dr. Pritam Ghosh, MD Dr. Pavan Irukulla, MD Dr. Rohini Kalisetti, MD Dr. Saad Farooqi, MD Dr. Sukhdeep Dhesi, DO Dr. Sujoy Gill, MD Dr. Steven A Wanek, MD Dr. Timothy Fernstrom, DO Dr. Vikram Anand, MD Dr. William Haden, MD ~ Test Result Flag Reference Range IBG Blood Gas Type ART SITE R Fem SARAH TEST N/A Mode Not entered O2 Delivery Dev NRB FI02 100.0 Time Given 04:27:[address] Li Read Back By Yes pH 6.90 *L 7.35-7.45 pCO2 42.4 35-45 mmHg PO2 92 75-100 mmHG HCO3 8.3 L 22-26 mmol/L BE -25 L -2 to +2 mmol/L TOTAL CO2 10 mmol/L SO2 89 L 95-99 % [facility] Imaging Services [address] [place] [id number] Brain/Head without Contrast MR#: [id number] Acct: [id number] Name: BRANDYN MCMULLEN LENKA Rep #: [id number] : 1945 M 79 From: Gladis Rivas MD PCP: Dr. Shira Mora MD Status: ADM IN Study: Brain/Head without Contrast Date of Exam: 09/05/24 Exam# [id number] Ordering Dr: Arnoldo Li DO INDICATION: AMS EXAMINATION: CT BRAIN - CT Head or Brain W/O Contrast Injection TECHNIQUE: Multiple axial images were obtained of the head without intravenous contrast. The protocol utilizes one or more of the following dose reduction techniques: automated exposure control, adjustment of mA and/or kV according to patient size,and/or use of iterative reconstruction technique. IV Contrast dosage and agent: None. RADIATION DOSAGE (If Supplied By Facility): CTDIvol = ( 44.99 ) mGy, DLP = ( 981.71 ) mGycm COMPARISON: No relevant prior comparison study available FINDINGS: Significant image degradation from patient positioning, and extensive artifact related to dental hardware/fillings and tubes. BRAIN: Also appears to be residual IV contrast related to prior IV contrast administration. 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 No definite acute bleed. No edema. Valdes-white matter differentiation is maintained. VENTRICLES AND SULCI: Not dilated. EXTRA-AXIAL: No hemorrhage, fluid collection, or mass. CALVARIUM / SKULL BASE: Unremarkable. FACE/SINUSES: Left frontal sinus is partially opacified with fluid level. Mastoid air cells on the left are partially opacified. SOFT TISSUES: Unremarkable. CT/Brain/Head without Contrast IMPRESSION: Left frontal sinusitis possibly acute. No definite acute intracranial findings, within limitations. Left mastoid disease. MRI may be helpful for further evaluation as clinically indicated. Electronically Signed: Gladis Rivas MD at 4:58 EST , CC: Dr. Arnoldo Li DO; Dr. Shira Mora MD ~ Concrete Laborer: Signed [facility] Imaging Services [address] [place] [address] Abd [facility] [id number] Acct: [id number] Name: BENEDICTBRANDYN LENKA Rep #: [id number] : 1945 M 79 From: Gladis Rivas MD PCP: Dr. Shira Mora MD Status: ADM IN Study: Abd Decub and/or Erect(Portabl Date of Exam: 09/05/24 Exam# [id number] Ordering Dr: Torsten Singh MD INDICATION: SBO vs ileus EXAMINATION/TECHNIQUE: X-RAY - XR Abdomen W/ Decub and/or Erect Views portable. 4:00 AM COMPARISON: Prior study dated: 09/04/2024 CT abdomen and pelvis, and abdominal x-ray. FINDINGS: AP supine and upright views. Tip of the nasogastric tube is in the mid stomach. There is a catheter overlying the pelvis extending to the right of L4, and looped several times. Corresponds to a ureteral stent on prior CT and is essentially unchanged compared to that study. Moderately dilated small bowel. Similar to prior. No free air. Lung bases are not well assessed. RAD/Abd Decub and/or Erect(Portabl IMPRESSION: Dilated small bowel pattern consistent with small bowel obstruction and not significantly changed. Electronically Signed: Gladis Rivas MD at 6:13 EST , CC: Dr. Shira Mora MD; Dr. Torsten Singh MD ~ Concrete Laborer: Signed
--- NOTE | 2024-09-05 06:18 | PCM.DC.SUM ---
Providers Date of Admission: 08/30/24 Date of Discharge: 09/05/24 Primary Care Physician: Dr. Shira Mora MD Consultations 09/02/24 07:42 Consult: Hospitalist Routine Consulting Provider: Ykaov Koo Reason for Consult: pnuemonia EMERGENT Consult: No Notified: Yes Date Notified: 09/02/24 Time Notified: 08:20 Method of Notification: Verbal 09/04/24 12:15 Consult: General Surgery Routine Consulting Provider: Torsten Singh Reason for Consult: possible ileus EMERGENT Consult: No Notified: Yes Date Notified: 09/04/24 Time Notified: 11:30 Method of Notification: Verbal Method of Consult:: In-Person Comments:: DR EMERSON SPOKE W/DR SINGH 09/04/24 13:54 Consult: Mainframe Programmer / Pulmonary Medicine Routine Consulting Provider: Intensivists/Pulmonary Med Reason for Consult: hypotension EMERGENT Consult: No Notified: Yes Date Notified: 09/04/24 Time Notified: 09:09 Method of Notification: Verbal Reason For Visit: REIMPLANT RIGHT URETER Diagnosis Discharge Diagnosis (1) Hypotension: Status: Acute Code(s): I95.9 - Hypotension, unspecified (2) Small bowel obstruction: Status: Acute Code(s): K56.609 - Unspecified intestinal obstruction, unspecified as to partial versus complete obstruction (3) Hypoxemia: Status: Acute Code(s): R09.02 - Hypoxemia (4) Bladder tumor: Status: Acute Code(s): D49.4 - Neoplasm of unspecified behavior of bladder Medications at Discharge Home Medications amlodipine 10 mg tablet 10 mg PO DAILY bp 06/25/23 atorvastatin 20 mg tablet 20 mg PO QHS cholesterol 06/25/23 hydrochlorothiazide 12.5 mg capsule 12.5 mg PO DAILY edema 06/25/23 latanoprost 0.005 % eye drops 1 drp ophthalmic (eye) QHS glaucoma 06/25/23 timolol maleate 0.5 % eye drops 1 drp ophthalmic (eye) .QAM glaucoma 06/25/23 ibuprofen 600 mg tablet 600 mg PO Q6H PRN fever or pain 3 days #20 tabs 05/16/24 ciprofloxacin HCl 500 mg tablet 500 mg PO BID #14 tabs 08/29/24 docusate sodium 100 mg capsule (Colace) 100 mg PO BID #20 caps 08/29/24 oxycodone 5 mg tablet 5 mg PO Q6H PRN pain 3 days #14 tabs 08/29/24 Hospital Course Operations None (Robotic right ureteral reimplantation) Summary of Care Provided Minutes Spent on Discharge: 60 Hospital Course: This is a 79-year-old male who has a history of bladder cancer and had resection of a tumor over the right ureteral orifice, it was a noninvasive tumor. After the surgery stent was put in to allow the ureter heal up the ureter scarred down so he was taken back to surgery few months ago the ureter was dilated I found a stone in the ureter and a stone in the kidney there was a polyp was also in the ureter this was biopsied came back negative for cancer. And then we left and that the stent in for about 6 weeks. And then a follow-up cystoscopy he was found to have scarred down right distal ureter and on ultrasound was found to have a hydronephrotic kidney. At that point offered the options of stent placement versus reconstructive surgery since the kidney initially would not stop working without intervention. Patient elected to have right ureteral reimplantation to bypass the scar tissue. He underwent surgery on August 29, with a robotic ureteroneocystostomy. Uncomplicated surgery only took an hour and a half and successful implantation of the ureter into the bladder stent had been put in between the bladder and the ureter., On postoperative day #1 the YOHAN output was minimal he was doing well we are think about discharging home the next day with a Matthews catheter, he was tolerating diet. Then on postoperative day #2 he was still not ready to go home yet had not had any gas or bowel movements yet so we gave him a Dulcolax suppository try to encourage him to ambulate but also was found to have a low saturation had a low-grade fever of 99.3 chest x-ray was done and there is suspicion for pneumonia so he was started from [facility] the Levaquin again his vitals are stable at this point blood pressure was 124/68 pulse ox normal it was low at 92 requiring 3 L of oxygen, his creatinine is 1.3, then on postop day #3 he still looks like he was doing develop an ileus but he reported passing gas also had reported having liquid bowel movements we give another Dulcolax depository I was think about sending him home but he still required oxygen and on the chest x-ray the question of a pneumonia so he was on antibiotics YOHAN output at increased so I sent off the fluid for creatinine this came back normal so we knew this was not urine leak. Chest x-ray impression was small left pleural effusion pneumonia atelectasis. On postoperative day #4 he was tolerating liquids and soft diet but at this point I still could not discharge him home because he still required oxygen so a consult was put into the hospitalist for pneumonia to help management with pneumonia. Hospitalist saw the patient that they and he was found to have 90% oxygenation hospitalist thought that with his long history of smoking over 70 years that he probably had underlying COPD that was undiagnosed he did report having a cough and some greenish sputum production he was requiring 4 L of oxygen was 95% he was not any distress at this point he was comfortable on oxygen no fevers or chills his blood pressure was normalized temperature was 98.4 white blood count was 9 creatinine is 1.7. So was felt like most likely that his oxygen requirement nation and hypoxia was due to bronchospasms or COPD he was placed on aerosol treatments and he thought that perhaps there is an element of COPD, he was on Levaquin we decided to leave him on Levaquin for 5 to 7 days. Otherwise he did have hypertension but this was controlled and history of hyperlipidemia on statin. On postoperative day #5 he looked like he was improving reported that he was tolerating liquid diet also having liquid bowel movements. At that point it was determined that he probably had underlying COPD the hospitalist had arranged for discharge with home oxygen patient and we were getting approval from insurance to send him home with oxygen but he did not improve his oxygenation and he failed to meet criteria and he was good to be discharged home without oxygen that evening the nurse had called me and told me that the is little bit concerned about him coming home so we decided to keep him another night, and also the hospitalist to see the patient we did a CT scan of the chest to rule out pulmonary embolism because we were concerned about his oxygenation and he was not going to be requiring oxygen as an outpatient and a CTA of the chest demonstrated no pulmonary embolism no dissection some emphysema changes in his lungs he had a pleural effusion the small. So because his belly become a little bit more distended that evening we decided not to discharge him home as originally planned in the morning he had been tolerating some regular diet at that point but his belly was more distended so we decided to keep him overnight for observation instead of discharging home. On postoperative day #6 I saw the patient in consultation at morning he has been Catherine becoming a little bit more distended he said he was not tolerating food or liquids at this point felt nauseated so I decided to order a CT scan of the abdomen pelvis with oral contrast and check blood work. His creatinine was about the same at 1.7, his white blood count was 11.5, potassium was low at 3.0 so I ordered potassium for to replace his low potassium. I reviewed the CAT scan of the chest from the prior day that showed no significant findings on this CAT scan of the chest. CAT scan was done and it was dictated for a possible small bowel obstruction versus ileus so a consultation was put in with general surgery, Dr. Singh, Dr. Mcclendon saw the patient in consultation and in his notes he reports the patient was passing gas passing some liquid stool but his abdomen was still distended he did have some nausea for the last 24 hours images indicate that he has a small bowel obstruction he was thinking possibly person early adhesions from surgery also generalized ileus was also another possibility. He felt reassured that since he was passing gas that we could try conservative measures and so nasogastric tube was placed to low intermittent suction to decompress his stomach he was kept n.p.o. And he advised close follow-up to see if his obstruction would resolve on its own. 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 Of note on the CAT scan it was found that the proximal stent in the ureter was not called coiled right I was aware this but decided given situation that it stent change is not necessary. So he was transferred to the ICU because of hypovolemia, still was now his hypoxia had worsened required aerosol treatments and supplemental oxygen but he was stable on room air vital signs at that point were stable temperature was 97.8 pulse of 94 respirations in the 20s blood pressure was slightly low at 99/60 and he was on 6 L of nasal cannula, suddenly last night around 5:00 in the morning I was called to see the patient at 4:00 in the morning the hospitalist that arrived at the patient's bedside for a syncopal event after an x-ray had been done I spoke to the nurse he reports that the patient had been and actually passing gas was having bowel movements but then when they sat him up for an x-ray he suddenly became lethargic and unresponsive and lost full mental status and emergency CAT scan of the head was done that did not demonstrate any acute findings he had a blood gas done that showed the patient was acidotic 6.9 O2 is 92 and pCO2 is 42 bicarb was elevated he was given sodium bicarb emergent emergently and then later that morning at around 4:58 AM patient suddenly developed supraventricular tachycardia with heart rate 150 and then patient went to pulseless electrical activity and went to cardiac arrest. Patient underwent heroic code episode and the nursing staff and team worked on him for over an hour and then finally he was given multiple rounds of magnesium calcium gluconate Solu-Medrol atropine, and also epinephrine drip but despite the heroic effort of the team the patient at 5:55 AM. During the beginning of the code the family was made aware the came up, the finally arrived I spoke to her and let her know the situation and the saw the patient the way was consoled regarding the situation that his her has . Grieving services were offered to the . Weight / BMI Weight Weight: 90 kg Body Mass Index (BMI) 26.2 ABG / Lab / Microbiology Data 09/05/24 03:40 09/04/24 08:26 Laboratory: Laboratory Results - last 24 hr 09/04/24 08:26: WBC 4.9, RBC 6.23 H, Hgb 17.7 H, Hct 54.3 H, MCV 87.2, MCH 28.4, MCHC 32.6, RDW Std Deviation 46.9 H, RDW Coeff of [place] 14.7 H, Plt Count 317, MPV 9.5, Immature Gran % (Auto) 1.400 H, Neut % (Auto) 68.2, Lymph % (Auto) 14.1 L, [place] % (Auto) 15.7 H, Eos % (Auto) 0.0, Baso % (Auto) 0.6, Absolute Neuts (auto) 3.3, Absolute Lymphs (auto) 0.69 L, Nucleated RBC % 0, Sodium 136, Potassium 3.5, Chloride 105, Carbon Dioxide 19.0 L, Anion Gap 12, BUN 58 H, Creatinine 3.05 H, Estim Creat Clear Calc 22.92, Est GFR (MDRD) Af Amer 26 L, Est GFR (MDRD) Non-Af 21 L, BUN/Creatinine Ratio 19.0, Glucose 186 H, Calcium 8.4 L 09/04/24 14:30: Lactic Acid 3.0 H*, B-Natriuretic Peptide 108.7 H, Procalcitonin 28.92 H 09/04/24 14:50: Urine Color Yellow, Urine Clarity Clear, Urine pH 5.0, Ur Specific [place] 1.015, Urine Protein 100 H, Urine Glucose (UA) Normal, Urine Ketones Negative, Urine Occult Blood 150 H, Urine Nitrite Positive H, Urine Bilirubin 1 H, Urine Urobilinogen Normal, Ur Leukocyte Esterase 25 H, Urine RBC 0-5 SEEN, Urine WBC 0-5 SEEN, Ur Squamous Epith Cells 0 SEEN, Urine Bacteria 2+, Urine Mucus 0 SEEN 09/04/24 20:40: Lactic Acid 3.8 H* 09/05/24 03:40: WBC 22.3 H, RBC 7.31 H, Hgb 20.9 H*, Hct 67.9 H, MCV 92.9 D, MCH 28.6, MCHC 30.8 L D, RDW Std Deviation 51.7 H, RDW Coeff of [place] 17.1 H, Plt Count 264, MPV 9.7, Neut % (Auto) Not Reportable, Troponin I High Sens 76, B-Natriuretic Peptide 94.2 09/05/24 04:19: POC Glucose 74 Microbiology: Microbiology 09/02/24 13:52 Mucosa - Nose Respiratory Panel (PCR) - Final ABG: ABG 09/05/24 04:25 Specimen Type ART Sample Site R Fem pH 6.90 L* Bicarbonate Actual 8.3 L Total CO2 10 Base Excess -25 L O2 Saturation 89 L O2 % 100.0 ABG pCO2 42.4 ABG pO2 92 Ugo Test N/A O2 Delivery Device NRB Vent Mode Not entered Crit Call To/Read Back Yes Blood Gas Notified Whom Dr. Li Blood Gas Notified Time 04:27:13 Radiography Diagnostic Testing: Radiology Impression Abdomen/Pelvis CT 09/04/24 07:15 IMPRESSION: Small bowel obstruction with multiple dilated small bowel loops and right lower quadrant transition zone. Mild distal esophageal wall thickening, likely esophagitis. Nasogastric tube tip in the stomach. Diffuse fluid distention of bowel suggesting a component of enteritis. Colonic diverticulosis without acute diverticulitis. Malpositioned right ureteral stent, looped in the mid ureter with tip deflected inferiorly. Fullness of the right renal collecting system which may represent a combination of hydronephrosis with renal sinus cysts. Bilateral nonobstructing renal calculi. Bilateral renal cysts. Mild bilateral pleural effusions with lower lobe atelectasis. 1.2 cm left adrenal nodule. If there is no history of malignancy consider a follow-up low dose, non-contrast adrenal CT or chemical-shift adrenal MRI in 12 months. If there is a history of malignancy recommend a low dose, non-emergent, non-contrast adrenal CT or chemical-shift adrenal MRI follow-up study. Mild biliary sludge or artifact from vicarious excretion of contrast in the gallbladder. Electronically Signed: Pretty Crockett MD at 11:09 EST , KUB X-Ray 09/04/24 09:30 IMPRESSION: Nasogastric tube tip in the region of the stomach. Multiple dilated air fluid levels in the small bowel concerning for bowel obstruction. Electronically Signed: Pretty Crockett MD at 9:46 EST , Chest X-Ray 09/05/24 03:33 IMPRESSION: Increased bibasilar infiltrates or atelectasis, possible aspiration. Electronically Signed: Gladis Rivas MD at 5:45 EST , Brain CT 09/05/24 04:18 IMPRESSION: Left frontal sinusitis possibly acute. No definite acute intracranial findings, within limitations. Left mastoid disease. MRI may be helpful for further evaluation as clinically indicated. Electronically Signed: Gladis Rivas MD at 4:58 EST , Abdomen X-Ray 09/05/24 13:21 IMPRESSION: Dilated small bowel pattern consistent with small bowel obstruction and not significantly changed. Electronically Signed: Gladis Rivas MD at 6:13 EST , D/C Instructions Discharge Diet: No restrictions May shower in (days): 1 Call your doctor if you observe: Fever of 101 or Higher Catheter: Matthews to leg bag and Matthews to large bag Drain: [place] DC O2, CPAP, BIPAP Needs RN Home O2 Qualification: Home O2 Qualification: Is the patient on home oxygen No 09/03/24 12:33 Home O2 Qualification: AT REST 1- Pulse Ox at rest 93 09/03/24 12:33 Home O2 Qualification: WITH AMBULATION 1- Pulse Ox with ambulation 89 09/03/24 12:33 1- Oxygen Flow Rate with 0 09/03/24 12:33 ambulation PSN CPAP & BiPAP: BiPAP & CPAP Settings per PSN Fraction of Inspired Oxygen ( 50 09/05/24 03:00 FIO2) Home Oxygen Instructions: Home O2 discharge Instructions Type of respiratory needs? Oxygen 09/03/24 07:27 DC Oxygen Instruction Oxygen frequency Continuous 09/03/24 07:27 Continuous oxygen liters per 2 09/03/24 07:27 minute Additional Home O2 Discharge instructions: No DC home with Oxygen: No Please Follow Up With: Tanmay Emerson MD When: Call [phone] for an appointment Meaningful Use Info Meaningful Use Meaningful Use Diagnoses (Choose all that apply): None applicable Ischemic Stroke Statin Dosing Therapy Reference: STATIN DOSE THERAPY REFERENCE: * Patients > 75 years receive moderate or high dose statin therapy. * Patients 75 years or YOUNGER should receive HIGH intensity statin dose unless contraindicated. You will be required to document reason for non-treatment if statin daily dose does not meet guidelines. HIGH DOSE STATIN THERAPY DAILY Atorvastatin > than or = to 40 mg Rosuvastatin > than or = to 20 mg Amlodipine + Atorvastatin > than or = to 2.5/40 mg Ezetimibe + Simvastatin 10/80 mg Simvastatin 80mg Discharge Plan Admission Admit Date/Time: 08/30/24 11:39 Primary Reason for Your Visit: reimplant right ureter. Attending Provider: Tanmay Emerson Primary Care Provider: Shira Mora Consulting Providers: Torsten Singh; Yakov Koo; Tobin Pedroza; Gonzalez Thomas; Jb Rick; Harris Duke; Arnoldo Bowman; Vazquez Wu; Kevin Peters; Claudette Hollis; Wes Alonso; Denny Love; Cory Baker; Linnette Johnson; Luiz Ramirez; Simon Wasserman; Amado Ponce; Reianldo Kaur; Bowen Durán; Tanika Srivastava; Walter Mendoza; Berto Trujillo; Antoine Yu Discharge Orders/Prescriptions Prescriptions: New oxycodone 5 mg tablet 5 mg PO Q6H PRN (Reason: pain) 3 Days Qty: 14 0RF ciprofloxacin HCl 500 mg tablet 500 mg PO BID Qty: 14 0RF docusate sodium [Colace] 100 mg capsule 100 mg PO BID Qty: 20 0RF Continued latanoprost 0.005 % drops 1 drp ophthalmic (eye) QHS Patient Comments: INSTILL ONE DROP IN EACH EYE AT BEDTIME timolol maleate 0.5 % drops 1 drp ophthalmic (eye) .QAM Patient Comments: INSTILL ONE DROP IN EACH EYE ONCE DAILY amlodipine 10 mg tablet 10 mg PO DAILY Patient Comments: TAKE 1 TABLET BY MOUTH EVERY DAY hydrochlorothiazide 12.5 mg capsule 12.5 mg PO DAILY Patient Comments: TAKE ONE CAPSULE BY MOUTH EVERY DAY atorvastatin 20 mg tablet 20 mg PO QHS Patient Comments: TAKE ONE TABLET BY MOUTH EVERY DAY AT BEDTIME ibuprofen 600 mg tablet 600 mg PO Q6H PRN (Reason: fever or pain) 3 Days Qty: 20 0RF Referrals / Follow Up: Tanmay Emerson MD [Med Staff - Active Staff] - Shira Mora MD [Primary Care Provider] - Disposition Disposition (needs filled in before D/C Order can be placed): Home, Self Care
[2024-09-05 06:22] LABS: Eosinophil 1 % (0-5); Lymphocyte 19 % (19-41); Metamyelocyte 10 % (0-1); Monocyte 22 % (0-10); Myelocyte 3 % (0-0); Neutrophil-Band 15 % (0-5); Neutrophil-Segmented 26 % (47-70); Nucleated Red Bld Cells,Manual 2 % (0-5); Other WBC Type 4 %; Total Cells Counted 100 (MANUAL DIFF)
[2024-09-05 06:24] LABS: Anisocytosis 2+; Macrocytosis 2+; Ovalocyte 1+; Platelet Estimate ADEQUATE (ADEQ); Polychromasia 2+
[2024-09-05 06:25] LABS: Absolute Neutrophil Count 9.1 X10^3/uL (2.0-7.7)
[2024-09-05 06:26] LABS: Absolute Lymphocyte Count 4.24 X10^3/uL (0.83-4.51)
[2024-09-05 07:28] LABS: Anion Gap 24 (5-15); BUN 78 mg/dL (7-18); BUN/Creat Ratio 16.1 RATIO (10-20); Calcium,Total 7.9 mg/dL (8.5-10.1); Chloride 108 mmol/L (98-107); Creatinine, Serum 4.85 mg/dL (0.70-1.30); EST Glomerular Filtration Rate 12 mL/min (>60); Est Glom Filt Rate - Afr Amer 15 mL/min (>60); Estimated Creatinine Clearance 14.41 ml/min; Glucose 112 mg/dL (74-106); Potassium 4.5 mmol/L (3.5-5.1); Sodium Level 142 mmol/L (136-145)
--- NOTE | 2024-09-05 08:16 | PCM.PN.INT ---
Objective Data Objective Data Vital Signs: Vital Signs Temp Pulse Resp BP Pulse Ox O2 Del Method O2 Flow Rate 98.1 F 128 H 30 H 116/97 H 94 Venturi Mask 15 09/05/24 00:00 09/05/24 03:00 09/05/24 03:00 09/05/24 03:00 09/05/24 03:00 09/05/24 03:00 09/05/24 03:00 FiO2 50 09/05/24 03:00 Oxygen Flow Rate (L/min) 15 Oxygen Delivery Method Venturi Mask Weight: 198 lb 6.656 oz Body Mass Index (BMI) 26.2 Intake & Output: Intake and Output for Last 24 Hours 09/03/24 09/04/24 09/05/24 23:59 23:59 23:59 Intake Total 1794 / 1794 4574.77 / 4739.77 1313.57 / 1313.57 Output Total 1000 / 1000 100 / 100 Balance 794 / 794 4574.77 / 4639.77 1213.57 / 1213.57 Lab / Micro Data 09/05/24 03:40 09/05/24 03:40 Labs: Laboratory Results - last 24 hr 09/04/24 08:26: WBC 4.9, RBC 6.23 H, Hgb 17.7 H, Hct 54.3 H, MCV 87.2, MCH 28.4, MCHC 32.6, RDW Std Deviation 46.9 H, RDW Coeff of [place] 14.7 H, Plt Count 317, MPV 9.5, Immature Gran % (Auto) 1.400 H, Neut % (Auto) 68.2, Lymph % (Auto) 14.1 L, [place] % (Auto) 15.7 H, Eos % (Auto) 0.0, Baso % (Auto) 0.6, Absolute Neuts (auto) 3.3, Absolute Lymphs (auto) 0.69 L, Nucleated RBC % 0, Sodium 136, Potassium 3.5, Chloride 105, Carbon Dioxide 19.0 L, Anion Gap 12, BUN 58 H, Creatinine 3.05 H, Estim Creat Clear Calc 22.92, Est GFR (MDRD) Af Amer 26 L, Est GFR (MDRD) Non-Af 21 L, BUN/Creatinine Ratio 19.0, Glucose 186 H, Calcium 8.4 L 09/04/24 14:30: Lactic Acid 3.0 H*, B-Natriuretic Peptide 108.7 H, Procalcitonin 28.92 H 09/04/24 14:50: Urine Color Yellow, Urine Clarity Clear, Urine pH 5.0, Ur Specific [place] 1.015, Urine Protein 100 H, Urine Glucose (UA) Normal, Urine Ketones Negative, Urine Occult Blood 150 H, Urine Nitrite Positive H, Urine Bilirubin 1 H, Urine Urobilinogen Normal, Ur Leukocyte Esterase 25 H, Urine RBC 0-5 SEEN, Urine WBC 0-5 SEEN, Ur Squamous Epith Cells 0 SEEN, Urine Bacteria 2+, Urine Mucus 0 SEEN 09/04/24 20:40: Lactic Acid 3.8 H* 09/05/24 03:40: WBC 22.3 H, RBC 7.31 H, Hgb 20.9 H*, Hct 67.9 H, MCV 92.9 D, MCH 28.6, MCHC 30.8 L D, RDW Std Deviation 51.7 H, RDW Coeff of [place] 17.1 H, Plt Count 264, MPV 9.7, Neut % (Auto) Not Reportable, Absolute Neuts (auto) 9.1 H, Absolute Lymphs (auto) 4.24, Total Counted 100, Neutrophils % (Manual) 26 L, Band Neutrophils % 15 H, Lymphocytes % (Manual) 19, Monocytes % (Manual) 22 H, Eosinophils % (Manual) 1, Metamyelocytes % 10 H, Myelocytes % 3 H, Other Cells % 4, Nucleated RBCs/100 WBC 2, Diff Path Review May foll, Platelet Estimate ADEQUATE, Polychromasia 2+, Anisocytosis 2+, Macrocytosis 2+, Ovalocytes 1+, Sodium 142, Potassium 4.5, Chloride 108 H, Carbon Dioxide 10.0 L, Anion Gap 24 H, BUN 78 H, Creatinine 4.85 H, Estim Creat Clear Calc 14.41, Est GFR (MDRD) Af Amer 15 L, Est GFR (MDRD) Non-Af 12 L, BUN/Creatinine Ratio 16.1, Glucose 112 H, Calcium 7.9 L, Troponin I High Sens 76, B-Natriuretic Peptide 94.2 09/05/24 04:19: POC Glucose 74 Micro: Microbiology 09/02/24 13:52 Mucosa - Nose Respiratory Panel (PCR) - Final ABG Data ABG results: ABG 09/05/24 04:25 Specimen Type ART Sample Site R Fem pH 6.90 L* Bicarbonate Actual 8.3 L Total CO2 10 Base Excess -25 L O2 Saturation 89 L O2 % 100.0 ABG pCO2 42.4 ABG pO2 92 Ugo Test N/A O2 Delivery Device NRB Vent Mode Not entered Crit Call To/Read Back Yes Blood Gas Notified Whom Dr. Li Blood Gas Notified Time 04:27:13 Radiography Diagnostic Testing: Radiology Impression Abdomen/Pelvis CT 09/04/24 07:15 IMPRESSION: Small bowel obstruction with multiple dilated small bowel loops and right lower quadrant transition zone. Mild distal esophageal wall thickening, likely esophagitis. Nasogastric tube tip in the stomach. Diffuse fluid distention of bowel suggesting a component of enteritis. Colonic diverticulosis without acute diverticulitis. Malpositioned right ureteral stent, looped in the mid ureter with tip deflected inferiorly. Fullness of the right renal collecting system which may represent a combination of hydronephrosis with renal sinus cysts. Bilateral nonobstructing renal calculi. Bilateral renal cysts. Mild bilateral pleural effusions with lower lobe atelectasis. 1.2 cm left adrenal nodule. If there is no history of malignancy consider a follow-up low dose, non-contrast adrenal CT or chemical-shift adrenal MRI in 12 months. If there is a history of malignancy recommend a low dose, non-emergent, non-contrast adrenal CT or chemical-shift adrenal MRI follow-up study. Mild biliary sludge or artifact from vicarious excretion of contrast in the gallbladder. Electronically Signed: Pretty Crockett MD at 11:09 EST , KUB X-Ray 09/04/24 09:30 IMPRESSION: Nasogastric tube tip in the region of the stomach. Multiple dilated air fluid levels in the small bowel concerning for bowel obstruction. Electronically Signed: Pretty Crockett MD at 9:46 EST , Chest X-Ray 09/05/24 03:33 IMPRESSION: Increased bibasilar infiltrates or atelectasis, possible aspiration. Electronically Signed: Gladis Rivas MD at 5:45 EST , Brain CT 09/05/24 04:18 IMPRESSION: Left frontal sinusitis possibly acute. No definite acute intracranial findings, within limitations. Left mastoid disease. MRI may be helpful for further evaluation as clinically indicated. Electronically Signed: Gladis Rivas MD at 4:58 EST Reading Location ID and State: [address] / [place] Tel , Service support , Abdomen X-Ray 09/05/24 13:21 IMPRESSION: Dilated small bowel pattern consistent with small bowel obstruction and not significantly changed. Electronically Signed: Gladis Rivas MD at 6:13 EST Reading Location ID and State: [id number] / [employer] Tel , Service support ,
--- NOTE | 2024-09-05 13:21 | RAD_ITS ---
INDICATION: SBO vs ileus EXAMINATION/TECHNIQUE: X-RAY - XR Abdomen W/ Decub and/or Erect Views portable. 4:00 AM COMPARISON: Prior study dated: 09/04/2024 CT abdomen and pelvis, and abdominal x-ray. FINDINGS: AP supine and upright views. Tip of the nasogastric tube is in the mid stomach. There is a catheter overlying the pelvis extending to the right of L4, and looped several times. Corresponds to a ureteral stent on prior CT and is essentially unchanged compared to that study. Moderately dilated small bowel. Similar to prior. No free air. Lung bases are not well assessed. RAD/Abd Decub and/or Erect(Portabl IMPRESSION: Dilated small bowel pattern consistent with small bowel obstruction and not significantly changed. Electronically Signed: Gladis Rivas MD at 6:13 EST ,
[2024-09-05 14:20] LABS: Pathologist Review Reviewed
== END 2024-09-05 05:55 | DRG 660 ==
LOC: MS3 09-03 11:07 → ICU 09-04 13:53
PROVIDERS: Anesthesiology; Internal Medicine; Internal Medicine Critical Care Medicine; Admitting Provider Urology; PCP Student in an Organized Health Care Education/Training Program; Referring Provider Urology; Visit Provider Urology
PROC: 0T164ZB Bypass Right Ureter to Bladder, Percutaneous Endoscopic Approach (ICD-10-PCS; principal; 2024-08-29 10:25)
DX: N13.5 Crossing vessel and stricture of ureter without hydronephrosis (principal); K56.600 Partial intestinal obstruction, unspecified as to cause; N17.9 Acute kidney failure, unspecified; J98.11 Atelectasis; J44.9 Chronic obstructive pulmonary disease, unspecified; I10 Essential (primary) hypertension; K83.8 Other specified diseases of biliary tract; F17.210 Nicotine dependence, cigarettes, uncomplicated; E78.5 Hyperlipidemia, unspecified; J40 Bronchitis, not specified as acute or chronic; J43.9 Emphysema, unspecified; I95.9 Hypotension, unspecified; D49.4 Neoplasm of unspecified behavior of bladder; R09.02 Hypoxemia; Z79.899 Other long term (current) drug therapy; Z79.02 Long term (current) use of antithrombotics/antiplatelets; N14.11 Contrast-induced nephropathy; D35.02 Benign neoplasm of left adrenal gland
CPT/HCPCS: 31500; 36415; 36569; 36600; 70450; 71045; 71046; 71275; 74018; 74019; 74177; 80048; 81001; 82570; 82803; 82962; 83605; 83880; 84145; 84484; 85025; 85027; 87040; 87633; 88305; 92950; 93005; 94640; 94668; 94762; 97162; 97530; Q9967; A4216; C1769; C2617; J0153; J2405; J3475